=== PATIENT | female | born 1990 | race African-American/Black ===

== ENCOUNTER 2017-01-06 19:02 | Emergency (ER) | payer OTHER ==
[2017-01-06] MEDS ORDERED: Aspirin Low Dose CHEW TAB* 81 MG PO ONE (19:39)
[2017-01-06] MEDS ORDERED: Ondansetron ODT TAB* 4 MG PO ONE (20:00)
[2017-01-06] MEDS ORDERED: Ketorolac INJ* 60 MG/2 ML VIAL IM ONE (20:00)
--- NOTE | 2017-01-06 20:03 | RAD ---
INDICATION: Chest pain COMPARISON: Chest x-ray June 17, 2016 TECHNIQUE: PA and lateral dual-energy views were obtained. FINDINGS: Bones/Soft Tissues: There are no acute bony findings. Cardiomediastinal: The cardiomediastinal silhouette is normal. Lungs: There are no infiltrates. Pleura: There are no pleural effusions. Other: None IMPRESSION: NO ACTIVE DISEASE.
[2017-01-06 20:07] LABS: Hematocrit 36 % (35-47); Hemoglobin 11.5 g/dl (12.0-16.0); Mean Corpuscular HGB Conc 32 g/dl (31-36); Mean Corpuscular Hemoglobin 25 pg (27-31); Mean Corpuscular Volume 76 fL (80-97); Mean Platelet Volume 7 um3 (7.4-10.4); Red Blood Count 4.69 10^6/ul (4.0-5.4); Red Cell Distribution Width 15 % (10.5-15); White Blood Count 4.2 10^3/ul (3.5-10.8)
[2017-01-06 20:30] LABS: Albumin 3.5 g/dL (3.2-5.2); BUN/Creatinine Ratio 10.7 (8-20); Calcium 9.1 mg/dL (8.6-10.3); EGFR Non-African American 65.3 (>60); Globulin 3.7 g/dL (2-4); Magnesium 1.9 mg/dL (1.9-2.7); Potassium 3.7 mmol/L (3.5-5.0); Total Bilirubin 0.3 mg/dL (0.2-1.0); Total Protein 7.2 g/dL (6.4-8.9)
[2017-01-06] MEDS ORDERED: Iohexol 350* (CONTRAST) 500 ML MDV IV ONE (21:09)
--- NOTE | 2017-01-06 21:54 | RAD ---
INDICATION: Chest pain. Short of breath. Evaluate for pulmonary embolus. COMPARISON: CTA chest March 02, 2011 TECHNIQUE: Axial source images were obtained from the thoracic inlet to the hemidiaphragms following administration of [address] angiographic technique was utilized. Coronal and sagittal reconstructed images were acquired. CHEST FINDINGS: Neck/thyroid: The visualized neck to include the thyroid appear normal. Chest wall: There are no acute abnormalities of the bony thorax or chest wall. There is no supraclavicular, infraclavicular, or axillary lymphadenopathy. Lungs : There are no pulmonary parenchymal masses or infiltrates. The pulmonary interstitium appears normal. There are no endobronchial lesions. Cardiomediastinal structures: There is no CT evidence of acute pulmonary embolic disease. The heart is normal in size. There is no pericardial effusion. There is no evidence of aortic aneurysm or dissection. There is no mediastinal or hilar adenopathy. The esophagus appears normal. Pleura : There are no pleural-based masses or effusions. Other: None. IMPRESSION: NO CT EVIDENCE OF ACUTE PULMONARY EMBOLIC DISEASE.
[2017-01-06 22:20] VITALS: BP 133/78
--- NOTE | 2017-02-26 23:12 | ED ---
Evin Thompson Billy, scribed for Gato Jackson MD on 01/06/17 at 1936 . HPI Chest Pain - HPI Summary HPI Summary: Patient is a 26 year-old female coming to [facility] presenting with intermittent chest pain since last night. She describes sharp pain in the right anterior region of her chest. Severity 10/10. She also reports associated SOB. Patient took Tylenol for her symptoms without improvement. Pain is not worse with deep breaths. She denies any fever, but she has had a moderate productive cough for the last few days (yellow sputum). Patient denies any similar previous episodes or any cardiac history. - History of Current Complaint Chief Complaint: EDChestPainROMI Time Seen by Provider: 01/06/17 19:24 Hx Obtained From: Patient Onset/Duration: Started Hours Ago Timing: Intermittent Initial Severity: Moderate Current Severity: Moderate Pain Intensity: 10 Pain Scale Used: 0-10 Numeric Chest Pain Location: Right Anterior Chest Pain Radiates: No Character: Sharp/Stabbing Aggravating Factor(s): Nothing Alleviating Factor(s): Nothing Associated Signs and Symptoms: Positive: Chest Pain, Shortness of Breath, Productive Cough. Negative: Fever - Allergy/Home Medications Allergies/Adverse Reactions: Allergies Allergy/AdvReac Type Severity Reaction Status Date / Time Pyridoxine [From Beesix] Allergy Intermediate Hives Verified 10/09/16 10:05 Shrimp Flavor Allergy Intermediate swelling Verified 10/09/16 10:05 itching Salamidacetic Acid Allergy swelling,it Verified 10/09/16 10:05 valente Shellfish Allergy Allergy Swelling Verified 10/09/16 10:05 Of Face,Lips,& Throat blueberries Allergy Intermediate sweilling Uncoded 10/09/16 10:05 ,itching SALT WATER SEAFOOD Allergy Swelling Uncoded 10/09/16 10:05 Of Face,Lips,& Throat PMH/Surg Hx/FS Hx/Imm Hx Endocrine/Hematology History: Denies: Hx Diabetes Cardiovascular History: Denies: Hx Myocardial Infarction Respiratory History: Reports: Hx Asthma GI History: Comment Only: Other GI Disorders - pt obese, 5 4" and 250 lbs. Infectious Disease History: No Infectious Disease History: Denies: History Other Infectious Disease, Traveled Outside the [place] in Last 30 Days - Family History Known Family History: Positive: Diabetes - Mother Negative: Cardiac Disease, Hypertension - Social History Alcohol Use: None Substance Use Type: Reports: None Smoking Status (MU): Never Smoked Tobacco Review of Systems Negative: Fever Positive: Chest Pain Positive: Shortness Of Breath, Cough All Other Systems Reviewed And Are Negative: Yes Physical Exam Triage Information Reviewed: Yes Vital Signs On Initial Exam: Initial Vitals Temp Pulse Resp BP Pulse Ox 98.2 F 94 20 154/83 100 01/06/17 19:08 01/06/17 19:08 01/06/17 19:08 01/06/17 19:08 01/06/17 19:08 Vital Signs Reviewed: Yes Appearance: Positive: Well-Appearing, No Pain Distress Skin: Positive: Warm Head/Face: Positive: Normal Head/Face Inspection Eyes: Positive: MAEGAN ENT: Positive: Hearing grossly normal Neck: Positive: Supple Respiratory/Lung Sounds: Positive: Clear to Auscultation, Breath Sounds Present Cardiovascular: Positive: RRR Abdomen Description: Positive: Nontender, Soft Bowel Sounds: Positive: Present Musculoskeletal: Positive: Strength/ROM Intact Neurological: Positive: Alert, Oriented to Person Place, Time Diagnostics - Vital Signs Vital Signs Temp Pulse Resp BP Pulse Ox 01/06/17 19:08 98.2 F 94 20 154/83 100 - Laboratory Lab Results: Lab Results 01/06/17 01/06/17 01/06/17 Range/Units 19:50 19:50 19:50 WBC 4.2 (3.5-10.8) 10^3/ul RBC 4.69 (4.0-5.4) 10^6/ul Hgb 11.5 L (12.0-16.0) g/dl Hct 36 (35-47) % MCV 76 L (80-97) fL MCH 25 L (27-31) pg MCHC 32 (31-36) g/dl RDW 15 (10.5-15) % Plt Count 254 (150-450) 10^3/ul MPV 7 L (7.4-10.4) um3 Neut % (Auto) 54.4 (38-83) % Lymph % (Auto) 32.4 (25-47) % [place] % (Auto) 9.2 H (1-9) % Eos % (Auto) 3.4 (0-6) % Baso % (Auto) 0.6 (0-2) % Absolute Neuts (auto) 2.3 (1.5-7.7) 10^3/ul Absolute Lymphs (auto) 1.4 (1.0-4.8) 10^3/ul Absolute Monos (auto) 0.4 (0-0.8) 10^3/ul Absolute Eos (auto) 0.1 (0-0.6) 10^3/ul Absolute Basos (auto) 0 (0-0.2) 10^3/ul Absolute Nucleated RBC 0.01 10^3/ul Nucleated RBC % 0.1 D-Dimer, Quantitative 357 H (Less Than 230) ng/mL Sodium 135 (133-145) mmol/L Potassium 3.7 (3.5-5.0) mmol/L Chloride 105 (101-111) mmol/L Carbon Dioxide 26 (22-32) mmol/L Anion Gap 4 (2-11) mmol/L BUN 11 (6-24) mg/dL Creatinine 1.03 H (0.51-0.95) mg/dL Est GFR ( Amer) 84.0 (>60) Est GFR (Non-Af Amer) 65.3 (>60) BUN/Creatinine Ratio 10.7 (8-20) Glucose 90 (70-100) mg/dL Calcium 9.1 (8.6-10.3) mg/dL Magnesium 1.9 (1.9-2.7) mg/dL Total Bilirubin 0.30 (0.2-1.0) mg/dL AST 11 L (13-39) U/L ALT 9 (7-52) U/L Alkaline Phosphatase 72 (34-104) U/L Troponin I 0.00 (<0.04) ng/mL Total Protein 7.2 (6.4-8.9) g/dL Albumin 3.5 (3.2-5.2) g/dL Globulin 3.7 (2-4) g/dL Albumin/Globulin Ratio 0.9 L (1-3) Result Diagrams: 01/06/17 19:50 01/06/17 19:50 Lab Statement: Any lab studies that have been ordered have been reviewed, and results considered in the medical decision making process. - Radiology CXR Xray Interpretation: No Acute Changes Radiology Interpretation Completed By: Radiologist - CT CTA Chest CT Interpretation: No Acute Changes CT Interpretation Completed By: Radiologist - EKG 1914 EKG Interpretation: NSR 80 bpm, no ST elevation Chest Pain Course/Dx - Diagnoses Provider Diagnoses: Chest pain, Pleurisy Discharge - Discharge Plan Condition: Stable Disposition: HOME Prescriptions: Naproxen TAB* [Naprosyn TAB*] 500 mg PO BID #30 tab Patient Education Materials: Chest Pain (ED), Pleurisy (ED) Referrals: Yani Banks CLINICAL TRIALS MANAGER [Primary Care Provider] - The documentation as recorded by the Evin mccoy Billy accurately reflects the service I personally performed and the decisions made by me, Gato Jackson MD.
== END 2017-01-06 22:19 | disposition home or self-care (01) ==
LOC: ED 19:02
DX: R07.9 Chest pain, unspecified (principal); R09.1 Pleurisy; R06.02 Shortness of breath; R05 Cough
CPT/HCPCS: 36415; 71020; 71275; 80053; 83735; 84484; 85025; 85379; 93005; 99284; A9270-GY; J1885; Q9967

== ENCOUNTER 2017-01-31 23:09 | Emergency (ER) | payer OTHER ==
[2017-01-31] MEDS ORDERED: predniSONE TAB* 20 MG PO ONE (23:50)
[2017-02-01 00:20] VITALS: BP 134/57
--- NOTE | 2017-02-01 01:21 | ED ---
Mathieu Thompson Matthew, scribed for Zeke Lopez on 02/01/17 at 0000 . Allergic Reaction/Systemic - HPI Summary HPI Summary: A 26 y/o female presents to the ED with SOB since 22:00 today. The patient was cooking shrimp when she inhaled smoke and began to have difficulty breathing. She has a Hx of asthma. The patient received a treatment in the ambulance, which relieved her symptoms. She's cook shrimp in the past without problems. The mother also states that her humidifier may have had black mold in the filter. - History of Current Complaint Chief Complaint: EDShortnessOfBreath Time Seen by Provider: 01/31/17 23:43 Hx Obtained From: Patient Hx Last Menstrual Period: 06/08/15 Onset/Duration: Sudden Onset, Started hours ago, Still Present Severity Initially: Moderate Severity Currently: None Associated Signs And Symptoms: Positive: Difficulty Breathing - Allergies/Home Medications Allergies/Adverse Reactions: Allergies Allergy/AdvReac Type Severity Reaction Status Date / Time Pyridoxine [From Beesix] Allergy Intermediate Hives Verified 10/09/16 10:05 Shrimp Flavor Allergy Intermediate swelling Verified 10/09/16 10:05 itching Salamidacetic Acid Allergy swelling,it Verified 10/09/16 10:05 valente Shellfish Allergy Allergy Swelling Verified 10/09/16 10:05 Of Face,Lips,& Throat blueberries Allergy Intermediate sweilling Uncoded 10/09/16 10:05 ,itching SALT WATER SEAFOOD Allergy Swelling Uncoded 10/09/16 10:05 Of Face,Lips,& Throat PMH/Surg Hx/FS Hx/Imm Hx Endocrine/Hematology History: Denies: Hx Diabetes Respiratory History: Reports: Hx Asthma GI History: Comment Only: Other GI Disorders - pt obese, 5 4" and 250 lbs. History: Denies: Hx Renal Disease Infectious Disease History: No Infectious Disease History: Denies: History Other Infectious Disease, Traveled Outside the [place] in Last 30 Days - Family History Known Family History: Positive: Diabetes - Mother Negative: Cardiac Disease, Hypertension - Social History Alcohol Use: None Substance Use Type: Reports: None Smoking Status (MU): Never Smoked Tobacco Review of Systems Constitutional: Negative Eyes: Negative ENT: Negative Cardiovascular: Negative Positive: Shortness Of Breath Gastrointestinal: Negative Genitourinary: Negative Musculoskeletal: Negative Skin: Negative Neurological: Negative Psychological: Normal All Other Systems Reviewed And Are Negative: Yes Physical Exam Triage Information Reviewed: Yes Vital Signs On Initial Exam: Initial Vitals Temp Pulse Resp BP Pulse Ox 99.2 F 89 20 141/76 100 01/31/17 23:39 01/31/17 23:39 01/31/17 23:39 01/31/17 23:39 01/31/17 23:39 Vital Signs Reviewed: Yes Appearance: Positive: Well-Appearing, No Pain Distress Skin: Positive: Warm, Skin Color Reflects Adequate Perfusion, Dry Head/Face: Positive: Normal Head/Face Inspection Eyes: Positive: EOMI, MAEGAN ENT: Positive: Normal ENT inspection Neck: Positive: Supple, Nontender Respiratory/Lung Sounds: Positive: Clear to Auscultation, Breath Sounds Present Cardiovascular: Positive: RRR, Pulses are Symmetrical in both Upper and Lower Extremities Abdomen Description: Positive: Nontender, Soft Bowel Sounds: Positive: Present Musculoskeletal: Positive: Normal, Strength/ROM Intact Neurological: Positive: Normal, Sensory/Motor Intact, Alert, Oriented to Person Place, Time Psychiatric: Positive: Affect/Mood Appropriate Diagnostics - Vital Signs Vital Signs Temp Pulse Resp BP Pulse Ox 01/31/17 23:39 99.2 F 89 20 141/76 100 - Laboratory Lab Statement: Any lab studies that have been ordered have been reviewed, and results considered in the medical decision making process. Allergic Reaction Course/Dx - Course Assessment/Plan: The patient is doing well in the ED. Her symptoms were resolved upon arrival. She will be discharged home on Medrol and albuterol and follow-up with her PCP. - Diagnoses Provider Diagnoses: Asthma exacerbation, possible allergic reaction Discharge - Discharge Plan Condition: Stable Disposition: HOME Prescriptions: Albuterol HFA INHALER* [Ventolin HFA Inhaler*] 2 puff INH Q6H PRN #1 mdi MDD 3 PRN Reason: Sob/Wheezing Methylprednisolone [Medrol Dosepak 4 MG*] 0 mg PO .SEE AMANDA INSTRUCTION #1 tab Patient Education Materials: Methylprednisolone (By mouth), Bronchospasm (ED) Referrals: Yani Banks, WELDING MACHINE OPERATOR [facility] [Primary Care Provider] - 3 Days Additional Instructions: Please follow-up with your primary care physician in 3 days. The documentation as recorded by the Mathieu mccoy Matthew accurately reflects the service I personally performed and the decisions made by , Zeke Lopez.
== END 2017-02-01 00:20 | disposition home or self-care (01) ==
LOC: ED 23:09
DX: J45.901 Unspecified asthma with (acute) exacerbation (principal); R06.02 Shortness of breath
CPT/HCPCS: 99282; J7512

== ENCOUNTER 2017-04-17 18:52 | Emergency (ER) | payer MEDICAID ==
[2017-04-17 18:57] VITALS: BP 159/69
--- NOTE | 2017-04-17 20:09 | ED ---
Anne Marie Thompson SooYoung, scribed for Gato Jackson MD on 04/17/17 at 1946 . Lower Extremity - HPI Summary HPI Summary: A 27 y/o F presents to ED with c/o L ankle pain onset of injury a few days ago. Pt states she twisted her ankle a few days, and it was relatively OK at them time, but the pain has worsened today. Pt tried tylenol and IBP with no relief. - History of Current Complaint Chief Complaint: EDExtremityLower Stated Complaint: LEFT ANKLE INJURY Time Seen by Provider: 04/17/17 19:44 Hx Obtained From: Patient Hx Last Menstrual Period: 06/08/15 Mechanism Of Injury: Twisted Onset of Pain: Days, Prior to Arrival Onset/Duration: Still Present Severity Currently: Moderate Pain Intensity: 7 Pain Scale Used: 0-10 Numeric Timing: Constant Location: Is Discrete @ - L ankle Aggravating Factor(s): Ambulation, Weight Bearing - Allergies/Home Medications Allergies/Adverse Reactions: Allergies Allergy/AdvReac Type Severity Reaction Status Date / Time Pyridoxine [From Beesix] Allergy Intermediate Hives Verified 04/17/17 18:55 Shrimp Flavor Allergy Intermediate swelling Verified 04/17/17 18:55 itching Salamidacetic Acid Allergy swelling,it Verified 04/17/17 18:55 valente Shellfish Allergy Allergy Swelling Verified 04/17/17 18:55 Of Face,Lips,& Throat blueberries Allergy Intermediate sweilling Uncoded 04/17/17 18:55 ,itching SALT WATER SEAFOOD Allergy Swelling Uncoded 04/17/17 18:55 Of Face,Lips,& Throat PMH/Surg Hx/FS Hx/Imm Hx Previously Healthy: Yes Endocrine/Hematology History: Denies: Hx Diabetes Respiratory History: Reports: Hx Asthma GI History: Comment Only: Other GI Disorders - pt obese, 5 4" and 250 lbs. History: Denies: Hx Renal Disease Infectious Disease History: No Infectious Disease History: Denies: History Other Infectious Disease, Traveled Outside the [place] in Last 30 Days - Family History Known Family History: Positive: Diabetes - Mother Negative: Cardiac Disease, Hypertension - Social History Occupation: Employed Full-time Lives: With Family Alcohol Use: None Hx Substance Use: No Substance Use Type: Reports: None Hx Tobacco Use: No Smoking Status (MU): Never Smoked Tobacco Review of Systems Negative: Fever Positive: Arthralgia - ankle pain All Other Systems Reviewed And Are Negative: Yes Physical Exam Triage Information Reviewed: Yes Vital Signs On Initial Exam: Initial Vitals Temp Pulse Resp BP Pulse Ox 98.7 F 76 18 159/69 100 04/17/17 18:55 04/17/17 18:55 04/17/17 18:55 04/17/17 18:55 04/17/17 18:55 Vital Signs Reviewed: Yes Appearance: Positive: Well-Appearing, No Pain Distress, Obese Skin: Positive: Warm Head/Face: Positive: Normal Head/Face Inspection Eyes: Positive: MAEGAN ENT: Positive: Hearing grossly normal Neck: Positive: Supple Respiratory/Lung Sounds: Positive: Breath Sounds Present Musculoskeletal: Positive: Other - lt ankle mild diffuse sts, no deformity, from Neurological: Positive: Sensory/Motor Intact, Alert, Oriented to Person Place, Time Psychiatric: Positive: Affect/Mood Appropriate Diagnostics - Vital Signs Vital Signs Temp Pulse Resp BP Pulse Ox 04/17/17 18:55 98.7 F 76 18 159/69 100 - Laboratory Lab Statement: Any lab studies that have been ordered have been reviewed, and results considered in the medical decision making process. - Radiology L ANKLE XR Xray Interpretation: No Acute Changes Radiology Interpretation Completed By: ED Physician Lower Extremity Course/Dx - Course Course Of Treatment: Pt is a 27 y/o F presenting with L ankle pain onset of injury "a few days ago." The pain has worsened today. Pt tried tylenol and IBP with no relief. L ankle XR is nml. Will D/C home with gel splint and crutches. - Diagnoses Provider Diagnoses: Ankle sprain Discharge - Discharge Plan Condition: Stable Disposition: HOME Patient Education Materials: Ankle Sprain (ED), Crutch Instructions (ED), Ankle Stirrup Splint (ED) Referrals: Yani Banks NP [Primary Care Provider] - Additional Instructions: Please return to ED with any new or worsening symptoms. The documentation as recorded by the Anne Marie mccoy SooYoung accurately reflects the service I personally performed and the decisions made by me, Gato Jackson MD.
--- NOTE | 2017-04-17 20:17 | RAD ---
HISTORY: Left ankle pain, subacute trauma COMPARISONS: March 29, 2013 VIEWS: 3, Frontal, lateral, and oblique views of the left ankle FINDINGS: BONE DENSITY: Normal. BONES: There is no displaced fracture. JOINTS: There is no arthropathy. ALIGNMENT: There is no dislocation. SOFT TISSUES: Unremarkable. OTHER FINDINGS: None. IMPRESSION: NO ACUTE OSSEOUS INJURY. IF SYMPTOMS PERSIST, RECOMMEND REPEAT IMAGING.
== END 2017-04-17 20:36 | disposition home or self-care (01) ==
LOC: ED 18:52
DX: S93.402A Sprain of unspecified ligament of left ankle, initial encounter (principal); X58.XXXA Exposure to other specified factors, initial encounter; Y92.9 Unspecified place or not applicable; Z88.8 Allergy status to other drugs, medicaments and biological substances
CPT/HCPCS: 99281

== ENCOUNTER 2017-05-11 07:39 | Emergency (ER) | payer MEDICAID, OTHER ==
[2017-05-11] MEDS ORDERED: Ondansetron INJ* 2 MG/ML VIAL IV ONE (08:07)
[2017-05-11] MEDS ORDERED: NS 0.9% 1000 ML* 2,000 ML IV ONE (08:07)
[2017-05-11] MEDS ORDERED: Ketorolac INJ* 30 MG/ML 1 ML VIAL IM ONE (08:07)
[2017-05-11] MEDS ORDERED: Ketorolac INJ* 30 MG/ML 1 ML VIAL IV PUSH ONE (08:44)
[2017-05-11 09:03] LABS: Hematocrit 28 % (35-47); Hemoglobin 9.3 g/dl (12.0-16.0); Mean Corpuscular HGB Conc 33 g/dl (31-36); Mean Corpuscular Hemoglobin 25 pg (27-31); Mean Corpuscular Volume 75 fL (80-97); Mean Platelet Volume 8 um3 (7.4-10.4); Red Blood Count 3.79 10^6/ul (4.0-5.4); Red Cell Distribution Width 15 % (10.5-15); White Blood Count 12.7 10^3/ul (3.5-10.8)
[2017-05-11 09:23] LABS: ALT 7 U/L (7-52); Albumin 3.6 g/dL (3.2-5.2); Alkaline Phosphatase 69 U/L (34-104); BUN/Creatinine Ratio 10.1 (8-20); Blood Urea Nitrogen 10 mg/dL (6-24); C Reactive Protein 64.02 mg/L (< 5.00); CO2 Carbon Dioxide 23 mmol/L (22-32); Chloride 105 mmol/L (101-111); Creatine Kinase 74 U/L (10-223); EGFR African American 87.2 (>60); EGFR Non-African American 67.8 (>60); Globulin 3.9 g/dL (2-4); Glucose 98 mg/dL (70-100); Lipase 18 U/L (11.0-82.0); Sodium 136 mmol/L (133-145); Total Protein 7.5 g/dL (6.4-8.9)
--- NOTE | 2017-05-11 09:23 | RAD ---
Indication: Cough, sore throat, fever. Vomiting. Comparison: January 06, 2017 CT thorax. Technique: Sitting AP and lateral chest views. Report: Obese body habitus limits image quality. Clear lungs and pleural spaces. Negative for pneumothorax. The heart, pulmonary vasculature, and mediastinal contours are unremarkable. IMPRESSION: No evidence for pneumonia or other acute intrathoracic disease.
[2017-05-11 09:24] LABS: Anion Gap 8 mmol/L (2-11)
[2017-05-11 09:35] LABS: Mono Internal Control QC Line Present
[2017-05-11 09:36] LABS: Manual Entry Verification JEA0012
[2017-05-11] MEDS ORDERED: Albuterol 0.5% CONC NEB.SOL* 5 MG/ML 20 ml BOT INH ONE (09:45)
[2017-05-11] MEDS ORDERED: Albuterol 2.5 MG/3 ML NEB.SOL* (0.083%) INH ONE (09:58)
[2017-05-11] MEDS ORDERED: Albuterol 2.5 MG/3 ML NEB.SOL* (0.083%) ONE (10:01)
[2017-05-11 11:26] LABS: Urine Bilirubin Negative (Negative); Urine Glucose Negative (Negative); Urine Nitrite Negative (Negative)
[2017-05-11 13:01] VITALS: BP 133/70
--- NOTE | 2017-05-11 18:04 | ED ---
Jose M Thompson Claudia, scribed for Ancelmo Meyers MD on 05/11/17 at 0807 . Complex/Multi-Sys Presentation - HPI Summary HPI Summary: 27 year old female presents to the ED with mutli-Sx. Pt has chief complaints of NVD, sore throat, and PACHECO. Pt sates gradual onset over the past 2 days, worsening today. Pt states that she has had 3 bouts of emesis today and had some diarrhea yesterday and the day before. Pt has been unable to tolerate PO intake and has not produced urine since yesterday. She states that her PACHECO began last night and states it is localized in the frontal lobe with no radiating quality but does note it to be the worst PACHECO she has ever experienced. Pt admits to associated Sx of CP, SOB,fever(100.5F last night and 99.5F this am), chills, photophobia, lightheaded, back pain, and leg pain. She also has some frontal sinus pain. Pt denies any new swelling to her legs. She does admit to recently coming back from [place] where she denies eating any raw seafood or any bad food. She does deny any abdominal pain. She also denies being on any antibiotics recently. Pt states that she still has her tonsils and has had strep in the past but has never had mono. - History Of Current Complaint Chief Complaint: EDNauseaVomitDiarrh Time Seen by Provider: 05/11/17 07:57 Hx Obtained From: Patient Onset/Duration: Gradual Onset, Lasting Days, Still Present, Worse Since - today Timing: Constant Associated Signs And Symptoms: Positive: Headache - frontal, SOB, Chest Pain, Nausea, Vomiting, Diarrhea, Back Pain, Fever, Other - lightheadedness, leg pain , photophobia, fever, chills.. Negative: Abdominal Pain - Allergies/Home Medications Allergies/Adverse Reactions: Allergies Allergy/AdvReac Type Severity Reaction Status Date / Time Pyridoxine [From Beesix] Allergy Intermediate Hives Verified 04/17/17 18:55 Shrimp Flavor Allergy Intermediate swelling Verified 04/17/17 18:55 itching Salamidacetic Acid Allergy swelling,it Verified 04/17/17 18:55 valente Shellfish Allergy Allergy Swelling Verified 04/17/17 18:55 Of Face,Lips,& Throat blueberries Allergy Intermediate sweilling Uncoded 04/17/17 18:55 ,itching SALT WATER SEAFOOD Allergy Swelling Uncoded 04/17/17 18:55 Of Face,Lips,& Throat PMH/Surg Hx/FS Hx/Imm Hx Previously Healthy: Yes Endocrine/Hematology History: Denies: Hx Diabetes Cardiovascular History: Denies: Hx Hypertension Respiratory History: Reports: Hx Asthma GI History: Comment Only: Other GI Disorders - pt obese, 5 4" and 250 lbs. History: Denies: Hx Renal Disease Infectious Disease History: No Infectious Disease History: Denies: History Other Infectious Disease, Traveled Outside the [place] in Last 30 Days - Family History Known Family History: Positive: None, Diabetes - Mother Negative: Cardiac Disease, Hypertension - Social History Alcohol Use: None Hx Substance Use: No Substance Use Type: Reports: None Hx Tobacco Use: No Smoking Status (MU): Never Smoked Tobacco Review of Systems Positive: Fever Positive: Photophobia Positive: Sore Throat Positive: Chest Pain Positive: Shortness Of Breath Positive: Vomiting, Diarrhea, Nausea. Negative: Abdominal Pain Genitourinary: Negative Musculoskeletal: Negative Negative: Rash Neurological: Other - lightheaded Positive: Headache Psychological: Normal All Other Systems Reviewed And Are Negative: Yes Physical Exam - Summary Physical Exam Summary: The patient is well-nourished in no acute distress and in no acute pain. The skin is warm and dry and skin color reflects adequate perfusion. Skin turgor is decreased. HEENT: The head is normocephalic and atraumatic. The pupils are equal and reactive. The conjunctivae are clear and without drainage. Nares are patent and without drainage. Mouth reveals dry mucous membranes and the throat is without erythema and exudate to the tonsils. The external ears are intact. The ear canals are patent and without drainage. The tympanic membranes are intact.Tenderness over the frontal sinuses. Neck is supple with full range of motion and non-tender. There are no carotid bruits. There is no neck vein distension. Respiratory: Chest is non-tender. Lungs are clear to auscultation and breath sounds are symmetrical and equal. Cardiovascular: Hear is regular rate and rhythm. There is no murmur or rub auscultated. There is no peripheral edema and pulses are symmetrical and equal. Capillary refill 2 seconds. Abdomen: The abdomen is soft and non-tender, obese. There are normal bowel sounds heard in all four quadrants and there is no organomegaly palpated. Musculoskeletal: There is no back pain noted. Extremities are non-tender with full range of motion. There is good capillary refill. There is no peripheral edema or calf tenderness elicited. Neurological: Patient is alert and oriented to person, place and time. The patient has symmetrical motor strength in all four extremities. Cranial nerves are grossly intact. Deep tendon reflexes are symmetrical and equal in all four extremities. Psychiatric: The patient has an appropriate affect and does not exhibit any anxiety or depression. Triage Information Reviewed: Yes Vital Signs On Initial Exam: Initial Vitals Temp Pulse Resp BP Pulse Ox 99.3 F 95 18 186/87 100 05/11/17 07:40 05/11/17 07:40 05/11/17 07:40 05/11/17 07:40 05/11/17 07:40 Vital Signs Reviewed: Yes - [place] Coma Scale Coma Scale Total: 15 Diagnostics - Vital Signs Vital Signs Temp Pulse Resp BP Pulse Ox 05/11/17 07:44 99.3 F 97 18 186/87 99 05/11/17 07:40 99.3 F 95 18 186/87 100 - Laboratory Lab Results: Lab Results 05/11/17 05/11/17 05/11/17 Range/Units 08:20 08:52 08:52 WBC 12.7 H (3.5-10.8) 10^3/ul RBC 3.79 L (4.0-5.4) 10^6/ul Hgb 9.3 L (12.0-16.0) g/dl Hct 28 L (35-47) % MCV 75 L (80-97) fL MCH 25 L (27-31) pg MCHC 33 (31-36) g/dl RDW 15 (10.5-15) % Plt Count 324 (150-450) 10^3/ul MPV 8 (7.4-10.4) um3 Neut % (Auto) 83.8 H (38-83) % Lymph % (Auto) 9.4 L (25-47) % [place] % (Auto) 5.6 (1-9) % Eos % (Auto) 0.6 (0-6) % Baso % (Auto) 0.6 (0-2) % Absolute Neuts (auto) 10.6 H (1.5-7.7) 10^3/ul Absolute Lymphs (auto) 1.2 (1.0-4.8) 10^3/ul Absolute Monos (auto) 0.7 (0-0.8) 10^3/ul Absolute Eos (auto) 0.1 (0-0.6) 10^3/ul Absolute Basos (auto) 0.1 (0-0.2) 10^3/ul Absolute Nucleated RBC 0.01 10^3/ul Nucleated RBC % 0 Sodium 136 (133-145) mmol/L Potassium TNP Chloride 105 (101-111) mmol/L Carbon Dioxide 23 (22-32) mmol/L Anion Gap 8 (2-11) mmol/L BUN 10 (6-24) mg/dL Creatinine 0.99 H (0.51-0.95) mg/dL Est GFR ( Amer) 87.2 (>60) Est GFR (Non-Af Amer) 67.8 (>60) BUN/Creatinine Ratio 10.1 (8-20) Glucose 98 (70-100) mg/dL Lactic Acid (0.5-2.0) mmol/L Calcium 9.0 (8.6-10.3) mg/dL Total Bilirubin 0.40 (0.2-1.0) mg/dL AST TNP ALT 7 (7-52) U/L Alkaline Phosphatase 69 (34-104) U/L Total Creatine Kinase 74 (10-223) U/L Troponin I 0.00 (<0.04) ng/mL C-Reactive Protein 64.02 H (< 5.00) mg/L Total Protein 7.5 (6.4-8.9) g/dL Albumin 3.6 (3.2-5.2) g/dL Globulin 3.9 (2-4) g/dL Albumin/Globulin Ratio 0.9 L (1-3) Lipase 18 (11.0-82.0) U/L Beta HCG, Quant < 0.60 mIU/mL Urine Color Urine Appearance Urine pH (5-9) Ur Specific [place] (1.010-1.030) Urine Protein (Negative) Urine Ketones (Negative) Urine Blood (Negative) Urine Nitrate (Negative) Urine Bilirubin (Negative) Urine Urobilinogen (Negative) Ur Leukocyte Esterase (Negative) Urine Glucose (Negative) Monoscreen Negative (Negative) Group A Strep Rapid Negative (Negative) 05/11/17 05/11/17 Range/Units 08:52 11:10 WBC (3.5-10.8) 10^3/ul RBC (4.0-5.4) 10^6/ul Hgb (12.0-16.0) g/dl Hct (35-47) % MCV (80-97) fL MCH (27-31) pg MCHC (31-36) g/dl RDW (10.5-15) % Plt Count (150-450) 10^3/ul MPV (7.4-10.4) um3 Neut % (Auto) (38-83) % Lymph % (Auto) (25-47) % [place] % (Auto) (1-9) % Eos % (Auto) (0-6) % Baso % (Auto) (0-2) % Absolute Neuts (auto) (1.5-7.7) 10^3/ul Absolute Lymphs (auto) (1.0-4.8) 10^3/ul Absolute Monos (auto) (0-0.8) 10^3/ul Absolute Eos (auto) (0-0.6) 10^3/ul Absolute Basos (auto) (0-0.2) 10^3/ul Absolute Nucleated RBC 10^3/ul Nucleated RBC % Sodium (133-145) mmol/L Potassium Chloride (101-111) mmol/L Carbon Dioxide (22-32) mmol/L Anion Gap (2-11) mmol/L BUN (6-24) mg/dL Creatinine (0.51-0.95) mg/dL Est GFR ( Amer) (>60) Est GFR (Non-Af Amer) (>60) BUN/Creatinine Ratio (8-20) Glucose (70-100) mg/dL Lactic Acid 1.0 (0.5-2.0) mmol/L Calcium (8.6-10.3) mg/dL Total Bilirubin (0.2-1.0) mg/dL AST ALT (7-52) U/L Alkaline Phosphatase (34-104) U/L Total Creatine Kinase (10-223) U/L Troponin I (<0.04) ng/mL C-Reactive Protein (< 5.00) mg/L Total Protein (6.4-8.9) g/dL Albumin (3.2-5.2) g/dL Globulin (2-4) g/dL Albumin/Globulin Ratio (1-3) Lipase (11.0-82.0) U/L Beta HCG, Quant mIU/mL Urine Color Yellow Urine Appearance Clear Urine pH 5.0 (5-9) Ur Specific [place] 1.016 (1.010-1.030) Urine Protein Negative (Negative) Urine Ketones Negative (Negative) Urine Blood Negative (Negative) Urine Nitrate Negative (Negative) Urine Bilirubin Negative (Negative) Urine Urobilinogen Negative (Negative) Ur Leukocyte Esterase Negative (Negative) Urine Glucose Negative (Negative) Monoscreen (Negative) Group A Strep Rapid (Negative) Result Diagrams: 05/11/17 08:52 05/11/17 08:52 Lab Statement: Any lab studies that have been ordered have been reviewed, and results considered in the medical decision making process. - Radiology CXR Xray Interpretation: No Acute Changes - IMPRESSION: No evidence for pneumonia or other acute intrathoracic disease. Radiology Interpretation Completed By: Radiologist - EKG 810 Cardiac Rate: NL EKG Rhythm: Sinus Rhythm - 91 beats/min EKG Interpretation: non specific ST changes no change from 01/06/17. Re-Evaluation - Re-Evaluation 1 Re-Evaluation Time: 12:32 Change: Improved - Pt is improved and is agreebale with the plan to be d/c home with zofran and norco. Complex Multi-Symp Course/Dx Course Of Treatment: MDM: 27 year old female presents to the ED with NVD and PACHECO. After some time in the ED and zofran, toradol and IV fluids the pt has improved and is ready to be d/c home with Rx for zofran and norco. She will follow-up with PCP and return for any new or worsening Sx. - Diagnoses Differential Diagnoses/HQI/PQRI: Metabolic Abnormality, Urinary Tract Infection , Other - pneumonia, viral syndrome, mi, headache, dehydration, mono, strept pharyngitis Provider Diagnoses: Dehydration, Pharyngitis, Headache Discharge - Discharge Plan Condition: Stable Disposition: HOME Prescriptions: HYDROcodone/ACETAMIN 5-325 MG* [[place] 5-325 TAB*] 1 tab PO Q6H PRN #20 tab MDD 4 PRN Reason: headache Ondansetron ODT TAB* [Zofran 4 MG Odt TAB*] 4 mg PO Q8H PRN #20 tab.odt PRN Reason: nausea Patient Education Materials: Hydrocodone/Acetaminophen (By mouth), Ondansetron (By mouth), Dehydration (ED), Gastroenteritis (ED), Acute Nausea and Vomiting ( ED) Referrals: Yani Banks, [employer] [Primary Care Provider] - 2 Days The documentation as recorded by the Jose M mccoy Claudia accurately reflects the service I personally performed and the decisions made by , Ancelmo Meyers MD.
== END 2017-05-11 13:08 | disposition home or self-care (01) ==
LOC: ED 07:39
DX: E86.0 Dehydration (principal); R50.9 Fever, unspecified; H53.149 Visual discomfort, unspecified; J02.9 Acute pharyngitis, unspecified; R07.9 Chest pain, unspecified; R19.7 Diarrhea, unspecified; R11.2 Nausea with vomiting, unspecified; R51 Headache
CPT/HCPCS: 36415; 71020; 80053; 81003; 82550; 83605; 83690; 84484; 84702; 85025; 86140; 86308; 87040; 87651; 93005; 94640; 96372; 96374; 96375; 99282; J1885; J2405

== ENCOUNTER 2017-07-08 09:15 | Emergency (ER) | payer OTHER ==
[2017-07-08] MEDS ORDERED: Ketorolac INJ* 30 MG/ML 1 ML VIAL IV PUSH ONE (09:48)
--- NOTE | 2017-07-08 10:09 | RAD ---
HISTORY: Chest pain COMPARISONS: May 11, 2017 VIEWS:1: Single frontal portable view of the chest at 9:52 AM FINDINGS: LINES AND TUBES: None. CARDIOMEDIASTINAL SILHOUETTE: The cardiomediastinal silhouette is normal for portable technique. PLEURA: The costophrenic angles are sharp. No pleural abnormalities are noted. LUNG PARENCHYMA: The lungs are clear. ABDOMEN: The upper abdomen is clear. There is no subphrenic gas. BONES AND SOFT TISSUES: No bone or soft tissue abnormalities are noted. IMPRESSION: NO ACTIVE CARDIOPULMONARY DISEASE.
[2017-07-08 10:18] LABS: Hematocrit 35 % (35-47); Hemoglobin 11.1 g/dl (12.0-16.0); Mean Corpuscular HGB Conc 32 g/dl (31-36); Mean Corpuscular Hemoglobin 24 pg (27-31); Mean Corpuscular Volume 76 fL (80-97); Mean Platelet Volume 7 um3 (7.4-10.4); Red Blood Count 4.54 10^6/ul (4.0-5.4); Red Cell Distribution Width 15 % (10.5-15); White Blood Count 6.9 10^3/ul (3.5-10.8)
[2017-07-08 10:38] LABS: Albumin 3.7 g/dL (3.2-5.2); BUN/Creatinine Ratio 13.3 (8-20); Calcium 9.2 mg/dL (8.6-10.3); EGFR African American 88.2 (>60); EGFR Non-African American 68.6 (>60); Globulin 4.3 g/dL (2-4); Total Bilirubin 0.3 mg/dL (0.2-1.0)
[2017-07-08 10:54] LABS: TSH (Thyroid Stimulating Horm) 3.58 mcIU/mL (0.34-5.60)
[2017-07-08 11:31] LABS: Magnesium 1.9 mg/dL (1.9-2.7); Potassium 3.9 mmol/L (3.5-5.0)
[2017-07-08 11:41] VITALS: BP 131/73
--- NOTE | 2017-07-09 12:08 | ED ---
Enriqueta Thompson Rebecca, scribed for Joshua Ruiz MD on 07/08/17 at 0954 . HPI Chest Pain - HPI Summary HPI Summary: Pt is a 27 y/o F who presents to ED c/o right anterior CP. Pain began yesterday as upper back pain and this morning is became discrete to the right anterior chest without radiation. Pain is currently severe, ranked 8/10 and characterized as sharp and is reproducible to palpation. Sx aggravated and alleviated by nothing. Additionally c/o mild SOB. Denies fever, chills, cough, abd pain, N/V/D, constipation. - History of Current Complaint Chief Complaint: EDChestPainROMI Time Seen by Provider: 07/08/17 09:44 Hx Obtained From: Patient Hx Last Menstrual Period: 06/08/15 Onset/Duration: Started Days Ago - Yesterday, Still Present Current Severity: Severe Pain Intensity: 8 Pain Scale Used: 0-10 Numeric Chest Pain Location: Right Anterior Chest Pain Radiates: No Character: Sharp/Stabbing Aggravating Factor(s): Nothing Alleviating Factor(s): Nothing Associated Signs and Symptoms: Positive: Shortness of Breath - mild. Negative: Fever, Chills, Nausea, Cough, Abdominal Pain, Vomiting - Allergy/Home Medications Allergies/Adverse Reactions: Allergies Allergy/AdvReac Type Severity Reaction Status Date / Time Pyridoxine [From Beesix] Allergy Intermediate Hives Verified 07/08/17 09:18 Shrimp Flavor Allergy Intermediate swelling Verified 07/08/17 09:18 itching Salamidacetic Acid Allergy swelling,it Verified 07/08/17 09:18 valente Shellfish Allergy Allergy Swelling Verified 07/08/17 09:18 Of Face,Lips,& Throat blueberries Allergy Intermediate sweilling Uncoded 07/08/17 09:18 ,itching SALT WATER SEAFOOD Allergy Swelling Uncoded 07/08/17 09:18 Of Face,Lips,& Throat PMH/Surg Hx/FS Hx/Imm Hx Endocrine/Hematology History: Denies: Hx Diabetes Cardiovascular History: Denies: Hx Hypertension Respiratory History: Reports: Hx Asthma Denies: Hx Chronic Obstructive Pulmonary Disease (COPD) GI History: Comment Only: Other GI Disorders - pt obese, 5 4" and 250 lbs. History: Denies: Hx Renal Disease Infectious Disease History: Denies: History Other Infectious Disease, Traveled Outside the [place] in Last 30 Days - Family History Known Family History: Positive: Diabetes - Mother Negative: Cardiac Disease, Hypertension - Social History Alcohol Use: None Hx Substance Use: No Substance Use Type: Reports: None Hx Tobacco Use: No Smoking Status (MU): Never Smoked Tobacco Review of Systems Negative: Fever, Chills Positive: Chest Pain - right anterior Positive: Shortness Of Breath - mild. Negative: Cough Positive: Other - NEGATIVE: constipation. Negative: Abdominal Pain, Vomiting, Diarrhea, Nausea All Other Systems Reviewed And Are Negative: Yes Physical Exam - Summary Physical Exam Summary: VITAL SIGNS: Reviewed. GENERAL: ~Patient is a well-developed and nourished female who is lying comfortable in the stretcher. ~Patient is not in any acute respiratory distress. HEAD AND FACE: No signs of trauma. ~No ecchymosis, hematomas or skull depressions. No sinus tenderness. EYES: PERRLA, EOMI x 2, No injected conjunctiva, no nystagmus. EARS: Hearing grossly intact. Ear canals and tympanic membranes are within normal limits. MOUTH: Oropharynx within normal limits. NECK: Supple, trachea is midline, no adenopathy, no JVD, no carotid bruit, no c- spine tenderness, neck with full ROM. CHEST: Symmetric, reproducible CP on the right side of the chest. LUNGS: Clear to auscultation bilaterally. No wheezing or crackles. CVS: Regular rate and rhythm, S1 and S2 present, no murmurs or gallops appreciated. ABDOMEN: Soft, non-tender. No signs of distention. No rebound no guarding, and no masses palpated. Bowel sounds are normal. EXTREMITIES: FROM in all major joints, no edema, no cyanosis or clubbing. NEURO: Alert and oriented x 3. No acute neurological deficits. Speech is normal and follows commands. Triage Information Reviewed: Yes Vital Signs On Initial Exam: Initial Vitals Temp Pulse Resp BP Pulse Ox 98.1 F 78 20 130/81 99 07/08/17 09:18 07/08/17 09:18 07/08/17 09:18 07/08/17 09:18 07/08/17 09:18 Vital Signs Reviewed: Yes Diagnostics - Vital Signs Vital Signs Temp Pulse Resp BP Pulse Ox 07/08/17 09:18 98.1 F 78 20 130/81 99 - Laboratory Lab Results: Lab Results 07/08/17 07/08/17 07/08/17 Range/Units 10:05 10:05 10:05 WBC 6.9 (3.5-10.8) 10^3/ul RBC 4.54 (4.0-5.4) 10^6/ul Hgb 11.1 L (12.0-16.0) g/dl Hct 35 (35-47) % MCV 76 L (80-97) fL MCH 24 L (27-31) pg MCHC 32 (31-36) g/dl RDW 15 (10.5-15) % Plt Count 307 (150-450) 10^3/ul MPV 7 L (7.4-10.4) um3 Neut % (Auto) 58.4 (38-83) % Lymph % (Auto) 33.0 (25-47) % [place] % (Auto) 5.9 (1-9) % Eos % (Auto) 1.5 (0-6) % Baso % (Auto) 1.2 (0-2) % Absolute Neuts (auto) 4.0 (1.5-7.7) 10^3/ul Absolute Lymphs (auto) 2.3 (1.0-4.8) 10^3/ul Absolute Monos (auto) 0.4 (0-0.8) 10^3/ul Absolute Eos (auto) 0.1 (0-0.6) 10^3/ul Absolute Basos (auto) 0.1 (0-0.2) 10^3/ul Absolute Nucleated RBC 0.01 10^3/ul Nucleated RBC % 0.1 Sodium 138 (133-145) mmol/L Potassium 3.9 (3.5-5.0) mmol/L Chloride 108 (101-111) mmol/L Carbon Dioxide 25 (22-32) mmol/L Anion Gap 5 (2-11) mmol/L BUN 13 (6-24) mg/dL Creatinine 0.98 H (0.51-0.95) mg/dL Est GFR ( Amer) 88.2 (>60) Est GFR (Non-Af Amer) 68.6 (>60) BUN/Creatinine Ratio 13.3 (8-20) Glucose 93 (70-100) mg/dL Lactic Acid 0.7 (0.5-2.0) mmol/L Calcium 9.2 (8.6-10.3) mg/dL Magnesium 1.9 (1.9-2.7) mg/dL Total Bilirubin 0.30 (0.2-1.0) mg/dL AST 13 (13-39) U/L ALT 12 (7-52) U/L Alkaline Phosphatase 73 (34-104) U/L Total Creatine Kinase 69 (10-223) U/L CK-MB (CK-2) 0.8 (0.6-6.3) ng/mL Troponin I 0.00 (<0.04) ng/mL B-Natriuretic Peptide ( - 100) pg/mL Total Protein 8.0 (6.4-8.9) g/dL Albumin 3.7 (3.2-5.2) g/dL Globulin 4.3 H (2-4) g/dL Albumin/Globulin Ratio 0.9 L (1-3) TSH 3.58 (0.34-5.60) mcIU/mL 07/08/17 Range/Units 10:05 WBC (3.5-10.8) 10^3/ul RBC (4.0-5.4) 10^6/ul Hgb (12.0-16.0) g/dl Hct (35-47) % MCV (80-97) fL MCH (27-31) pg MCHC (31-36) g/dl RDW (10.5-15) % Plt Count (150-450) 10^3/ul MPV (7.4-10.4) um3 Neut % (Auto) (38-83) % Lymph % (Auto) (25-47) % [place] % (Auto) (1-9) % Eos % (Auto) (0-6) % Baso % (Auto) (0-2) % Absolute Neuts (auto) (1.5-7.7) 10^3/ul Absolute Lymphs (auto) (1.0-4.8) 10^3/ul Absolute Monos (auto) (0-0.8) 10^3/ul Absolute Eos (auto) (0-0.6) 10^3/ul Absolute Basos (auto) (0-0.2) 10^3/ul Absolute Nucleated RBC 10^3/ul Nucleated RBC % Sodium (133-145) mmol/L Potassium (3.5-5.0) mmol/L Chloride (101-111) mmol/L Carbon Dioxide (22-32) mmol/L Anion Gap (2-11) mmol/L BUN (6-24) mg/dL Creatinine (0.51-0.95) mg/dL Est GFR ( Amer) (>60) Est GFR (Non-Af Amer) (>60) BUN/Creatinine Ratio (8-20) Glucose (70-100) mg/dL Lactic Acid (0.5-2.0) mmol/L Calcium (8.6-10.3) mg/dL Magnesium (1.9-2.7) mg/dL Total Bilirubin (0.2-1.0) mg/dL AST (13-39) U/L ALT (7-52) U/L Alkaline Phosphatase (34-104) U/L Total Creatine Kinase (10-223) U/L CK-MB (CK-2) (0.6-6.3) ng/mL Troponin I (<0.04) ng/mL B-Natriuretic Peptide 29 ( - 100) pg/mL Total Protein (6.4-8.9) g/dL Albumin (3.2-5.2) g/dL Globulin (2-4) g/dL Albumin/Globulin Ratio (1-3) TSH (0.34-5.60) mcIU/mL Result Diagrams: 07/08/17 10:05 07/08/17 10:05 Lab Statement: Any lab studies that have been ordered have been reviewed, and results considered in the medical decision making process. - Radiology CXR Xray Interpretation: No Acute Changes - NO ACTIVE CARDIOPULMONARY DISEASE. Radiology Interpretation Completed By: Radiologist - EKG 0929 Cardiac Rate: NL - 68 bpm EKG Rhythm: Sinus Rhythm EKG Interpretation: T wave inversion at 3 Chest Pain Course/Dx - Course Assessment/Plan: Pt is a 27 y/o F who presents to ED c/o right anterior CP. Pain began yesterday as upper back pain and this morning is became discrete to the right anterior chest without radiation. Pain is currently severe, ranked 8/ 10 and characterized as sharp and is reproducible to palpation. Sx aggravated and alleviated by nothing. Additionally c/o mild SOB. Denies fever, chills, cough, abd pain, N/V/D, constipation. Test results w/o any significant abnormality except Hgb of 11.1. CXR shows no active cardiopulmonary disease. EKG reveals sinus rhythm and R wave inversion at lead 2. The pts pain is reproducible to palpation and with deep inspiration. Therefore, pt was given Toradol for the pain. After Toradol, the pts sx have subsided, the pt is feeling better therefore she will be D/C to home to f/u with PCP. She is hemodynamically stable and A&Ox3. I discussed all the findings and test results with the patient. Patient was instructed to return to the emergency room immediately if any of the symptoms return or worsens. Plan of care was discussed with the patient and understands and agrees. All questions were answered at patient satisfaction. There were no further complaints or concerns. Lung exam before discharge: CTA B/L. Good air exchange. No wheezing or crackles heard. CVS: S1 and S2 present. No murmurs appreciated. Patient is alert and oriented x 3. Patient is hemodynamically stable. Patient will be discharged home with follow up PCP in the next 2-3 days - Chest Pain Differential Diagnosis/HQI/PQRI: Acute IA, ACS, Angina, CHF, Chest Wall, GI Disease, Lower Respiratory Infection, Pulmonary Embolism - Diagnoses Provider Diagnoses: Atypical chest pain Discharge - Discharge Plan Condition: Stable Disposition: HOME Patient Education Materials: Chest Pain (ED) Referrals: Yani Banks NP [Primary Care Provider] - 3 Days The documentation as recorded by the Enriqueta mccoy Rebecca accurately reflects the service I personally performed and the decisions made by , Joshua Ruiz MD.
== END 2017-07-08 11:48 | disposition home or self-care (01) ==
LOC: ED 09:15
DX: R07.89 Other chest pain (principal); R06.02 Shortness of breath
CPT/HCPCS: 36415; 71010; 80053; 82550; 82553; 83605; 83735; 83880; 84443; 84484; 85025; 93005; 96374; 99282; J1885

== ENCOUNTER 2017-07-10 19:01 | Emergency (ER) | payer OTHER ==
[2017-07-10] MEDS ORDERED: Al Hydrox/Mg Hydrox/Simet LIQ* 30 ML UDC PO ONE (22:43)
[2017-07-10] MEDS ORDERED: Ketorolac INJ* 60 MG/2 ML VIAL IM ONE (22:43)
[2017-07-10] MEDS ORDERED: Lidocaine 2% VISCOUS* 15 ML UDC PO ONE (22:43)
[2017-07-10] MEDS ORDERED: Ketorolac INJ* 30 MG/ML 1 ML VIAL IV PUSH ONE (22:58)
[2017-07-10 23:12] LABS: Hematocrit 34 % (35-47); Hemoglobin 11.1 g/dl (12.0-16.0); Mean Corpuscular HGB Conc 33 g/dl (31-36); Mean Corpuscular Hemoglobin 25 pg (27-31); Mean Corpuscular Volume 77 fL (80-97); Mean Platelet Volume 7 um3 (7.4-10.4); Red Blood Count 4.38 10^6/ul (4.0-5.4); Red Cell Distribution Width 15 % (10.5-15); White Blood Count 9.8 10^3/ul (3.5-10.8)
[2017-07-10 23:28] LABS: Albumin 3.7 g/dL (3.2-5.2); BUN/Creatinine Ratio 11.9 (8-20); EGFR African American 85.2 (>60); EGFR Non-African American 66.3 (>60); Globulin 4.2 g/dL (2-4); Potassium 3.4 mmol/L (3.5-5.0); Total Bilirubin 0.3 mg/dL (0.2-1.0); Total Protein 7.9 g/dL (6.4-8.9)
[2017-07-10] MEDS ORDERED: Iohexol 350* (CONTRAST) 500 ML MDV IV ONE (23:50)
--- NOTE | 2017-07-11 02:46 | ED ---
HPI Chest Pain - HPI Summary HPI Summary: 27F presents for right anterior CP for three days. She was evaluated here two days ago and had negative work up. She states she has not taken anything for her pain but it is not getting any better. She has not followed up with her PCP. She states the pain does not radiate anywhere. pain is 8/10 and characterized as sharp and is reproducible to palpation. no SOB. Denies fever, chills, cough, abd pain, N/V/D. She states food does make it worst. She has never had this pain before. She denies any recent illness. - History of Current Complaint Chief Complaint: EDChestPainROMI Time Seen by Provider: 07/10/17 22:32 Hx Last Menstrual Period: 06/08/15 Pain Intensity: 8 - Allergy/Home Medications Allergies/Adverse Reactions: Allergies Allergy/AdvReac Type Severity Reaction Status Date / Time Pyridoxine [From Beesix] Allergy Intermediate Hives Verified 07/10/17 23:06 Shrimp Flavor Allergy Intermediate swelling Verified 07/10/17 23:06 itching Salamidacetic Acid Allergy swelling,it Verified 07/10/17 23:06 valente Shellfish Allergy Allergy Swelling Verified 07/10/17 23:06 Of Face,Lips,& Throat blueberries Allergy Intermediate sweilling Uncoded 07/10/17 23:06 ,itching SALT WATER SEAFOOD Allergy Swelling Uncoded 07/10/17 23:06 Of Face,Lips,& Throat PMH/Surg Hx/FS Hx/Imm Hx Endocrine/Hematology History: Denies: Hx Diabetes Cardiovascular History: Denies: Hx Hypertension Respiratory History: Reports: Hx Asthma Denies: Hx Chronic Obstructive Pulmonary Disease (COPD) GI History: Comment Only: Other GI Disorders - pt obese, 5 4" and 250 lbs. History: Denies: Hx Renal Disease - Immunization History Date of Tetanus Vaccine: unk Date of Influenza Vaccine: utd Infectious Disease History: No Infectious Disease History: Denies: History Other Infectious Disease, Traveled Outside the [place] in Last 30 Days - Family History Known Family History: Positive: None, Diabetes - Mother Negative: Cardiac Disease, Hypertension - Social History Alcohol Use: None Hx Substance Use: No Substance Use Type: Reports: None Hx Tobacco Use: No Smoking Status (MU): Never Smoked Tobacco Review of Systems Negative: Fever Positive: Chest Pain Negative: Shortness Of Breath Negative: Abdominal Pain All Other Systems Reviewed And Are Negative: Yes Physical Exam Triage Information Reviewed: Yes Vital Signs On Initial Exam: Initial Vitals Temp Pulse Resp BP Pulse Ox 97.4 F 71 17 147/65 98 07/10/17 19:03 07/10/17 19:03 07/10/17 19:03 07/10/17 19:03 07/10/17 19:03 Vital Signs Reviewed: Yes Appearance: Positive: Well-Appearing Skin: Positive: Warm, Dry Head/Face: Positive: Normal Head/Face Inspection Eyes: Positive: Normal, EOMI, MAEGAN, Conjunctiva Clear ENT: Positive: Normal ENT inspection, Pharynx normal, TMs normal Respiratory/Lung Sounds: Positive: Clear to Auscultation, Breath Sounds Present , Other - reproducible chest pain on right side of chest Cardiovascular: Positive: Normal, RRR - Burchard Coma Scale Coma Scale Total: 15 Diagnostics - Vital Signs Vital Signs Temp Pulse Resp BP Pulse Ox 07/11/17 00:02 65 12 125/67 98 07/11/17 00:00 62 14 98 07/10/17 23:30 62 13 129/66 98 07/10/17 23:03 97.8 F 62 15 126/65 100 07/10/17 23:00 65 13 126/65 98 07/10/17 22:57 98 07/10/17 22:30 69 16 138/66 97 07/10/17 22:00 69 19 132/82 97 07/10/17 21:55 14 07/10/17 21:54 122/95 07/10/17 19:03 97.4 F 71 17 147/65 98 - Laboratory Lab Results: Lab Results 07/10/17 07/10/17 07/10/17 Range/Units 22:50 22:50 22:50 WBC 9.8 (3.5-10.8) 10^3/ul RBC 4.38 (4.0-5.4) 10^6/ul Hgb 11.1 L (12.0-16.0) g/dl Hct 34 L (35-47) % MCV 77 L (80-97) fL MCH 25 L (27-31) pg MCHC 33 (31-36) g/dl RDW 15 (10.5-15) % Plt Count 296 (150-450) 10^3/ul MPV 7 L (7.4-10.4) um3 Neut % (Auto) 54.7 (38-83) % Lymph % (Auto) 37.4 (25-47) % [place] % (Auto) 5.4 (1-9) % Eos % (Auto) 2.0 (0-6) % Baso % (Auto) 0.5 (0-2) % Absolute Neuts (auto) 5.4 (1.5-7.7) 10^3/ul Absolute Lymphs (auto) 3.7 (1.0-4.8) 10^3/ul Absolute Monos (auto) 0.5 (0-0.8) 10^3/ul Absolute Eos (auto) 0.2 (0-0.6) 10^3/ul Absolute Basos (auto) 0.1 (0-0.2) 10^3/ul Absolute Nucleated RBC 0 10^3/ul Nucleated RBC % 0 D-Dimer, Quantitative 351 H (Less Than 230) ng/mL Sodium 136 (133-145) mmol/L Potassium 3.4 L (3.5-5.0) mmol/L Chloride 104 (101-111) mmol/L Carbon Dioxide 27 (22-32) mmol/L Anion Gap 5 (2-11) mmol/L BUN 12 (6-24) mg/dL Creatinine 1.01 H (0.51-0.95) mg/dL Est GFR ( Amer) 85.2 (>60) Est GFR (Non-Af Amer) 66.3 (>60) BUN/Creatinine Ratio 11.9 (8-20) Glucose 97 (70-100) mg/dL Calcium 9.0 (8.6-10.3) mg/dL Total Bilirubin 0.30 (0.2-1.0) mg/dL AST 11 L (13-39) U/L ALT 10 (7-52) U/L Alkaline Phosphatase 72 (34-104) U/L Troponin I 0.00 (<0.04) ng/mL Total Protein 7.9 (6.4-8.9) g/dL Albumin 3.7 (3.2-5.2) g/dL Globulin 4.2 H (2-4) g/dL Albumin/Globulin Ratio 0.9 L (1-3) Result Diagrams: 07/10/17 22:50 07/10/17 22:50 Lab Statement: Any lab studies that have been ordered have been reviewed, and results considered in the medical decision making process. - CT CTA CT Interpretation: No Acute Changes CT Interpretation Completed By: Radiologist - EKG No standard instances Cardiac Rate: NL EKG Rhythm: Sinus Rhythm ST Segment: Normal Chest Pain Course/Dx - Course Course Of Treatment: 27F presents for right anterior CP for three days. She was evaluated here two days ago and had negative work up. She states she has not taken anything for her pain but it is not getting any better. She has not followed up with her PCP. She states the pain does not radiate anywhere. pain is 8/10 and characterized as sharp and is reproducible to palpation. no SOB. Denies fever, chills, cough, abd pain, N/V/D. She states food does make it worst. She has never had this pain before. on exam reproducible chest pain. EKG normal. labs elevated D-dimer which was elevated in past but got CTA which was normal. denies any calf pain or swelling. explained likely costrochonriditis but could also be GERD. He should try ibuprofen. patient understands and agrees with plan. - Chest Pain Differential Diagnosis/HQI/PQRI: Chest Wall, GI Disease, Lower Respiratory Infection - Diagnoses Provider Diagnoses: Chest pain Discharge - Discharge Plan Condition: Good Disposition: HOME Patient Education Materials: Noncardiac Chest Pain (ED) Referrals: Yani Banks NP [Primary Care Provider] - Additional Instructions: Your chest pain is likely musculoskeletal Take ibuprofen every 6 hours Follow up with primary Return to ED if develop any new or worsening symptoms
[2017-07-11 02:56] VITALS: BP 127/60
--- NOTE | 2017-07-11 07:46 | RAD ---
INDICATION: Chest pain. Short of breath. Evaluate for pulmonary embolus. COMPARISON: Chest x-ray July 08, 2017; CTA chest January 06, 2017 TECHNIQUE: Axial source images were obtained from the thoracic inlet to the hemidiaphragms following administration of [address] angiographic technique was utilized. Coronal and sagittal reconstructed images were acquired. CHEST FINDINGS: Neck/thyroid: The visualized neck to include the thyroid appear normal. Chest wall: There are no acute abnormalities of the bony thorax or chest wall. There is no supraclavicular, infraclavicular, or axillary lymphadenopathy. Lungs : There are no pulmonary parenchymal masses or infiltrates. The pulmonary interstitium appears normal. There are no endobronchial lesions. Cardiomediastinal structures: There is no CT evidence of acute pulmonary embolic disease. The heart is normal in size. There is no pericardial effusion. There is no evidence of aortic aneurysm or dissection. There is no mediastinal or hilar adenopathy. The esophagus appears normal. Pleura : There are no pleural-based masses or effusions. Other: None. IMPRESSION: NO CT OF HIS OF ACUTE PULMONARY EMBOLIC DISEASE. LUNGS CLEAR.
== END 2017-07-11 02:56 | disposition home or self-care (01) ==
LOC: ED 19:01
DX: R07.9 Chest pain, unspecified (principal)
CPT/HCPCS: 36415; 71275; 80053; 84484; 85025; 85379; 93005; 96372; 96374; 99283; A9270-GY; J1885; Q9967

== ENCOUNTER 2017-08-21 11:22 | Emergency (ER) | payer OTHER ==
--- NOTE | 2017-08-21 13:00 | ED ---
Throat Pain/Nasal Congestion - HPI Summary HPI Summary: 27F presents with sore throat since last night. She states she has a productive cough. She denies any fatigue, abdominal pain, chest pain, SOB, n/v. She admits to fever, sinus congestion and ear pain. She denies any post nasal drip. Has history of asthma but has not had to increase inhaler usage. She denies any one else being sick. She has been taking Tylenol for her fever. She has had strept before but not mono. - History of Current Complaint Chief Complaint: EDThroatPain Time Seen by Provider: 08/21/17 11:49 - Allergies/Home Medications Allergies/Adverse Reactions: Allergies Allergy/AdvReac Type Severity Reaction Status Date / Time Pyridoxine [From Beesix] Allergy Intermediate Hives Verified 08/21/17 11:41 Shrimp Flavor Allergy Intermediate swelling Verified 08/21/17 11:41 itching Salamidacetic Acid Allergy swelling,it Verified 08/21/17 11:41 valente Shellfish Allergy Allergy Swelling Verified 08/21/17 11:41 Of Face,Lips,& Throat blueberries Allergy Intermediate sweilling Uncoded 08/21/17 11:41 ,itching SALT WATER SEAFOOD Allergy Swelling Uncoded 08/21/17 11:41 Of Face,Lips,& Throat PMH/Surg Hx/FS Hx/Imm Hx Endocrine/Hematology History: Denies: Hx Diabetes Cardiovascular History: Denies: Hx Hypertension Respiratory History: Reports: Hx Asthma Denies: Hx Chronic Obstructive Pulmonary Disease (COPD) GI History: Comment Only: Other GI Disorders - pt obese, 5 4" and 250 lbs. History: Denies: Hx Renal Disease - Immunization History Date of Tetanus Vaccine: unk Date of Influenza Vaccine: utd Infectious Disease History: No Infectious Disease History: Denies: History Other Infectious Disease, Traveled Outside the [place] in Last 30 Days - Family History Known Family History: Positive: None, Diabetes - Mother Negative: Cardiac Disease, Hypertension - Social History Alcohol Use: None Hx Substance Use: No Substance Use Type: Reports: None Hx Tobacco Use: No Smoking Status (MU): Never Smoked Tobacco Review of Systems Positive: Fever Positive: Sore Throat, Ear Ache, Nasal Discharge Negative: Chest Pain Positive: Cough. Negative: Shortness Of Breath Negative: Abdominal Pain All Other Systems Reviewed And Are Negative: Yes Physical Exam Triage Information Reviewed: Yes Vital Signs On Initial Exam: Initial Vitals Temp Pulse Resp BP Pulse Ox 98.5 F 90 16 143/78 98 08/21/17 11:30 08/21/17 11:30 08/21/17 11:30 08/21/17 11:30 08/21/17 11:30 Vital Signs Reviewed: Yes Appearance: Positive: Well-Appearing Skin: Positive: Warm, Dry Head/Face: Positive: Normal Head/Face Inspection Eyes: Positive: Normal, EOMI, MAEGAN, Conjunctiva Clear ENT: Positive: Pharyngeal erythema, TMs normal, Other - uvula midline, soft palate symmetric. Negative: Tonsillar swelling, Tonsillar exudate, Trismus, Muffled/hoarse voice Neck: Positive: Supple, Nontender, No Lymphadenopathy Respiratory/Lung Sounds: Positive: Clear to Auscultation, Breath Sounds Present Cardiovascular: Positive: Normal, RRR Abdomen Description: Positive: Nontender, Soft Bowel Sounds: Positive: Present - April Coma Scale Coma Scale Total: 15 Diagnostics - Vital Signs Vital Signs Temp Pulse Resp BP Pulse Ox 08/21/17 11:30 98.5 F 90 16 143/78 98 - Laboratory Lab Results: Lab Results 08/21/17 Range/Units 12:03 Group A Strep Rapid Negative (Negative) Lab Statement: Any lab studies that have been ordered have been reviewed, and results considered in the medical decision making process. EENT Course/Dx - Course Course Of Treatment: 27F presents with sore throat since last night. She states she has a productive cough. She denies any fatigue, abdominal pain, chest pain, SOB, n/v. She admits to fever, sinus congestion and ear pain. She denies any post nasal drip. Has history of asthma but has not had to increase inhaler usage. She denies any one else being sick. She has been taking Tylenol for her fever. She has had strept before but not mono. on exam has throat erythema, tonsils not swollen, uvula midline, soft palate symmetric. strept neg. will be placed on magic mouth wash. patient understands and agrees with plan. - Differential Diagnoses Differential Diagnoses: Pharyngitis, Tonsilitis, URI/Bronchitis - Diagnoses Provider Diagnoses: Pharyngitis Discharge - Discharge Plan Condition: Good Disposition: HOME Prescriptions: Magic Mouth Was-CASS/MAAL/LIDO* 5 ml SWISH SPIT QID #100 ml Patient Education Materials: Pharyngitis (ED) Forms: *Work Release Referrals: Yani Banks NP [Primary Care Provider] - Additional Instructions: Magic mouthwash 5ml swish and spit can use 4x a day Take Tylenol or ibuprofen for pain every 6 hours Use saline spray in nose as much as needed Use humidifier in room or can use warm water in bowls Can gargle salt water Can use cough drops or products such as cloraseptic spray follow up with primary care within 7 days Return to ED if develop fever does not respond to Tylenol or ibuprofen, inability to swallow, or any new or worsening symptoms
[2017-08-21 13:21] VITALS: BP 138/74
== END 2017-08-21 13:20 | disposition home or self-care (01) ==
LOC: ED 11:22
DX: J02.9 Acute pharyngitis, unspecified (principal); J45.909 Unspecified asthma, uncomplicated
CPT/HCPCS: 87651; 99282

== ENCOUNTER 2017-09-11 11:43 | Emergency (ER) | payer OTHER ==
[2017-09-11] MEDS ORDERED: Naproxen TAB* 250 MG PO ONE (13:19)
--- NOTE | 2017-09-11 14:13 | RAD ---
Indication: Left lower leg pain Comparison: None. Technique: AP and lateral views left lower leg. Report: The visualized bones are adequately corticated and well aligned. There is no acute fracture, dislocation or other focal abnormality. The soft tissues appear grossly normal. IMPRESSION: Normal left lower leg radiograph. If the patient's symptoms persist, follow-up imaging is recommended.
--- NOTE | 2017-09-11 14:16 | RAD ---
INDICATION: Trauma. COMPARISON: Similar examination April 17, 2017 TECHNIQUE: 3 views of the left ankle were obtained. FINDINGS: The well corticated bones exhibit normal alignment. Joint spaces appear maintained. No fracture is seen. IMPRESSION: Normal ankle radiograph. If the patient's symptoms persist, follow-up imaging is recommended.
--- NOTE | 2017-09-11 14:32 | ED ---
Enriqueta Thompson Rebecca, scribed for Barbara Mensah MD on 09/11/17 at 1306 . Lower Extremity - HPI Summary HPI Summary: Pt is a 27 y/o F who presents to ED c/o LLE pain. 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 She was seen a few weeks ago by her PCP and has scheduled an appointment with Dr. Guerrero on the . Pain became worse today after twisting the L ankle. Pain is currently moderate, ranked 6/10 and focused primarily on the L ankle with some lower leg involvement. 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 Sx aggravated by movement, alleviated by nothing. - History of Current Complaint Chief Complaint: EDExtremityLower Stated Complaint: LT LEG PAIN Time Seen by Provider: 09/11/17 12:29 Hx Obtained From: Patient Hx Last Menstrual Period: 06/08/15 Mechanism Of Injury: Twisted Onset/Duration: Still Present Severity Currently: Moderate Pain Intensity: 6 Pain Scale Used: 0-10 Numeric Location: Is Discrete @ - L ankle and lower leg Associated Signs And Symptoms: Positive: Negative Aggravating Factor(s): Movement Alleviating Factor(s): Nothing Able to Bear Weight: Yes - Allergies/Home Medications Allergies/Adverse Reactions: Allergies Allergy/AdvReac Type Severity Reaction Status Date / Time Pyridoxine [From Beesix] Allergy Intermediate Hives Verified 08/21/17 11:41 Shrimp Flavor Allergy Intermediate swelling Verified 08/21/17 11:41 itching Salamidacetic Acid Allergy swelling,it Verified 08/21/17 11:41 valente Shellfish Allergy Allergy Swelling Verified 08/21/17 11:41 Of Face,Lips,& Throat blueberries Allergy Intermediate sweilling Uncoded 08/21/17 11:41 ,itching SALT WATER SEAFOOD Allergy Swelling Uncoded 08/21/17 11:41 Of Face,Lips,& Throat PMH/Surg Hx/FS Hx/Imm Hx Endocrine/Hematology History: Denies: Hx Diabetes Cardiovascular History: Denies: Hx Hypertension Respiratory History: Reports: Hx Asthma Denies: Hx Chronic Obstructive Pulmonary Disease (COPD) GI History: Comment Only: Other GI Disorders - pt obese, 5 4" and 250 lbs. History: Denies: Hx Renal Disease - Immunization History Date of Tetanus Vaccine: unk Date of Influenza Vaccine: utd Infectious Disease History: No Infectious Disease History: Denies: History Other Infectious Disease, Traveled Outside the [place] in Last 30 Days - Family History Known Family History: Positive: Diabetes - Mother, Respiratory Disease - Asthma (mother) Negative: Cardiac Disease, Hypertension - Social History Alcohol Use: None Hx Substance Use: No Substance Use Type: Reports: None Hx Tobacco Use: No Smoking Status (MU): Never Smoked Tobacco Review of Systems Negative: Fever Positive: Arthralgia - L ankle and lower leg pain All Other Systems Reviewed And Are Negative: Yes Physical Exam - Summary Physical Exam Summary: General: Well appearing, no pain distress Skin: Warm, Skin Color Reflects Adequate Perfusion, Dry Eyes: EOMI, MAEGAN ENT: Pharynx normal, TMs normal Neck: Supple, nontender Respiratory: CTA, breath sounds present, no rhonchi, no wheezes, no rales Cardiovascular: RRR, no murmur, no rub, no gallop Abdomen: Soft, nontender, Non-distended, no guarding, no rebound Bowel: Present Musculoskeletal: MELA, No edema, Tenderness over her mid-tibia without any deformity and tenderness over her lateral malleolus on the L side Neuro: Sensory/motor intact, A&Ox3, CN intact 2-12 Psych: Affect/mood appropriate Triage Information Reviewed: Yes Vital Signs On Initial Exam: Initial Vitals Temp Pulse Resp BP Pulse Ox 97.2 F 72 16 141/72 97 09/11/17 11:45 09/11/17 11:45 09/11/17 11:45 09/11/17 11:45 09/11/17 11:45 Vital Signs Reviewed: Yes - [place] Coma Scale Coma Scale Total: 15 Diagnostics - Vital Signs Vital Signs Temp Pulse Resp BP Pulse Ox 09/11/17 11:45 97.2 F 72 16 141/72 97 - Laboratory Lab Statement: Any lab studies that have been ordered have been reviewed, and results considered in the medical decision making process. - Radiology Ankle XR Xray Interpretation: No Acute Changes - Normal ankle radiograph. If the patient 's symptoms persist, follow-up imaging is recommended. ED physician reviewed radiology report and agrees. Radiology Interpretation Completed By: Radiologist Lower Leg XR Xray Interpretation: No Acute Changes - Normal left lower leg radiograph. If the patient's symptoms persist, follow-up imaging is recommended. ED physician reviewed radiology report and agrees. Radiology Interpretation Completed By: Radiologist Lower Extremity Course/Dx - Course Course Of Treatment: 27 yo female with leg and ankle pain that has been there for a long time worse over the last few days after twisting the ankle. xrays neg pt says motrin not working, will change to naprosyn, pt denies any issues with opioid dependence will give low dose and short course of norco with air splint . leg is nvi - Diagnoses Provider Diagnoses: Ankle sprain Discharge - Discharge Plan Condition: Stable Disposition: HOME Prescriptions: HYDROcodone/ACETAMIN 5-325 MG* [Lithia 5-325 TAB*] 1 tab PO Q6H PRN #9 tab MDD 3 PRN Reason: Pain Naproxen [Naprosyn 500 mg] 500 mg PO BID PRN #14 tab PRN Reason: Pain Patient Education Materials: Ankle Sprain (ED) Referrals: Yani Banks RETORT PRESS OPERATOR [Primary Care Provider] - 3 Days The documentation as recorded by the Enriqueta mccoy Rebecca accurately reflects the service I personally performed and the decisions made by , Barbara Mensah MD.
[2017-09-11 15:15] VITALS: BP 135/72
== END 2017-09-11 15:14 | disposition home or self-care (01) ==
LOC: ED 11:43
DX: S93.402A Sprain of unspecified ligament of left ankle, initial encounter (principal); X50.9XXA Other and unspecified overexertion or strenuous movements or postures, initial encounter; Y93.9 Activity, unspecified; Y92.89 Other specified places as the place of occurrence of the external cause
CPT/HCPCS: 99282; A9270-GY

== ENCOUNTER 2017-09-15 09:49 | Emergency (ER) | payer SELFPAY ==
[2017-09-15 10:51] VITALS: BP 127/63
[2017-09-15] MEDS ORDERED: Tetan/Diph/Pertus SYR(Tdap)* 0.5 ML SYR(BOOSTRIX) use SYR IM ONE ×2 (11:39→11:41)
--- NOTE | 2017-09-15 11:51 | UC ---
Laceration HPI - HPI Summary HPI Summary: This is a 27 yo female who presents with c/o thumb laceration sustained last night while washing dishes. She had some trouble controlling the bleeding. Unsure of last tetanus. - History Of Current Complaint Chief Complaint: UCLaceration Stated Complaint: FINGER LAC Hx Last Menstrual Period: 06/08/15 - Allergies/Home Medications Allergies/Adverse Reactions: Allergies Allergy/AdvReac Type Severity Reaction Status Date / Time Pyridoxine [From Beesix] Allergy Intermediate Hives Verified 08/21/17 11:41 Shrimp Flavor Allergy Intermediate swelling Verified 08/21/17 11:41 itching Salamidacetic Acid Allergy swelling,it Verified 08/21/17 11:41 valente Shellfish Allergy Allergy Swelling Verified 08/21/17 11:41 Of Face,Lips,& Throat blueberries Allergy Intermediate sweilling Uncoded 08/21/17 11:41 ,itching SALT WATER SEAFOOD Allergy Swelling Uncoded 08/21/17 11:41 Of Face,Lips,& Throat PMH/Surg Hx/FS Hx/Imm Hx Respiratory History: Asthma - Surgical History Surgical History: None - Family History Known Family History: Positive: Diabetes - Mother, Respiratory Disease - Asthma (mother) Negative: Cardiac Disease, Hypertension - Social History Alcohol Use: None Substance Use Type: None Smoking Status (MU): Never Smoked Tobacco Review of Systems Constitutional: Negative Skin: Other - laceration Eyes: Negative ENT: Negative Respiratory: Negative Cardiovascular: Negative Gastrointestinal: Negative Genitourinary: Negative Motor: Negative Neurovascular: Negative Musculoskeletal: Negative Neurological: Negative Psychological: Negative Is Patient Immunocompromised?: No All Other Systems Reviewed And Are Negative: Yes Physical Exam Triage Information Reviewed: Yes Appearance: Well-Appearing Vital Signs: Initial Vital Signs Temp 97.1 F 09/15/17 10:48 Pulse 80 09/15/17 10:48 Resp 16 09/15/17 10:48 BP 127/63 09/15/17 10:48 Pulse Ox 98 09/15/17 10:48 Vital Signs Reviewed: Yes ENT Exam: Normal Dental Exam: Normal Respiratory Exam: Normal Respiratory: Positive: Lungs clear. Negative: Crackles, Rhonchi, Wheezing Cardiovascular: Positive: RRR, No Murmur Abdominal Exam: Normal Abdomen Description: Positive: Nontender Musculoskeletal Exam: Normal Musculoskeletal: Positive: Strength Intact Neurological Exam: Normal Neurological: Positive: Alert Psychological Exam: Normal Skin: Positive: Other - superficial laceration to the L thumb ~1.5 cm in length on the palmar surface. No bleeding or other drainage. Laceration Repair - Laceration Repair 1 Description: Linear : No Repair Necessary Laceration Size After Repair: Length (cm) - 1.5 Closure Material: SteriStrips Laceration Course/Dx - Course/Dx Course Of Treatment: This is a 27 yo female who sustained a superficial lacertion to the L thumb at work last night. Wound irrigated. Closed with steri strips. Tdap given. - Differential Dx - Laceration/Wound Differental Diagnoses: Cellulitis, Foreign Body, Laceration Provider Diagnoses: 1. Laceration - L thumb Discharge - Discharge Plan Condition: Stable Disposition: HOME Patient Education Materials: Laceration (ED) Referrals: Yani Banks NP [Primary Care Provider] - If Needed Additional Instructions: Instructions: 1. Monitor for signs of infection 2. Keep steristrips in place until they fall off (no need to replace) 3. Keep covered with a Bandaid (change daily) until wound healed
== END 2017-09-15 11:49 | disposition home or self-care (01) ==
LOC: UCEAST 09:49
DX: S61.012A Laceration without foreign body of left thumb without damage to nail, initial encounter (principal); W45.8XXA Other foreign body or object entering through skin, initial encounter; Y93.G1 Activity, food preparation and clean up; Y92.9 Unspecified place or not applicable
CPT/HCPCS: 90715; 99212; G0463

== ENCOUNTER 2017-10-04 16:59 | Emergency (ER) | payer SELFPAY ==
[2017-10-04 17:14] VITALS: BP 151/87
--- NOTE | 2017-10-04 17:19 | UC ---
Dental HPI - HPI Summary HPI Summary: Pt presents with dental pain for 2 days. Has had many dental infections in the past and this feels the same. Pain on the back bottom right and left around teeth #18, 30, and 31. Denies fever, chills, SOB, cough, or ST. - History of Current Complaint Chief Complaint: UCDentalProblem Stated Complaint: TOOTH PAIN Time Seen by Provider: 10/04/17 17:17 Hx Obtained From: Patient Hx Last Menstrual Period: now ?: No Onset/Duration: Gradual Onset Severity: Severe Pain Intensity: 9 Pain Scale Used: 0-10 Numeric Aggravating Factor(s): Nothing Alleviating Factor(s): Nothing - Allergies/Home Medications Allergies/Adverse Reactions: Allergies Allergy/AdvReac Type Severity Reaction Status Date / Time Pyridoxine [From Beesix] Allergy Intermediate Hives Verified 10/04/17 17:15 Shrimp Flavor Allergy Intermediate swelling Verified 10/04/17 17:15 itching Salamidacetic Acid Allergy swelling,it Verified 10/04/17 17:15 valente Shellfish Allergy Allergy Swelling Verified 10/04/17 17:15 Of Face,Lips,& Throat blueberries Allergy Intermediate sweilling Uncoded 10/04/17 17:15 ,itching SALT WATER SEAFOOD Allergy Swelling Uncoded 10/04/17 17:15 Of Face,Lips,& Throat Home Medications: Home Medications Ibuprofen TAB* [Advil TAB*] 400 mg PO Q6HR PRN 10/04/17 [History Confirmed 10/04] PMH/Surg Hx/FS Hx/Imm Hx Previously Healthy: Yes - Surgical History Surgical History: None - Family History Known Family History: Positive: Diabetes - Mother, Respiratory Disease - Asthma (mother) Negative: Cardiac Disease, Hypertension - Social History Occupation: Student Alcohol Use: None Substance Use Type: None Smoking Status (MU): Never Smoked Tobacco Review of Systems Constitutional: Negative Skin: Negative Eyes: Negative ENT: Dental Pain Respiratory: Negative Cardiovascular: Negative All Other Systems Reviewed And Are Negative: Yes Physical Exam Triage Information Reviewed: Yes Appearance: Well-Appearing, Well-Nourished Vital Signs: Initial Vital Signs Temp 97.5 F 10/04/17 17:09 Pulse 66 10/04/17 17:09 Resp 18 10/04/17 17:09 BP 151/87 10/04/17 17:09 Pulse Ox 100 10/04/17 17:09 Vital Signs Reviewed: Yes ENT: Positive: Hearing grossly normal, Pharynx normal, TMs normal, Dental tenderness. Negative: Pharyngeal erythema, Nasal congestion, Nasal drainage, TM bulging, TM dull, TM red, Tonsillar swelling, Tonsillar exudate Dental: Positive: Percussion Tenderness @ - #18, 30, 31., Gross Decay/Caries @ - Most notable at teeth #18, 30, 31., Cellulitis @ - Gum surrounding teeth #31 and 18. Negative: Dental Fracture @, Cervical Lymphadenopathy, Bleeding Neck: Positive: Supple, Nontender, No Lymphadenopathy Respiratory: Positive: Chest non-tender, Lungs clear, Normal breath sounds, No respiratory distress, No accessory muscle use Cardiovascular: Positive: RRR, No Murmur, Pulses Normal Psychological: Positive: Age Appropriate Behavior Skin: Negative: rashes Dental Complaint Course/Dx - Course Course Of Treatment: Dental pain with significant dental caries and cellulitis with ?abscess around teeth 18 and 31. Pen VK and lidocaine rinse. Advised follow up with dentist LIANNE - Differential Dx/Diagnosis Differential Diagnosis/Dx: Dental Abscess, Dental Caries Provider Diagnoses: Dental caries. Dental cellulitis Discharge - Discharge Plan Condition: Stable Disposition: HOME Prescriptions: Lidocaine 2% VISCOUS* [Xylocaine 2% Viscous*] 15 ml SWISH SPIT Q6H PRN #1 btl PRN Reason: Pain Penicillin VK 500 MG TAB(NF) [Penicillin VK 500 mg Tab] 500 mg PO QID #20 tab Patient Education Materials: Dental Abscess (ED) Referrals: Yani Banks NP [Primary Care Provider] - Additional Instructions: 1) Penicillin 500mg four times a day for 5 days 2) Follow up with your dentist as soon as possible for tooth cavities and general follow up. If you develop fever, SOB, chest pain, new or worsening symptoms - please call our office or go to ED. Your blood pressure was high at today's visit - please see your PCP within 4 weeks for recheck and re-evaluation.
== END 2017-10-04 17:35 | disposition home or self-care (01) ==
LOC: UCEAST 16:59
DX: K12.2 Cellulitis and abscess of mouth (principal); K02.9 Dental caries, unspecified; Z88.8 Allergy status to other drugs, medicaments and biological substances
CPT/HCPCS: 99212; G0463

== ENCOUNTER → 2018-08-01 19:29 | Emergency (ER) | payer OTHER ==
[~2018-08-01 19:29] MED LIST: Albuterol 2.5 MG/3 ML NEB.SOL* (0.083%) INH ONE; predniSONE TAB* 10 MG PO ONE
--- OUTSIDE RECORDS SUMMARY | 2018-08-01 20:01 | XMS REPORT ---
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 Cone 34 g/dL 32-36 Redcell Distribution WDTH 13 % 10.5-15 Platelet Count 234 CUMM 150-450 Mean Platelet Volume 7.9 um3 7.4-10.4 45 Thyroid Panel 10/05/2011 Free Thyroxine 0.85 ng/dL 0.61-1.24 Thyroxine 7.2 g/dL 5-12 TSH 3.87 MIU/ML 0.34-5.60 Comp Metabolic Panel 10/05/2011 Sodium 137 mmol/L 135-145 Potassium 3.5 mmol/L 3.5-5.0 Chloride 105 mmol/L 101-111 Co2 (Carbon Dioxide) 27.0 mmol/L 22-32 Anion Gap 5.0 mmol/L 2-11 46 Glucose 75 mg/dL 70-100 BUN 13 mg/dL 6-24 Creatinine 1.0 mg/dL 0.50-1.40 One Over Creatinine 1.00 BUN/Creatinine Ratio 13.0 8-20 Calcium 8.8 mg/dL 8.1-9.9 Total Protein 6.4 GM/DL 6.2-8.1 Albumin 3.5 GM/DL Low 3.6-5.4 Globulin 2.9 GM/DL 2-4 Albumin/Globulin Ratio 1.2 1-3 Bilirubin Total 0.8 mg/dL 0.4-1.5 47 Alkaline Phosphatase 72 U/L 40-122 Alt (SGPT) 12 U/L Low 14-54 Ast (Sgot) 14 U/L 12-42 eGFR Non- 70.7 > 60 eGFR 90.9 > 60 48 Lipid Profile (Trig/Chol/HDL) 10/05/2011 Triglyceride 41 mg/dL 40-200 Cholesterol 166 mg/dL Less Than 200 49 High Density Lipoprotein 69 mg/dL High 40-60 50 Cholesterol/HDL Ratio 2.41 AVERAGE 1-4.44 Low Density Lipoprotein 89 mg/dL Less Than 100 51 1 Because ethnic data is not always readily available, this report includes an eGFR for both -Americans and non- Americans. The National Kidney Disease Education Program (NKDEP) does not endorse the use of the MDRD equation for patients that are not between the ages of 18 and 70, are , have extremes of body size, muscle mass, or nutritional status, or are non- or non-. According to the National Kidney Foundation, irrespective of diagnosis, the stage of the disease is based on the level of kidney function: Stage Description GFR(mL/min/1.73 m(2)) 1 Kidney damage with normal or decreased GFR 90 2 Kidney damage with mild decrease in GFR 60-89 3 Moderate decrease in GFR 30-59 4 Severe decrease in GFR 15-29 5 Kidney failure <15 (or dialysis) 2 [id number] 3 REFERENCE VALUE <4.0 (Negative) Test Performed by: [place] [address] 4 Negative serology. Celiac disease unlikely. However, approximately 10% of patients with celiac disease are seronegative. Also, patients who are already adhering to a gluten-free diet may be seronegative. If celiac disease is highly clinically suspected, consider HLA-DQ typing. Test Performed by: [place] [address] 5 Normal Range 180 to 914 Indeterminate Range 145 to 180 Deficient Range <145 6 [id number] 7 Test Performed by: [place] [address] 8 Because ethnic data is not always readily available, this report includes an eGFR for both -Americans and non- Americans. The National Kidney Disease Education Program (NKDEP) does not endorse the use of the MDRD equation for patients that are not between the ages of 18 and 70, are , have extremes of body size, muscle mass, or nutritional status, or are non- or non-. According to the National Kidney Foundation, irrespective of diagnosis, the stage of the disease is based on the level of kidney function: Stage Description GFR(mL/min/1.73 m(2)) 1 Kidney damage with normal or decreased GFR 90 2 Kidney damage with mild decrease in GFR 60-89 3 Moderate decrease in GFR 30-59 4 Severe decrease in GFR 15-29 5 Kidney failure <15 (or dialysis) 9 [id number] 10 Because ethnic data is not always readily available, this report includes an eGFR for both -Americans and non- Americans. The National Kidney Disease Education Program (NKDEP) does not endorse the use of the MDRD equation for patients that are not between the ages of 18 and 70, are , have extremes of body size, muscle mass, or nutritional status, or are non- or non-. According to the National Kidney Foundation, irrespective of diagnosis, the stage of the disease is based on the level of kidney function: Stage Description GFR(mL/min/1.73 m(2)) 1 Kidney damage with normal or decreased GFR 90 2 Kidney damage with mild decrease in GFR 60-89 3 Moderate decrease in GFR 30-59 4 Severe decrease in GFR 15-29 5 Kidney failure <15 (or dialysis) 11 Desirable: <150 Borderline High: 150-199 High: 200-499 Very High: >500 12 Desirable: <200 Borderline High: 200-239 High: >239 13 Low: <40 Desirable: 40-60 High: >60 14 Desirable: <100 Near Optimal: 100-129 Borderline High: 130-159 High: 160-189 Very High: >189 15 Therapeutic target for the treatment of diabetes mellitus patients is <7% HBA1C, and in selective patients <6.0%. Please refer to [place] [employer] diabetic care guidelines for further information. 16 [id number] 17 [id number] 18 [id number] 19 RESULT: Results suggest past infection. ADDITIONAL INFORMATION In most populations, at least 90% of the adult population will have been infected with EBV sometime in the past and therefore, will be positive for anti-VCA/IgG and anti- EBNA. Antibodies to EBNA develop 6-8 weeks after primary infection and remain present for life. Presence of VCA/ IgM antibodies indicates recent primary infection with EBV. Test Performed by: [facility] [address] [place] [id number] 20 Heel Coverer: [id number] 21 SEE RESULT BELOW Name: TRICIA LANIER : [address]: Joshua Ruiz MD Acct: [id number] Unit: [id number] AGE: 27 Location: ED Re08/21/17 SEX: F Status: REG ER SPEC: [id number] MICHAEL: 08/21/17-11[address] [facility] DR: Caroline LING REQ: [id number] RECD: 08/21/17 STATUS: MARTELL LEIVA DR: [facility] Yani Urban DIRECTOR ADVANCED _ SOURCE: THROAT SPDESC: ORDERED: Strep A Request Procedure Result Reported Site Rapid Strep A Request Final 08/21/17- 1209 ML Specimen received for Rapid Strep A Molecular testing * ML - MAIN LAB ([facility]1) . END OF REPORT * ML=Testing performed at Main Lab DEPARTMENT OF PATHOLOGY, [address] [place] [address] Michael Mariano M.D. Director [facility] # [id number] 22 [facility] Severe Sepsis and Septic Shock Management Bundle Measure requires all lactic acids initially measuring >2.0 mmol/L be repeated. 23 >100 to <200 pg/mL: likely compensated congestive heart failure (CHF) 200 to 400 pg/mL: likely moderate CHF >400 pg/mL: likely moderate to severe CHF 24 Because ethnic data is not always readily available, this report includes an eGFR for both -Americans and non- Americans. The National Kidney Disease Education Program (NKDEP) does not endorse the use of the MDRD equation for patients that are not between the ages of 18 and 70, are , have extremes of body size, muscle mass, or nutritional status, or are non- or non-. According to the National Kidney Foundation, irrespective of diagnosis, the stage of the disease is based on the level of kidney function: Stage Description GFR(mL/min/1.73 m(2)) 1 Kidney damage with normal or decreased GFR 90 2 Kidney damage with mild decrease in GFR 60-89 3 Moderate decrease in GFR 30-59 4 Severe decrease in GFR 15-29 5 Kidney failure <15 (or dialysis) 25 SEE RESULT BELOW Name: TRICIA LANIER : [address]: Ancelmo Meyers DO Acct: [id number] Unit: [id number] AGE: 27 Location: ED Re05/11/17 SEX: F Status: REG ER SPEC: [id number] MICHAEL: 05/11/[address]: Ancelmo Meyers DO REQ: [id number] RECD: 05/11/17 STATUS: MARTELL LEIVA DR: Yani Urban DIRECTOR ADVANCED _ SOURCE: THROAT SPDESC: ORDERED: Strep A Request Procedure Result Reported Site Rapid Strep A Request Final 05/11/17927 ML Specimen received for Rapid Strep A Molecular testing * ML - MAIN LAB ([facility]) . END OF REPORT * ML=Testing performed at Main Lab DEPARTMENT OF PATHOLOGY, [address] [place] [address] Michael Mariano M.D. Director [facility] # [id number] 26 Heel Coverer: [id number] 27 SEE RESULT BELOW Name: TRICIA LANIER : [address]: Ancelmo Meyers DO Acct: [id number] Unit: [id number] AGE: 27 Location: ED Re05/11/17 SEX: F Status: DEP ER SPEC: [id number] MICHAEL: 05/11/[address] [facility] [address]: Ancelmo Meyers DO REQ: [id number] RECD: 05/11/17 STATUS: MARTELL LEIVA DR: Yani Urban DIRECTOR ADVANCED _ SOURCE: BLOOD,VENO SPDESC: ORDERED: Blood Cult Procedure Result Reported Site Aerobic Culture Bottle Final 05/16/17- 0857 ML No Growth Day 5 Anaerobic Culture Bottle Final 05/16/17- 0857 ML No Growth Day 5 * ML - MAIN LAB ([facility]1) . END OF REPORT * ML=Testing performed at Main Lab DEPARTMENT OF PATHOLOGY, [address] [place] [address] Michael Mariano M.D. Director [facility] # [id number] 28 Acute inflammation: >10.00 29 <5.0 Negative 5.0 - 25.0 Indeterminate (Repeat testing recommended after 72 hours) >25.0 Positive Perimenopausal women can display HCG levels of up to 20 mIU/mL 30 Because ethnic data is not always readily available, this report includes an eGFR for both -Americans and non- Americans. The National Kidney Disease Education Program (NKDEP) does not endorse the use of the MDRD equation for patients that are not between the ages of 18 and 70, are , have extremes of body size, muscle mass, or nutritional status, or are non- or non-. According to the National Kidney Foundation, irrespective of diagnosis, the stage of the disease is based on the level of kidney function: Stage Description GFR(mL/min/1.73 m(2)) 1 Kidney damage with normal or decreased GFR 90 2 Kidney damage with mild decrease in GFR 60-89 3 Moderate decrease in GFR 30-59 4 Severe decrease in GFR 15-29 5 Kidney failure <15 (or dialysis) 31 Unable to report test result due to hemolysis. 32 Unable to report test result due to hemolysis. 33 [facility] Severe Sepsis and Septic Shock Management Bundle Measure requires all lactic acids initially measuring >2.0 mmol/L be repeated. 34 Because ethnic data is not always readily available, this report includes an eGFR for both -Americans and non- Americans. The National Kidney Disease Education Program (NKDEP) does not endorse the use of the MDRD equation for patients that are not between the ages of 18 and 70, are , have extremes of body size, muscle mass, or nutritional status, or are non- or non-. According to the National Kidney Foundation, irrespective of diagnosis, the stage of the disease is based on the level of kidney function: Stage Description GFR(mL/min/1.73 m(2)) 1 Kidney damage with normal or decreased GFR 90 2 Kidney damage with mild decrease in GFR 60-89 3 Moderate decrease in GFR 30-59 4 Severe decrease in GFR 15-29 5 Kidney failure <15 (or dialysis) 35 99th percentile=0.04 ng/mL Troponin results at [facility] and [facility] are not interchangeable. 36 Please note: The following may produce a false positive D Dimer test: - Rheumatoid factor greater than 60 IU/ml - Plasma hemoglobin greater than 0.05 gm/dl - Bilirubin greater than 50 mg/dl - Lipids greater than 1000 mg/dl - FDP greater than 20 ug/ml 37 Reference Range and Interpretation: TnI (ng/mL) Interpretation Less Than 0.03 ng/mL Not supportive of diagnosis of DC 0.03 - 0.50 ng/mL Indeterminate: suggest serial studies if clinically indicated. Greater than 0.5 ng/mL Consistent with diagnosis of DC 38 Because ethnic data is not always readily available, this report includes an eGFR for both -Americans and non- Americans. The National Kidney Disease Education Program (NKDEP) does not endorse the use of the MDRD equation for patients that are not between the ages of 18 and 70, are , have extremes of body size, muscle mass, or nutritional status, or are non- or non-. According to the National Kidney Foundation, irrespective of diagnosis, the stage of the disease is based on the level of kidney function: Stage Description GFR(mL/min/1.73 m(2)) 1 Kidney damage with normal or decreased GFR 90 2 Kidney damage with mild decrease in GFR 60-89 3 Moderate decrease in GFR 30-59 4 Severe decrease in GFR 15-29 5 Kidney failure <15 (or dialysis) 39 Because ethnic data is not always readily available, this report includes an eGFR for both -Americans and non- Americans. The National Kidney Disease Education Program (NKDEP) does not endorse the use of the MDRD equation for patients that are not between the ages of 18 and 70, are , have extremes of body size, muscle mass, or nutritional status, or are non- or non-. According to the National Kidney Foundation, irrespective of diagnosis, the stage of the disease is based on the level of kidney function: Stage Description GFR(mL/min/1.73 m(2)) 1 Kidney damage with normal or decreased GFR 90 2 Kidney damage with mild decrease in GFR 60-89 3 Moderate decrease in GFR 30-59 4 Severe decrease in GFR 15-29 5 Kidney failure <15 (or dialysis) 40 Acute inflammation: >10.00 41 <5.0 Negative 5.0 - 25.0 Indeterminate (Repeat testing recommended after 72 hours) >25.0 Positive Perimenopausal women can display HCG levels of up to 20 mIU/mL 42 Normal Range 180 to 914 Indeterminate Range 145 to 180 Deficient Range <145 43 RUN DATE: 04/09/14 [facility] LAB LIVE PAGE 1 RUN TIME: [address] [place] [address] Specimen Inquiry Name: TRICIA LANIER : [address]: Morteza Gamboa MD Acct: [id number] Unit: [id number] AGE: 23 Location: ED Re04/09/14 SEX: F Status: REG ER SPEC: [id number] MICHAEL: 04/09/[address]: Del LING REQ: [id number] RECD: 04/09/14 STATUS: MARTELL LEIVA DR: Morteza Urban DIRECTOR ADVANCED _ SOURCE: THROAT [facility]: ORDERED: Rapid Strep A Procedure Result Verified Site Rapid Strep A Final 04/09/142020 ML Organism 1 Negative Strep Group A Antigen testing by enzyme immunoassay. The animal trainer supervisor and regulatory agencies both recommend that a throat culture for beta strep be performed if a Rapid Group A Strep assay yields a negative result. Therefore a culture will be automatically performed on all negative samples. END OF REPORT * ML=Testing performed at Main Lab DEPARTMENT OF PATHOLOGY, [facility] [employer] [place], [place] [address] Michael Mariano M.D. Director [facility] # [id number] 44 RUN DATE: 04/11/14 [facility] LAB LIVE PAGE 1 RUN TIME: 833 [facility] [employer] [place], [place] [address] Specimen Inquiry Name: TRICIA LANIER : [address]: Morteza Gamboa MD Acct: [id number] Unit: [id number] AGE: 23 Location: ED Re04/09/14 SEX: F Status: DEP ER SPEC: [id number] MICHAEL: 04/09/14-[address]: Del LING REQ: [id number] RECD: 04/09/14 STATUS: MARTELL LEIVA DR: Morteza Urban DIRECTOR ADVANCED _ SOURCE: THROAT SPDESC: ORDERED: Rapid Strep A, Throat Beta Str Procedure Result Verified Site Rapid Strep A Final 04/09/14- 2020 ML Organism 1 Negative Strep Group A Antigen testing by enzyme immunoassay. The animal trainer supervisor and regulatory agencies both recommend that a throat culture for beta strep be performed if a Rapid Group A Strep assay yields a negative result. Therefore a culture will be automatically performed on all negative samples. Throat Beta Strep Culture Final 04/11/14- 833 ML Organism 1 Negative Group A Strep END OF REPORT * ML=Testing performed at Main Lab DEPARTMENT OF PATHOLOGY, [address] [place] [address] Michael Mariano M.D. Director [facility] # [id number] 45 [address] 1 46 Anion gap measurement may be of limited value in the presence of any alkalosis, especially in a combined acid base disorder. . 47 A metabolite of Naproxen, O-desmethylnaproxen, has been shown to interfere with the Jendrassik-Lenny method for measuring total bilirubin. Samples from patients who have taken Naproxen have shown spurious elevation in total bilirubin levels. 48 Because ethnic data is not always readily available, this report includes an eGFR for both -Americans and non- Americans. The National Kidney Disease Education Program (NKDEP) does not endorse the use of the MDRD equation for patients that are not between the ages of 18 and 70, are , have extremes of body size, muscle mass, or nutritional status, or are non- or non-. According to the National Kidney Foundation, irrespective of diagnosis, the stage of the disease is based on the level of kidney function: Stage Description GFR(mL/min/1.73 m(2)) 1 Kidney damage with normal or decreased GFR 90 2 Kidney damage with mild decrease in GFR 60-89 3 Moderate decrease in GFR 30-59 4 Severe decrease in GFR 15-29 5 Kidney failure <15 (or dialysis) 49 CHOLESTEROL INTERPRETATION: Desirable: Less than 200 MG/DL Borderline-High Risk: 200-239 MG/DL High-Risk: 240 MG/DL and over 50 HDL INTERPRETATION: Undesirable: High Risk: Less than 40 MG/DL Desirable: Low Risk: Greater than 60 MG/DL 51 LDL INTERPRETATION: Low Risk Optimal Level: LDL Less than 100 MG/DL Near or Above Optimal: LDL 100-129 MG/DL Borderline High Risk: LDL 130-159 MG/DL High Risk: LDL 160-189 MG/DL Very High Risk: LDL Greater than 189 MG/DL Procedures Date CPT Code Description Status 03/31/2016 84905 Therapeutic,Prophylactic,Or Diagnostic Inj,SC/Im Completed Specify Drug Encounters Type Date Location Provider CPT E/M Dx Office Visit 06/30/2018 9:00a [place] [address] Z12.4 N92.6 Office Visit 06/07/2018 2:30p [place] [address] D64.9 Z30.8 Office Visit 04/07/2018 2:30p [place] [address] D64.9 Office Visit 12/13/2017 8:00a [place] [address] Z00.00 K30 Z23 Office Visit 09/07/2017 1:30p [place] [address] M25.572 Z23 Office Visit 05/13/2017 11:30a [place] [address] J02.9 Office Visit 04/09/2016 10:45a Main Office MARGOTH Robles-C 58288 A09 Office Visit 03/31/2016 3:00p Main Office Yani Barbosadavonte [facility] [address] R53.83 R51 Office Visit 01/24/2016 2:15p Main Office [facility] [address] H66.92 Office Visit 12/31/2014 11:00a Main Office Yanicuco Urban [facility]C [address] 704.01 Office Visit 08/07/2013 11:15a Main Office Yani Urban [facility] [address] 848.9 848.9 V04.81 Office Visit 12/08/2011 10:00a Main Office Yani Darren [facility] 39008 278.00 Office Visit 10/05/2011 8:00a Main Office Yani Darren [facility] [address]894 V70.0 278.01 995.3 V04.81 Office Visit 09/28/2011 2:15p Main Office Yani Urban [facility] [address]808 691.8 Plan of Care Future Appointment(s):07/28/2018 11:00 am - Julieta Morris NP at Main Office
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
--- NOTE | 2018-08-01 23:01 | ED ---
Respiratory - HPI Summary HPI Summary: 28 y/o female presents to the ED c/o difficulty breathing starting 2 days ago. Sx c/o SOB tonight while sitting down in her room; dyspnea at rest. Associated sx: wheezing (resolved spontaneously), cough, chest tightness currently. PMHx asthma. 2x inhaler treatment today. Sx not alleviated by anything. - History of Current Complaint Chief Complaint: EDUpperRespComplaint Stated Complaint: DIFFICULTY BREATHING Time Seen by Provider: 08/01/18 22:55 Hx Obtained From: Patient Onset/Duration: Lasting Hours, Still Present Pain Intensity: 2 Character: Wheezing, Cough (Productive), Dyspnea at Rest Alleviating Factor(s): Nothing Associated Signs and Symptoms: SOB, Chest Pain - tightness - Allergy/Home Medications Allergies/Adverse Reactions: Allergies Allergy/AdvReac Type Severity Reaction Status Date / Time MS Pyridoxine [From Beesix] Allergy Intermediate Hives Verified 08/01/18 19:38 MS Salamidacetic Acid Allergy swelling,it Verified 08/01/18 19:38 [Salamidacetic Acid] valente pantoprazole [From Protonix] Allergy Anaphylatic Verified 08/01/18 19:38 Shock shellfish derived Allergy Swelling Verified 08/01/18 19:38 Of Face,Lips,& Throat shrimp AdvReac Intermediate Itching Verified 08/01/18 19:38 blueberries Allergy Intermediate sweilling Uncoded 08/01/18 19:38 ,itching SALT WATER SEAFOOD Allergy Swelling Uncoded 08/01/18 19:38 Of Face,Lips,& Throat PMH/Surg Hx/FS Hx/Imm Hx Previously Healthy: No Endocrine/Hematology History: Denies: Hx Diabetes, Hx Thyroid Disease Cardiovascular History: Denies: Hx Hypertension, Hx Pacemaker/ICD Respiratory History: Reports: Hx Asthma Denies: Hx Chronic Obstructive Pulmonary Disease (COPD) GI History: Denies: Hx Ulcer Comment Only: Other GI Disorders - pt obese, 5 4" and 250 lbs. History: Denies: Hx Renal Disease Sensory History: Denies: Hx Hearing Aid Psychiatric History: Denies: Hx Panic Disorder - Immunization History Date of Tetanus Vaccine: unk Date of Influenza Vaccine: utd Infectious Disease History: No Infectious Disease History: Denies: Hx Clostridium Difficile, Hx Hepatitis, Hx Human Immunodeficiency Virus (HIV), Hx of Known/Suspected MRSA, Hx Shingles, Hx Tuberculosis, Hx Known/ Suspected VRE, Hx Known/Suspected VRSA, History Other Infectious Disease, Traveled Outside the [place] in Last 30 Days - Family History Known Family History: Positive: Diabetes - Mother, Respiratory Disease - Asthma (mother) Negative: Cardiac Disease, Hypertension - Social History Alcohol Use: None Hx Substance Use: No Substance Use Type: Reports: None Hx Tobacco Use: No Smoking Status (MU): Never Smoked Tobacco Review of Systems Negative: Fever, Chills Negative: Erythema Negative: Sore Throat Negative: Chest Pain Positive: Shortness Of Breath, Cough, Other - wheezing Negative: Abdominal Pain, Vomiting, Nausea Negative: dysuria, hematuria Negative: Myalgia, Edema Negative: Rash Neurological: Other - no dizziness All Other Systems Reviewed And Are Negative: Yes Physical Exam - Summary Physical Exam Summary: Constitutional: Well-developed, Well-nourished, Alert. (-) Distressed Skin: Warm, Dry HENT: Normocephalic; Atraumatic Eyes: Conjunctiva normal Neck: Musculoskeletal ROM normal neck. (-) JVD, (-) Stridor, (-) Tracheal deviation Cardio: Rhythm regular, rate normal, Heart sounds normal; Intact distal pulses; The pedal pulses are 2+ and symmetric. Radial pulses are 2+ and symmetric. (-) Murmur Pulmonary/Chest wall: Effort normal. (-) Respiratory distress, (+) Wheezes, (-) Rales Abd: Soft, (-) epigastric tenderness, (-) Distension, (-) Guarding, (-) Rebound Musculoskeletal: (-) Edema Lymph: (-) Cervical adenopathy Neuro: Alert, Oriented x3 Psych: Mood and affect Normal Triage Information Reviewed: Yes Vital Signs On Initial Exam: Initial Vitals Temp Pulse Resp BP Pulse Ox 97.7 F 80 20 175/87 98 08/01/18 19:31 08/01/18 19:31 08/01/18 19:31 08/01/18 19:31 08/01/18 19:31 Vital Signs Reviewed: Yes Diagnostics - Vital Signs Vital Signs Temp Pulse Resp BP Pulse Ox 08/01/18 21:20 98.0 F 74 20 162/86 100 08/01/18 19:31 97.7 F 80 20 175/87 98 - Laboratory Lab Statement: Any lab studies that have been ordered have been reviewed, and results considered in the medical decision making process. - Radiology CXR Xray Interpretation: No Acute Changes Radiology Interpretation Completed By: ED Physician Re-Evaluation - Re-Evaluation 1 Re-Evaluation Time: 00:05 Change: Improved Comment: Improved, wheezes resolved Disposition - Course Assessment/Plan: XR Negative. Breathing treatment given in ED course. Pt will be d/c home f/u PCP. - Diagnoses Provider Diagnoses: Bronchitis Discharge - Sign-Out/Discharge Documenting (check all that apply): Patient Departure - Discharge Plan Condition: Stable Disposition: HOME Prescriptions: Albuterol 2.5MG/3ML (0.083%)* [Ventolin 2.5 MG/3 ML NEB.TELLY*] 2.5 mg INH Q4H # 60 neb.telly predniSONE TAB* [Deltasone 20 MG TAB*] 20 mg PO DAILY #5 tab Patient Education Materials: Acute Bronchitis (ED) Referrals: Yani Banks, PRINCIPAL ACCOUNT CLERK [Primary Care Provider] - 3 Days (PLEASE F/U IN 2-3 DAYS) Additional Instructions: RETURN TO THE ED FOR WORSENING SYMPTOMS - Attestation Statements Document Initiated by Scribe: Yes Documenting Scribe: José Miguel Stanton Provider For Whom Scribe is Documenting (Include Credential): Juaquin Hughes MD Scribe Attestation: José Miguel Thompson, scribed for Juaquin Hughes MD on 08/02/18 at 0001.
[2018-08-02 00:12] VITALS: BP 160/95
--- NOTE | 2018-08-02 07:56 | RAD ---
HISTORY: cough, SOB COMPARISONS: July 08, 2017 VIEWS: 4: Frontal dual-energy and lateral views of the chest. FINDINGS: CARDIOMEDIASTINAL SILHOUETTE: The cardiomediastinal silhouette is normal. CLARIBEL: The claribel are normal. PLEURA: The costophrenic angles are sharp. No pleural abnormalities are noted. LUNG PARENCHYMA: The lungs are clear. ABDOMEN: The upper abdomen is clear. There is no subphrenic gas. BONES AND SOFT TISSUES: No bone or soft tissue abnormalities are noted. OTHER: None. IMPRESSION: NO ACTIVE CARDIOPULMONARY DISEASE. R0
== END | disposition home or self-care (01) ==
LOC: ED 19:29
DX: J40 Bronchitis, not specified as acute or chronic (principal); Z88.8 Allergy status to other drugs, medicaments and biological substances
CPT/HCPCS: 71046; 99282; J7512

== ENCOUNTER 2018-08-28 08:45 | Emergency (ER) | payer OTHER ==
--- OUTSIDE RECORDS SUMMARY | 2018-08-28 08:58 | XMS REPORT | Continuity of Care Document ---
:1990 External Reference #:[id number] Author Name Melanie Nayak M.D. Address [address] [place] [address] Care Team Providers Name Role Phone Julieta Morris NP Care Team Information Medical Service Technician Unavailable Payers Type Date Identification Numbers Payment Provider Subscriber Effective: Policy Number: [id number] [facility] Tricia Hrarison Italo 2011 Med PayID: [id number] [place] [address] Onset: 2013 Policy Number: [id number] [facility] Insurance [facility] Tricia Lanier PayID: [id number] [place] [address] Advance Directives Description No Information Available Problems Description No Information Family History Description No Information Available Social History Type Date Description Comments Sex Unknown Lives With sister, niece, brother Lives With Mother And Father Smoke-Free Home is smoke-free Occupation Unemployed ETOH Use Never used alcohol Tobacco Use Start: Unknown Patient has never smoked Recreational Drug Use Never Used Drugs Smoking Status Reviewed: 12/13/17 Patient has never smoked Seat Belt/Car Seat always uses seat belt Currently Active Patient is currently not sexually active Allergies, Adverse Reactions, Alerts Description No Known Drug Allergies Medications Medication Date Status Form Strength Qnty SIG Indications Ordering Provider Acetaminophen- 08/27/ Active Tablets 300-30mg 10tabs 1-2 PO QHS K12.2 Melanie Codeine #3 2018 prn Dental P. Pain Blegen, MTaylorDTaylor Ranitidine HCL 08/27/ Active Tablets 150mg 60tabs take 1 R12 Melanie Jenkins tablet by P. mouth twice Blegen, a day for M.D. 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 and diarrhea Ventolin HFA 05/08/ Active Aerosol 108(90Base 18unit inhale two [facility] 2011 ) mcg/Act s puffs by Shortle, mouth every INSPECTOR TUBES 4 to 6 hours as needed for wheezing/ti ghtness Singulair 10/05/ Active Tablets 10mg 30tabs take one Julieta 2010 tablet by Arturo, mouth at INSPECTOR TUBES bedtime daily Zyrtec Allergy 09/28/ Active Tablets 10mg 30tabs Take 1 691.8 Yani 2010 tablet po Darren, daily OIL FIELD TESTER-C Ketorolac 03/31/ Hx Tablets 10mg 15tabs 1 tablet R51 Yani Tromethamine 2015 - every 4-6 Darren, 06/07/ hours no OIL FIELD TESTER-C 2018 more than 4 tabs/day Amoxicillin/Cl 01/23/ Hx Tablets 875-125mg 20tabs 1 tablet H66.92 Yani avulanate 2015 - twice a day Darren Potassium 03/31/ x 10 days OIL FIELD TESTER-C 2015 Antipyrine-Kevin 01/23/ Hx Solution 5.4-1.4% 10ml 2-4 gtts in H66.92 Yani zocaine 2015 - the left Darren, 03/31/ ear then OIL FIELD TESTER-C [address] a cotton ball. May repeat every 4 hours Benzonatate 01/23/ Hx Capsules 200mg 30caps take 1 H66.92 Yani 2015 - capsule by Darren, 03/31/ mouth 3 OIL FIELD TESTER-C 2016 times a day as needed for cough Ondansetron 01/23/ Hx Tablets 4mg 10tabs dissolve 1 Shawnti 2015 - Dispers tab by Mel Summers, 06/07/ mouth three OIL FIELD TESTER-C 2018 times a day as needed nausea Norgestim-Eth 12/31/ Hx Tablets 0.18/0.215 28tabs 1 tab by Yani Ashton 2014 - /0.25 mouth every Darren, Triphasic 06/07/ mg-35 mcg day at the [facility] 2017 same time Norgestimate/E 08/07/ Hx Tablets 0.18/0.215 30tabs 1 tab po qd Yani thinyl 2012 - /0.25 at the same [facility], Estradiol 12/31/ mg-35 mcg time [facility] 2014 Trinessa 06/07/ Hx Tablets 0.18/0.215 28tabs Take 1 691.8 Yani 2012 - /0.25 Tablet By Darren, 08/07/ mg-35 mcg Mouth AT [facility] 2012 The Same Time Every Day Trinessa 09/28/ Hx Tablets 0.18/0.215 1pack take 1 691.8 Yani 2010 - /0.25 mg-3 tablet at [facility], 06/07/ the same [facility] 2012 time every day Albuterol HFA 00// Hx 90mcg/Inh 1Inhal 2 puffs Yani 0000 - er q4-6 hours [facility], 05/08/ prn [facility] 2011 wheezing Medications Administered in Office Medication Date Status Form Strength Qnty SIG Indications Ordering Provider Injection Administered Injection Yani Ketorolac 016 [facility] Tromethamine [facility] Per 15 MG (Toradol) Immunizations CPT Code Status Date Vaccine Lot # [id number] Given 08/27/2018 Influenza Virus Vaccine, Quadrivalent, 3 Yr > [id number] Quad, Preserv Free 55501 Given 12/13/2017 Tdap (Adacel) [id number] 61042 Given 12/03/2017 Influenza Virus Vaccine, Quadrivalent, 3 Yr > [id number] Quad, Preserv Free 84377 Given 09/07/2017 Influenza Virus Vaccine, Quadrivalent, 3 Yr > [id number] Quad, Preserv Free 08211 Given 08/07/2013 Influenza Vaccine-Preservative Free 3 Yrs And Above 66930 Given 08/07/2013 Influenza Vaccine-Preservative Free 3 Yrs And [id number] Above 37381 Given 09/23/2012 Influenza Vaccine-Preservative Free 3 Yrs And [id number] Above 06644 Given 10/05/2011 Influenza Vaccine-Preservative Free 3 Yrs And [id number] Above Vital Signs Date Vital Result Comment 08/27/2018 9:55am Weight 299.00 lb Weight 135.626 kg BP Systolic 159 mmHg BP Diastolic 90 mmHg Heart Rate 92 /min Body Temperature 97.6 F 07/28/2018 10:54am Weight 293.00 lb Weight 132.905 kg BP Systolic 138 mmHg BP Diastolic 80 mmHg Heart Rate 78 /min Body Temperature 98.0 F Respiratory Rate 16 /min Height 65 inches 5'5" BMI (Body Mass Index) 48.8 kg/m2 O2 % BldC Oximetry 96 % 06/30/2018 8:50am Weight 293.00 lb Weight 132.905 kg BP Systolic 128 mmHg BP Diastolic 74 mmHg Heart Rate 78 /min Body Temperature 98.2 F Respiratory Rate 16 /min O2 % BldC Oximetry 97 % 06/07/2018 1:58pm Weight 296.00 lb Weight 134.266 kg BP Systolic 130 mmHg BP Diastolic 90 mmHg Heart Rate 76 /min Body Temperature 98.2 F Respiratory Rate 16 /min O2 % BldC Oximetry 98 % 04/07/2018 2:41pm Weight 303.00 lb Weight 137.441 kg BP Systolic 128 mmHg BP Diastolic 86 mmHg Heart Rate 79 /min Body Temperature 98.1 F Respiratory Rate 17 /min O2 % BldC Oximetry 97 % 12/13/2017 8:02am Weight 286.00 lb Weight 129.730 kg BP Systolic 120 mmHg BP Diastolic 78 mmHg Heart Rate 78 /min Body Temperature 97.5 F Respiratory Rate 16 /min Height 65 inches 5'5" BMI (Body Mass Index) 47.6 kg/m2 O2 % BldC Oximetry 98 % 09/07/2017 1:41pm Weight 288.00 lb Weight 130.637 kg BP Systolic 120 mmHg BP Diastolic 82 mmHg Heart Rate 76 /min Body Temperature 97.1 F 05/13/2017 11:43am Weight 292.00 lb Weight 132.451 kg BP Systolic 122 mmHg BP Diastolic 80 mmHg Heart Rate 84 /min Body Temperature 98.1 F Respiratory Rate 16 /min Height 65 inches 5'5" BMI (Body Mass Index) 48.6 kg/m2 O2 % BldC Oximetry 96 % 04/09/2016 10:50am Weight 286.00 lb Weight 129.730 kg BP Systolic 116 mmHg BP Diastolic 60 mmHg Heart Rate 64 /min Body Temperature 97.8 F 03/31/2016 2:44pm Weight 288.00 lb Weight 130.637 kg BP Systolic 150 mmHg BP Diastolic 90 mmHg Heart Rate 110 /min Body Temperature 98.8 F O2 % BldC Oximetry 96 % 01/24/2016 1:58pm Weight 292.00 lb Weight 132.451 kg BP Systolic 138 mmHg BP Diastolic 90 mmHg Heart Rate 86 /min Body Temperature 98.7 F Height 65.5 inches 5'5.50" BMI (Body Mass Index) 47.8 kg/m2 O2 % BldC Oximetry 96 % 12/31/2014 11:03am Weight 281.00 lb Weight 127.462 kg BP Systolic 130 mmHg BP Diastolic 84 mmHg Heart Rate 72 /min 08/07/2013 11:28am Weight 268.00 lb Weight 121.565 kg BP Systolic 152 mmHg BP Diastolic 92 mmHg Heart Rate 80 /min Body Temperature 98.3 F Height 65.5 inches 5'5.50" BMI (Body Mass Index) 43.9 kg/m2 12/08/2011 10:01am Weight 241.00 lb Weight 109.318 kg BP Systolic 128 mmHg BP Diastolic 80 mmHg Heart Rate 86 /min 10/05/2011 8:04am Weight 246.00 lb Weight 111.586 kg BP Systolic 130 mmHg BP Diastolic 80 mmHg Heart Rate 76 /min Height 65.75 inches 5'5.75" BMI (Body Mass Index) 40.0 kg/m2 Last Menstrual Period [id number] 09/28/2011 2:17pm Weight 244.00 lb Weight 110.678 kg BP Systolic 142 mmHg BP Diastolic 80 mmHg Heart Rate 80 /min Body Temperature 98.1 F Height 64.5 inches 5'4.50" BMI (Body Mass Index) 41.2 kg/m2 Results Test Date Facility Test Result H/L Range Note Laboratory test 07/28/2018 [facility] Cytology SEE RESULT 1 finding [phone] BELOW CBC Auto Diff 06/07/2018 [facility] White Blood 7.6 10^3/uL 3.5-10.8 [phone] Count Red Blood Count 4.46 10^6/uL 4.00-5.40 Hemoglobin [...] Cells % 0 Comp Metabolic Panel 06/07/2018 [facility] Sodium 142 mmol/L 135-145 [phone] Potassium 4.1 mmol/L 3.5-5.0 Chloride 105 mmol/L [...] Egfr Non- 65.0 >60 Egfr 78.7 >60 2 Iron & Iron 06/07/2018 [facility] Unsaturated Iron 322 g/dL Binding Capacity [phone] Binding Total Iron Binding Capacity 350 g/dL 250-450 Transferrin 250 mg/dL 203-362 % Iron Saturation 8 % Low 15-55 Laboratory test 06/07/2018 [facility] Iron 28 g/dL Low 50-212 finding [phone] Ferritin 29.0 ng/mL 11-307 3 Celiac Panel 04/07/2018 [facility] Tissue Transglutaminase <1.2 U/mL 4 [phone] IgA Ab Immunoglobulin A 164 mg/dL 61 - 356 Celiac Interpretation See Comment 5 Laboratory test 04/07/2018 [facility] Vitamin B12 286 pg/mL [phone] 6 finding [phone] Folic Acid (Folate) > 20.00 ng/mL >3.99 7 Haptoglobin 187 mg/dL 30 - 200 8 Retic Count 04/07/2018 [facility] Retic Count 2.0 % High 0.5-1.5 [phone] Corrected Retic Count 1.5 % 0.5-1.5 Maturation Factor Retic 1.5 Retic Index 1.00 Mean Retic Volume 95.9 Immature Retic Fraction 0.34 RBC Retic Count 4.40 10^6/uL Low 4.6-6.2 Hematocrit for Retic CNT 34 % Low 35-47 CBC Auto Diff 03/24/2018 [facility] White Blood 6.4 10^3/uL 3.5-10.8 [phone] Count Red Blood Count 4.35 10^6/uL 4.0-5.4 Hemoglobin [...] Cells % 0.1 Comp Metabolic Panel 03/24/2018 [facility] Sodium 140 mmol/L 139-145 [phone] Potassium 3.9 mmol/L 3.5-5.0 Chloride 106 mmol/L [...] Egfr Non- 64.1 >60 Egfr 82.4 >60 9 Iron & Iron 03/24/2018 [facility] Unsaturated Iron 338 g/dL Binding Capacity [phone] Binding Total Iron Binding Capacity 367 g/dL 250-450 Transferrin 262 mg/dL 203-362 % Iron Saturation 8 % Low 15-55 Laboratory test 03/24/2018 [facility] Iron 29 g/dL Low 50-212 finding [phone] Ferritin 21.6 ng/mL 11-307 10 CBC Auto Diff 12/13/2017 [facility] White Blood 6.2 10^3/uL 3.5-10.8 [phone] Count Red Blood Count 4.45 10^6/uL 4.0-5.4 Hemoglobin [...] Cells % 0.1 Comp Metabolic Panel 12/13/2017 [facility] Sodium 139 mmol/L 133-145 [phone] Potassium 3.5 mmol/L 3.5-5.0 Chloride 105 mmol/L [...] Egfr Non- 67.0 >60 Egfr 86.2 >60 11 Lipid Profile 12/13/2017 [facility] Triglycerides 77 mg/dL 12 (Trig/Chol/HDL) [phone] Cholesterol 163 mg/dL 13 HDL Cholesterol 50.6 mg/dL 14 LDL Cholesterol 97 mg/dL 15 Laboratory test 12/13/2017 [facility] Hemoglobin A1c 5.3 % 4.0-5.6 16 finding [phone] (Glyco HGB) TSH (Thyroid Stim Horm) 2.18 mcIU/mL 0.34-5.60 17 Iron & Iron Binding 12/13/2017 [facility] Iron 43 g /dL Low 50-212 Capacity [phone] Unsaturated Iron Binding 313 g/dL Total Iron Binding Capacity 356 g/dL 250-450 % Iron Saturation 12 % Low 15-55 Laboratory test 12/13/2017 [facility] Ferritin 23.4 ng/mL 11-307 18 finding [phone] Laboratory test 08/26/2017 [facility] Monospot Negative Negative 19 finding [phone] Osiel Cordero 08/26/2017 [facility] Ebv Capsid Positive Negative Comprehensive [phone] Ag IgG Ab Ebv Capsid Ag IgM Ab Negative Negative Osiel-Cordero Nuclear Antigen Positive Negative Osiel-Cordero Virus Interp See Comment 20 Laboratory test 08/21/2017 [facility] Rapid Strep Negative Negative 21 finding [phone] Molecular Laboratory test 08/21/2017 [facility] Rapid Strep A SEE RESULT 22 finding [phone] BELOW Laboratory test 07/08/2017 [facility] Lactic Acid 0.7 mmol/L 0.5-2.0 23 finding [phone] CBC Auto Diff 07/08/2017 [facility] White Blood 6.9 10^3/uL 3.5-10.8 [phone] Count Red Blood Count 4.54 10^6/uL 4.0-5.4 Hemoglobin [...] Red Blood Cells % 0.1 Laboratory test 07/08/2017 [facility] B-Type 29 pg/ mL 24 finding [phone] Natriuretic Peptide BNP Comp Metabolic 07/08/2017 [facility] Sodium 138 mmol/ L 133-1 Panel [phone] 45 Chloride 108 mmol/L 101-111 Co2 Carbon Dioxide [...] Egfr Non- 68.6 >60 Egfr 88.2 >60 25 Potassium 3.9 mmol/L 3.5-5.0 Anion Gap 5 mmol/L 2-11 Ast 13 U/L 13-39 Laboratory test 07/08/2017 [facility] Creatine Kinase 69 U/L 10-223 finding [phone] Troponin-I (TnI) 0.00 ng/mL <0.04 CKMB 07/08/2017 [facility] CKMB ng/mL 0.8 ng/mL 0.6-6.3 [phone] Laboratory test 07/08/2017 [facility] TSH (Thyroid 3.58 0.34-5.60 finding [phone] Stimulating mcIU/mL Horm) Magnesium 1.9 mg/dL 1.9-2.7 Laboratory test 05/11/2017 [facility] Rapid Strep A SEE RESULT 26 finding [phone] BELOW Laboratory test 05/11/2017 [facility] Rapid Strep Negative Negative 27 finding [phone] Molecular Laboratory test 05/11/2017 [facility] Blood Culture SEE RESULT 28 finding [phone] BELOW Urinalysis 05/11/2017 [facility] Urine Color Yellow Profile [phone] Urine Appearance Clear Urine Specific [place] 1.016 1.010-1.030 Urine pH 5.0 5-9 Urine Urobilinogen Negative Negative Urine Ketones Negative Negative Urine Protein Negative Negative Urine Leukocytes Negative Negative Urine Blood Negative Negative Urine Nitrite Negative Negative Urine Bilirubin Negative Negative Urine Glucose Negative Negative Laboratory test 05/11/2017 [facility] Lipase 18 U/L 11.0-82.0 finding [phone] Creatine Kinase 74 U/L 10-223 C Reactive Protein 64.02 mg/L High < 5.00 29 HCG < 0.60 mIU/mL 30 Comp Metabolic Panel 05/11/2017 [facility] Sodium 136 mmol/L 133-145 [phone] Chloride 105 mmol/L 101-111 Co2 Carbon Dioxide [...] Egfr Non- 67.8 >60 Egfr 87.2 >60 31 Potassium TNP mmol/L 3.5-5.0 32 Anion Gap 8 mmol/L 2-11 Ast TNP U/L 13-39 33 Laboratory test 05/11/2017 [facility] Monospot Negative Negative finding [phone] Troponin-I (TnI) 0.00 ng/mL <0.04 CBC Auto 05/11/2017 [facility] White Blood 12.7 10^3/ uL High 3.5-10.8 Diff [phone] Count Red Blood Count 3.79 10^6/uL Low 4.0-5.4 [...] Red Blood Cells % 0 Laboratory test 05/11/2017 [facility] Lactic Acid 1.0 mmol/L 0.5-2.0 34 finding [phone] CBC Auto Diff 01/06/2017 [facility] White Blood 4.2 10^3/uL 3.5-10.8 [phone] Count Red Blood Count 4.69 10^6/uL 4.0-5.4 Hemoglobin [...] Cells % 0.1 Comp Metabolic Panel 01/06/2017 [facility] Sodium 135 mmol/L 133-145 [phone] Potassium 3.7 mmol/L 3.5-5.0 Chloride 105 mmol/L [...] Egfr Non- 65.3 >60 Egfr 84.0 >60 35 Laboratory test 01/06/2017 [facility] Magnesium 1.9 mg/dL 1.9-2.7 finding [phone] Troponin-I (TnI) 0.00 ng/mL <0.04 36 D Dimer Quantitative 357 ng/mL High Less Than 230 37 Urinalysis Profile 06/17/2016 [facility] Urine Color Straw [phone] Urine Appearance Clear Urine Specific [place] 1.011 1.010-1.030 Urine pH 7.0 5-9 Urine Urobilinogen Negative Negative Urine Ketones Negative Negative Urine Protein Negative Negative Urine Leukocytes Negative Negative Urine Blood Negative Negative Urine Nitrite Negative Negative Urine Bilirubin Negative Negative Urine Glucose Negative Negative Laboratory test 06/17/2016 [facility] Troponin I 0.00 ng/mL <0.03 38 finding [phone] Comp Metabolic 06/17/2016 [facility] Sodium 136 mmol/ L 133-145 Panel [phone] Potassium 3.7 mmol/L 3.5-5.0 Chloride 102 mmol/L [...] Egfr Non- 59.9 >60 Egfr 77.0 >60 39 CBC Auto Diff 06/17/2016 [facility] White Blood 7.9 10^3/uL 3.5-10.8 [phone] Count Red Blood Count 4.54 10^6/uL 4.0-5.4 Hemoglobin [...] Cells % 0.6 CBC Auto Diff 03/31/2016 [facility] White Blood 7.7 10^3/uL 3.5-10.8 [phone] Count Red Blood Count 4.79 10^6/uL 4.0-5.4 Hemoglobin [...] Cells % 0 Comp Metabolic Panel 03/31/2016 [facility] Sodium 135 mmol/L 133-145 [phone] Potassium 3.5 mmol/L 3.5-5.0 Chloride 102 mmol/L [...] Egfr Non- 71.4 >60 Egfr 91.8 >60 40 Urinalysis Profile 03/31/2016 [facility] Urine Color Yellow [phone] Urine Appearance Clear Urine Specific [place] 1.012 1.010-1.030 Urine pH 6.0 5-9 Urine Urobilinogen Negative Negative Urine Ketones Negative Negative Urine Protein Negative Negative Urine Leukocytes Negative Negative Urine Blood Negative Negative Urine Nitrite Negative Negative Urine Bilirubin Negative Negative Urine Glucose Negative Negative Laboratory test 03/31/2016 [facility] C Reactive 46.93 mg/L High < 5.00 41 finding [phone] Protein HCG < 0.60 mIU/mL 42 Laboratory test 12/31/2014 [facility] TSH (Thyroid 2.67 IU/mL 0.34-5.60 finding [phone] Stimulating Horm) Vitamin B12 344 pg/mL [phone] 43 CBC Auto Diff 12/31/2014 [facility] White Blood 6.2 10^3/uL 4.8-10.8 [phone] Count Red Blood Count 4.42 10^6/uL 4.0-5.4 Hemoglobin [...] Cells % 0.1 Rapid Strep A 04/09/2014 [facility] Rapid Strep A ( SEE NOTE) 44 [phone] Laboratory test 04/09/2014 [facility] Throat Beta ( SEE NOTE) 45 finding [phone] Strep Culture Urinalysis 06/17/2013 [facility] Urine Color Suzie [phone] Urine Appearance Clear Urine Specific [place] 1.029 1.010-1.030 Urine Esterase Negative Negative Urine Nitrate Negative Negative Urine Urobilinogen Negative E.U./dL Negative Urine Protein 1+ mg/dL Negative Urine pH 5.5 5-9 Urine Blood 3+ Negative Urine Ketones Trace mg/dL Negative Urine Bilirubin 1+ Negative Urine Glucose Negative mg/dL Negative Urine Microscopic 06/17/2013 [facility] Urine RBC 3+ (>10 None Seen [phone] /hpf) Urine Mucus Present /lpf Absent Urine Epithelial Cells 1+ Squamous /hpf None Seen Manual Differential 10/05/2011 [facility] Polysegmented 45 % 38-83 [phone] Neutrophil Band Neutrophil 1 % 0-8 Lymphocyte 43 % 25-47 Monocyte 7 % 0-13 Eosinophil 4 % 0-6 Absolute Neutrophil Count 2.8 RBC Morphology NORMAL CBC Auto Diff 10/05/2011 [facility] White Blood 6.2 CUMM 4.8-10.8 [phone] Count Red Cell Count 4.42 CUMM 4.2-5.4 Hemoglobin 12.1 g/dL 12.0-16.0 Hematocrit 36 % 35-47 Mean Corpuscular Volume 81 um3 79-97 Mean Corpuscular Hemoglob 27 pg 27-31 Mean Corpuscular HGB Cone 34 g/dL 32-36 Redcell Distribution WDTH 13 % 10.5-15 Platelet Count 234 CUMM 150-450 Mean Platelet Volume 7.9 um3 7.4-10.4 46 Thyroid Panel 10/05/2011 [facility] Free Thyroxine 0.85 ng/dL 0.61-1.24 [phone] Thyroxine 7.2 g/dL 5-12 TSH 3.87 MIU/ML 0.34-5.60 Comp Metabolic Panel 10/05/2011 [facility] Sodium 137 mmol/L 135-145 [phone] Potassium 3.5 mmol/L 3.5-5.0 Chloride 105 mmol/L 101-111 Co2 (Carbon Dioxide) 27.0 mmol/L 22-32 Anion Gap 5.0 mmol/L 2-11 47 Glucose 75 mg/dL 70-100 BUN 13 mg/dL 6-24 Creatinine 1.0 mg/dL 0.50-1.40 One Over Creatinine 1.00 BUN/Creatinine Ratio 13.0 8-20 Calcium 8.8 mg/dL 8.1-9.9 Total Protein 6.4 GM/DL 6.2-8.1 Albumin 3.5 GM/DL Low 3.6-5.4 Globulin 2.9 GM/DL 2-4 Albumin/Globulin Ratio 1.2 1-3 Bilirubin Total 0.8 mg/dL 0.4-1.5 48 Alkaline Phosphatase 72 U/L 40-122 Alt (SGPT) 12 U/L Low 14-54 Ast (Sgot) 14 U/L 12-42 eGFR Non- 70.7 > 60 eGFR 90.9 > 60 49 Lipid Profile 10/05/2011 [facility] Triglyceride 41 mg/dL 40-200 (Trig/Chol/HDL) [phone] Cholesterol 166 mg/dL Less Than 200 50 High Density Lipoprotein 69 mg/dL High 40-60 51 Cholesterol/HDL Ratio 2.41 AVERAGE 1-4.44 Low Density Lipoprotein 89 mg/dL Less Than 100 52 1 SEE RESULT BELOW Name: TRICIA LANIER : [address]: Julieta Morris NP Acct: [id number] Unit: [id number] AGE: 28 Location: [facility] Re07/28/18 SEX: F Status: REG REF SPEC: [id number] MICHAEL: 07/28/18-[address]: Julieta Morris NP REQ: [id number] RECD: 07/28/18 STATUS: SOUT _ ORDERED: TP IMAGE ANALYS, HPV/Thin Prep, HPV 16/18 GENE COMMENTS: [id number] Negative for Intraepithelial lesion or Malignancy Date Time Test Result Flag (u) Normal Range 07/28/18 1140 @ HPV RNA RFLX GE Negative Negative @ @ The high-risk HPV types detected by the assay include: 16, @ 18, 31, 33, 35, 39, 45, 51, 52, 56, 58, 59, 66, and 68. A. Ectocervical/Endocervical Specimen Adequacy: Satisfactory of evaluation Transformation zone component identified Patient Information: HPV: High risk HPV RNA testing regardless of pap results. HPV 16/18 Genotype Reflex Actual Specimen Date: 07/28/18 LMP If Unknown: unknown Spec Date if unknown: none Signed by and Reported on: ALEXUS Tarango (ASCP) [id number] This Pap test was evaluated with the assistance of the CodelearnPrep Test Imaging System. Due to cytologic findings at the outpatient physical therapist assistant microscope, comprehensive manual rescreening by a Molding Manager may be required. The Pap Smear is a screening test designed to aid in the detection of premalignant and malignant conditions of the uterine cervix. It is not a diagnostic procedure and should not be used as the sole means of detecting cervical cancer. Both false- positive and false- negative reports do occur. Depending on your risk status, a Pap smear should be obtained and evaluated every 1-3 years. END OF REPORT DEPARTMENT OF PATHOLOGY, [address] [place] [address] Michael Mariano M.D. Director [facility] # [id number] 2 Because ethnic data is not always readily [...] 15-29 5 Kidney failure <15 (or dialysis) 3 [id number] 4 REFERENCE VALUE <4.0 (Negative) Test Performed by: [place] [address] 5 Negative serology. Celiac disease unlikely. However, approximately 10% of patients with celiac disease are seronegative. Also, patients who are already adhering to a gluten-free diet may be seronegative. If celiac disease is highly clinically suspected, consider HLA-DQ typing. Test Performed by: [place] [address] 6 Normal Range 180 to 914 Indeterminate Range 145 to 180 Deficient Range <145 7 [id number] Test Performed by: [place] [address] 9 Because ethnic data is not always readily [...] 15-29 5 Kidney failure <15 (or dialysis) 10 [id number] 11 Because ethnic data is not always readily [...] 15-29 5 Kidney failure <15 (or dialysis) 12 Desirable: <150 Borderline High: 150-199 High: 200-499 Very High: >500 13 Desirable: <200 Borderline High: 200-239 High: >239 14 Low: <40 Desirable: 40-60 High: >60 15 Desirable: <100 Near Optimal: 100-129 Borderline High: 130-159 High: 160-189 Very High: >189 16 Therapeutic target for the treatment of diabetes mellitus patients is <7% HBA1C, and in selective patients <6.0%. Please refer to [place] [employer] diabetic care guidelines for further information. 17 [id number] 18 [id number] 19 [id number] 20 RESULT: Results suggest past infection. ADDITIONAL INFORMATION [...] primary infection with EBV. Test Performed by: [facility] [address] [place] [address] 21 Non Destructive Testing Supervisor: [id number] 22 SEE RESULT BELOW Name: TRICIA LANIER : [address]: Joshua Ruiz MD Acct: [id number] Unit: [id number] AGE: 27 Location: ED Re08/21/17 SEX: F Status: REG ER SPEC: [id number] MICHAEL: 08/21/17-1153 [facility] DR: Caroline LING REQ: [id number] RECD: 08/21/17 STATUS: MARTELL LEIVA DR: [facility] Yani Urban INSPECTOR TUBES _ SOURCE: THROAT SPDESC: ORDERED: Strep A Request Procedure Result Reported Site Rapid Strep A Request Final 08/21/17- 1209 ML Specimen received for Rapid Strep A Molecular testing * ML - MAIN LAB ([facility]) . END OF REPORT * ML=Testing performed at Main Lab DEPARTMENT OF PATHOLOGY, [address] [place] [address] Michael Mariano M.D. Director [facility] # [id number] 23 [facility] Severe Sepsis and Septic Shock Management Bundle Measure requires all lactic acids initially measuring >2.0 mmol/L be repeated. 24 >100 to <200 pg/mL: likely compensated congestive heart failure (CHF) 200 to 400 pg/mL: likely moderate CHF >400 pg/mL: likely moderate to severe CHF 25 Because ethnic data is not always readily [...] 15-29 5 Kidney failure <15 (or dialysis) 26 SEE RESULT BELOW Name: TRICIA LANIER : [address]: Ancelmo Meyers DO Acct: [id number] Unit: [id number] AGE: 27 Location: ED Re05/11/17 SEX: F Status: REG ER SPEC: [id number] MICHAEL: 05/11/[address]: Ancelmo Meyers DO REQ: [id number] RECD: 05/11/17 STATUS: MARTELL LEIVA DR: Yani Urban INSPECTOR TUBES _ SOURCE: THROAT SPDESC: ORDERED: Strep A Request Procedure Result Reported Site Rapid Strep A Request Final 05/11/17927 ML Specimen received for Rapid Strep A Molecular testing * ML - MAIN LAB ([facility]) . END OF REPORT * ML=Testing performed at Main Lab DEPARTMENT OF PATHOLOGY, [address] [place] [address] Michael Mariano M.D. Director [facility] # [id number] 27 Non Destructive Testing Supervisor: [id number] SEE RESULT BELOW Name: TRICIA LANIER :

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
[2018-08-28] MEDS ORDERED: Ketorolac INJ* 60 MG/2 ML VIAL IM ONE (09:08)
--- NOTE | 2018-08-28 09:20 | ED ---
Allergic Reaction/Systemic - HPI Summary HPI Summary: Patient is an otherwise healthy 28-year-old female presenting to the ED with left upper lip swelling 2 days. She states she had a tooth extracted on the ipsilateral side just behind the lip 2 days ago and shortly after taking Tylenol with Codeine. She denies any difficulty with breathing. Denies any dysphagia or odynophagia. She is endorsing pain to the left upper tooth as she no longer is taking the Tylenol with Codeine for fear this is an allergy. She states she is otherwise stable. Denies any fevers, sweats, chills. She states she has had Tylenol with Codeine in the past without a reaction. No drainage from the recently extracted tooth. - History of Current Complaint Chief Complaint: EDAllergicReaction Time Seen by Provider: 08/28/18 08:53 Hx Obtained From: Patient Hx Last Menstrual Period: now Onset/Duration: Sudden Onset Timing: Constant Severity Initially: Mild Severity Currently: Mild Pain Intensity: 4 Pain Scale Used: 0-10 Numeric Character: Swelling Alleviating Factor(s): Cold, Antihistamines Associated Signs And Symptoms: Positive: Negative - Related Hx Possible Reaction To: Medications - Allergies/Home Medications Allergies/Adverse Reactions: Allergies Allergy/AdvReac Type Severity Reaction Status Date / Time MS Salamidacetic Acid Allergy Severe swelling,it Verified 08/28/18 09:23 [Salamidacetic Acid] valente pantoprazole [From Protonix] Allergy Severe Anaphylatic Verified 08/28/18 09:23 Shock pyridoxine Allergy Severe Hives Verified 08/28/18 09:23 shellfish derived Allergy Severe Swelling Verified 08/28/18 09:23 Of Face,Lips,& Throat shrimp AdvReac Intermediate Itching Verified 08/28/18 08:48 SALT WATER SEAFOOD Allergy Severe Swelling Uncoded 08/28/18 09:23 Of Face,Lips,& Throat blueberries Allergy Intermediate sweilling Uncoded 08/28/18 08:48 ,itching PMH/Surg Hx/FS Hx/Imm Hx Previously Healthy: Yes Endocrine/Hematology History: Denies: Hx Diabetes, Hx Thyroid Disease Cardiovascular History: Denies: Hx Hypertension, Hx Pacemaker/ICD Respiratory History: Reports: Hx Asthma Denies: Hx Chronic Obstructive Pulmonary Disease (COPD) GI History: Denies: Hx Ulcer Comment Only: Other GI Disorders - pt obese, 5 4" and 250 lbs. History: Denies: Hx Renal Disease Sensory History: Denies: Hx Hearing Aid Psychiatric History: Denies: Hx Panic Disorder - Immunization History Date of Tetanus Vaccine: unk Date of Influenza Vaccine: utd Infectious Disease History: No Infectious Disease History: Denies: Hx Clostridium Difficile, Hx Hepatitis, Hx Human Immunodeficiency Virus (HIV), Hx of Known/Suspected MRSA, Hx Shingles, Hx Tuberculosis, Hx Known/ Suspected VRE, Hx Known/Suspected VRSA, History Other Infectious Disease, Traveled Outside the [place] in Last 30 Days - Family History Known Family History: Positive: Diabetes - Mother, Respiratory Disease - Asthma (mother) Negative: Cardiac Disease, Hypertension - Social History Occupation: Unemployed Lives: With Family Alcohol Use: None Hx Substance Use: No Substance Use Type: Reports: None Hx Tobacco Use: No Smoking Status (MU): Never Smoked Tobacco Review of Systems Constitutional: Negative Negative: Fever, Chills, Fatigue, Skin Diaphoresis Negative: Sore Throat, Ear Ache, Nasal Discharge Negative: Palpitations, Chest Pain Negative: Shortness Of Breath, Cough Negative: Arthralgia, Myalgia Positive: Other - swelling of L upper lip Neurological: Negative All Other Systems Reviewed And Are Negative: Yes Physical Exam Triage Information Reviewed: Yes Vital Signs On Initial Exam: Initial Vitals Temp Pulse Resp BP Pulse Ox 97.7 F 87 14 153/94 96 08/28/18 08:49 08/28/18 08:49 08/28/18 08:49 08/28/18 08:49 08/28/18 08:49 Vital Signs Reviewed: Yes Appearance: Positive: Well-Appearing, Well-Nourished Skin: Positive: Warm, Skin Color Reflects Adequate Perfusion Head/Face: Positive: Normal Head/Face Inspection Eyes: Positive: EOMI, MAEGAN, Conjunctiva Clear Neck: Positive: Supple, No Lymphadenopathy Respiratory/Lung Sounds: Positive: Clear to Auscultation, Breath Sounds Present Cardiovascular: Positive: RRR, Pulses are Symmetrical in both Upper and Lower Extremities Musculoskeletal: Positive: Strength/ROM Intact, Pain @ - left upper tooth # 11 from recent extraction Neurological: Positive: Speech Normal Psychiatric: Positive: Normal, Affect/Mood Appropriate AVPU Assessment: Alert Diagnostics - Vital Signs Vital Signs Temp Pulse Resp BP Pulse Ox 08/28/18 08:49 97.7 F 87 14 153/94 96 - Laboratory Lab Statement: Any lab studies that have been ordered have been reviewed, and results considered in the medical decision making process. Allergic Reaction Course/Dx - Course Course Of Treatment: Lamination, there is evidence of a recently extracted tooth over #11. There is no signs of drainage or infection. No swelling around the gumline. There is a slight amount of swelling to the upper left lip. Airway is patent. Patient will be given Toradol for pain control and is encouraged to discontinue tylenol with codeine. Also given steroids x 3 days. No evidence of anaphylaxis. - Diagnoses Differential Diagnosis/HQI/PQRI: Positive: Local Allergic Reaction Provider Diagnoses: Allergic reaction caused by a drug Discharge - Sign-Out/Discharge Documenting (check all that apply): Patient Departure - Discharge Plan Condition: Stable Disposition: HOME Prescriptions: Ketorolac TAB * [Toradol TAB *] 10 mg PO Q6H #16 tab predniSONE TAB* [Deltasone TAB*] 50 mg PO DAILY #3 tab MDD 1 Referrals: Yani Banks NP [Primary Care Provider] - Additional Instructions: Ice to the area Benadryl 25mg three times daily Prednisone once daily in the morning (starting today) Toradol up to four times daily for pain (do not take ibpurofen while taking this medication) - Billing Disposition and Condition Condition: STABLE Disposition: Home
[2018-08-28 09:23] VITALS: BP 0/0
== END 2018-08-28 09:21 | disposition home or self-care (01) ==
LOC: ED 08:45
DX: T40.2X5A Adverse effect of other opioids, initial encounter (principal); X58.XXXA Exposure to other specified factors, initial encounter; Z88.8 Allergy status to other drugs, medicaments and biological substances
CPT/HCPCS: 96372; 99282; J1885

== ENCOUNTER 2019-05-24 17:13 | Emergency (ER) | payer OTHER ==
[2019-05-24 17:58] LABS: Rapid Strep Molecular Negative (Negative)
[2019-05-24 18:09] LABS: Urine Appearance Cloudy; Urine Bacteria Absent (Absent); Urine Bilirubin Negative (Negative); Urine Blood 3+ (Negative); Urine Color Amber; Urine Glucose Negative (Negative); Urine Ketones Negative (Negative); Urine Nitrite Negative (Negative); Urine Protein 1+(30 mg/dL) (Negative); Urine Red Blood Cell 3+(>10/hpf) (Absent); Urine Squamous Epithelial Cell Present (Absent); Urine Urobilinogen Negative (Negative); Urine White Blood Cell 3+(>20/hpf) (Absent)
[2019-05-24 18:10] LABS: ABS Eosinophils 0.2 10^3/ul (0-0.6); ABS Lymphocytes 1.4 10^3/ul (1.0-4.8); ABS Monocytes 0.7 10^3/ul (0-0.8); Eosinophil % 2.1 %; Hematocrit 33 % (35-47); Hemoglobin 10.6 g/dL (12.0-16.0); Lymphocyte % 14.7 %; Mean Corpuscular HGB Conc 32 g/dL (31-36); Mean Corpuscular Hemoglobin 25 pg (27-31); Mean Corpuscular Volume 79 fL (80-97); Platelet Count 239 10^3/uL (150-450); Red Blood Count 4.21 10^6 /uL (3.70-4.87); Red Cell Distribution Width 15 % (10-15); White Blood Count 9.3 10^3/uL (3.5-10.8)
[2019-05-24 18:28] LABS: Albumin 3.6 g/dL (3.2-5.2); Albumin/Globulin Ratio 1.1 (1-3); BUN/Creatinine Ratio 8.7 (8-20); C Reactive Protein 115.91 mg/L (<8.01); Calcium 8.8 mg/dL (8.6-10.3); EGFR African American 76.3 (>60); EGFR Non-African American 63.1 (>60); Globulin 3.4 g/dL (2-4); Potassium 3.7 mmol/L (3.5-5.0); Total Bilirubin 0.4 mg/dL (0.2-1.0)
--- NOTE | 2019-05-24 18:45 | ED ---
GI/ HPI - HPI Summary HPI Summary: 29-year-old female presents with dysuria or hematuria. She admits to sore throat. She denies any fevers. Denies any flank. She admits to suprapubic pain. No vaginal discharge. No vaginal lesions. She never had this before. No history of kidney stones. Denies any cough. no chest pain or SOB. Has no medical conditions. - History of Current Complaint Chief Complaint: EDUrogenitalProblems Time Seen by Provider: 05/24/19 17:30 Stated Complaint: BLOOD IN URINE/SORE THROAT PER PT Hx Last Menstrual Period: 12/11/18 Pain Intensity: 3 - Allergy/Home Medications Allergies/Adverse Reactions: Allergies Allergy/AdvReac Type Severity Reaction Status Date / Time MS Salamidacetic Acid Allergy Severe swelling,it Verified 12/19/18 17:27 [Salamidacetic Acid] valente pantoprazole [From Protonix] Allergy Severe Anaphylatic Verified 12/19/18 17:27 Shock pyridoxine Allergy Severe Hives Verified 12/19/18 17:27 shellfish derived Allergy Severe Swelling Verified 12/19/18 17:27 Of Face,Lips,& Throat shrimp AdvReac Intermediate Itching Verified 12/19/18 17:27 SALT WATER SEAFOOD Allergy Severe Swelling Uncoded 12/19/18 17:27 Of Face,Lips,& Throat blueberries Allergy Intermediate sweilling Uncoded 12/19/18 17:27 ,itching PMH/Surg Hx/FS Hx/Imm Hx Endocrine/Hematology History: Denies: Hx Diabetes, Hx Thyroid Disease Cardiovascular History: Denies: Hx Hypertension, Hx Pacemaker/ICD Respiratory History: Reports: Hx Asthma Denies: Hx Chronic Obstructive Pulmonary Disease (COPD) GI History: Denies: Hx Ulcer Comment Only: Other GI Disorders - pt obese, 5 4" and 250 lbs. History: Denies: Hx Renal Disease Sensory History: Denies: Hx Hearing Aid Psychiatric History: Denies: Hx Panic Disorder - Immunization History Date of Tetanus Vaccine: unk Date of Influenza Vaccine: utd Infectious Disease History: No Infectious Disease History: Denies: Hx Clostridium Difficile, Hx Hepatitis, Hx Human Immunodeficiency Virus (HIV), Hx of Known/Suspected MRSA, Hx Shingles, Hx Tuberculosis, Hx Known/ Suspected VRE, Hx Known/Suspected VRSA, History Other Infectious Disease, Traveled Outside the [place] in Last 30 Days - Family History Known Family History: Positive: Diabetes - Mother, Respiratory Disease - Asthma (mother) Negative: Cardiac Disease, Hypertension - Social History Alcohol Use: None Hx Substance Use: No Substance Use Type: Reports: None Hx Tobacco Use: No Smoking Status (MU): Never Smoked Tobacco Review of Systems Negative: Fever Positive: Sore Throat Negative: Chest Pain Negative: Shortness Of Breath Positive: dysuria All Other Systems Reviewed And Are Negative: Yes Physical Exam Triage Information Reviewed: Yes Vital Signs On Initial Exam: Initial Vitals Temp Pulse Resp BP Pulse Ox 97.9 F 91 18 107/76 96 05/24/19 17:16 05/24/19 17:16 05/24/19 17:16 05/24/19 17:16 05/24/19 17:16 Vital Signs Reviewed: Yes Appearance: Positive: Well-Appearing Skin: Positive: Warm, Dry Head/Face: Positive: Normal Head/Face Inspection Eyes: Positive: Normal, EOMI, MAEGAN, Conjunctiva Clear ENT: Positive: Pharyngeal erythema, TMs normal, Tonsillar swelling, Tonsillar exudate, Uvula midline, Other - soft palate symmetric. Negative: Trismus, Muffled voice Respiratory/Lung Sounds: Positive: Clear to Auscultation, Breath Sounds Present Cardiovascular: Positive: Normal, RRR Abdomen Description: Positive: Nontender, Soft Bowel Sounds: Positive: Present Musculoskeletal: Positive: Normal Neurological: Positive: Normal Psychiatric: Positive: Normal Diagnostics - Vital Signs Vital Signs Temp Pulse Resp BP Pulse Ox 05/24/19 17:16 97.9 F 91 18 107/76 96 - Laboratory Lab Results: Lab Results 05/24/19 05/24/19 05/24/19 Range/Units 17:35 17:35 18:05 WBC 9.3 (3.5-10.8) 10^3/uL RBC 4.21 (3.70-4.87) 10^6 /uL Hgb 10.6 L (12.0-16.0) g/dL Hct 33 L (35-47) % MCV 79 L (80-97) fL MCH 25 L (27-31) pg MCHC 32 (31-36) g/dL RDW 15 (10-15) % Plt Count 239 (150-450) 10^3/uL MPV 7.0 L (7.4-10.4) fL Neut % (Auto) 75.6 % Lymph % (Auto) 14.7 % [place] % (Auto) 7.2 % Eos % (Auto) 2.1 % Baso % (Auto) 0.4 % Absolute Neuts (auto) 7.0 (1.5-7.7) 10^3/ul Absolute Lymphs (auto) 1.4 (1.0-4.8) 10^3/ul Absolute Monos (auto) 0.7 (0-0.8) 10^3/ul Absolute Eos (auto) 0.2 (0-0.6) 10^3/ul Absolute Basos (auto) 0.0 (0-0.2) 10^3/ul Absolute Nucleated RBC 0.0 10^3/ul Nucleated RBC % 0.0 Sodium (135-145) mmol/L Potassium (3.5-5.0) mmol/L Chloride (101-111) mmol/L Carbon Dioxide (22-32) mmol/L Anion Gap (2-11) mmol/L BUN (6-24) mg/dL Creatinine (0.51-0.95) mg/dL Est GFR ( Amer) (>60) Est GFR (Non-Af Amer) (>60) BUN/Creatinine Ratio (8-20) Glucose (70-100) mg/dL Calcium (8.6-10.3) mg/dL Total Bilirubin (0.2-1.0) mg/dL AST (13-39) U/L ALT (7-52) U/L Alkaline Phosphatase (34-104) U/L C-Reactive Protein (<8.01) mg/L Total Protein (6.4-8.9) g/dL Albumin (3.2-5.2) g/dL Globulin (2-4) g/dL Albumin/Globulin Ratio (1-3) Urine Color Suzie Urine Appearance Cloudy Urine pH 5.0 (5-9) Ur Specific [place] 1.020 (1.010-1.030) Urine Protein 1+(30 mg/dl) A (Negative) Urine Ketones Negative (Negative) Urine Blood 3+ A (Negative) Urine Nitrate Negative (Negative) Urine Bilirubin Negative (Negative) Urine Urobilinogen Negative (Negative) Ur Leukocyte Esterase 1+ A (Negative) Urine WBC (Auto) 3+(>20/hpf) A (Absent) Urine RBC (Auto) 3+(>10/hpf) A (Absent) Ur Squamous Epith Cells Present A (Absent) Urine Bacteria Absent (Absent) Hyaline Casts Present A (Absent) Urine Glucose Negative (Negative) Monoscreen Pending Group A Strep Rapid Negative (Negative) 05/24/19 Range/Units 18:05 WBC (3.5-10.8) 10^3/uL RBC (3.70-4.87) 10^6 /uL Hgb (12.0-16.0) g/dL Hct (35-47) % MCV (80-97) fL MCH (27-31) pg MCHC (31-36) g/dL RDW (10-15) % Plt Count (150-450) 10^3/uL MPV (7.4-10.4) fL Neut % (Auto) % Lymph % (Auto) % [place] % (Auto) % Eos % (Auto) % Baso % (Auto) % Absolute Neuts (auto) (1.5-7.7) 10^3/ul Absolute Lymphs (auto) (1.0-4.8) 10^3/ul Absolute Monos (auto) (0-0.8) 10^3/ul Absolute Eos (auto) (0-0.6) 10^3/ul Absolute Basos (auto) (0-0.2) 10^3/ul Absolute Nucleated RBC 10^3/ul Nucleated RBC % Sodium 137 (135-145) mmol/L Potassium 3.7 (3.5-5.0) mmol/L Chloride 104 (101-111) mmol/L Carbon Dioxide 27 (22-32) mmol/L Anion Gap 6 (2-11) mmol/L BUN 9 (6-24) mg/dL Creatinine 1.04 H (0.51-0.95) mg/dL Est GFR ( Amer) 76.3 (>60) Est GFR (Non-Af Amer) 63.1 (>60) BUN/Creatinine Ratio 8.7 (8-20) Glucose 111 H (70-100) mg/dL Calcium 8.8 (8.6-10.3) mg/dL Total Bilirubin 0.40 (0.2-1.0) mg/dL AST 9 L (13-39) U/L ALT 8 (7-52) U/L Alkaline Phosphatase 70 (34-104) U/L C-Reactive Protein 115.91 H (<8.01) mg/L Total Protein 7.0 (6.4-8.9) g/dL Albumin 3.6 (3.2-5.2) g/dL Globulin 3.4 (2-4) g/dL Albumin/Globulin Ratio 1.1 (1-3) Urine Color Urine Appearance Urine pH (5-9) Ur Specific [place] (1.010-1.030) Urine Protein (Negative) Urine Ketones (Negative) Urine Blood (Negative) Urine Nitrate (Negative) Urine Bilirubin (Negative) Urine Urobilinogen (Negative) Ur Leukocyte Esterase (Negative) Urine WBC (Auto) (Absent) Urine RBC (Auto) (Absent) Ur Squamous Epith Cells (Absent) Urine Bacteria (Absent) Hyaline Casts (Absent) Urine Glucose (Negative) Monoscreen Group A Strep Rapid (Negative) Result Diagrams: 05/24/19 18:05 05/24/19 18:05 Lab Statement: Any lab studies that have been ordered have been reviewed, and results considered in the medical decision making process. Re-Evaluation - Re-Evaluation First Eval Re-Evaluation Time: 19:26 Comment: discussed results. got ASO just bc of symptoms although bp is normal and renal function is same so low suspicion of poststrept glomernephritis GIGU Course/Dx - Course Course Of Treatment: 29-year-old female presents with dysuria or hematuria. She admits to sore throat. She denies any fevers. Denies any flank. She admits to suprapubic pain. No vaginal discharge. No vaginal lesions. She never had this before. No history of kidney stones. Denies any cough. Has no medical conditions. On exam has pharynx erythematous. Uvula midline. Soft palate symmetric. Has tenderness suprapubically. Strep negative. Urine shows a UTI. White blood count normal. Creatinine is similar to previous. mono neg. will place on augmentin for uti. patient understand and agrees with plan. - Diagnoses Differential Diagnoses - Female: Urinary Tract Infection, Ureteral Calculi, Other - strept, post strept glomernephritis Provider Diagnoses: Pharyngitis, UTI (urinary tract infection) Discharge - Sign-Out/Discharge Documenting (check all that apply): Patient Departure Patient Received Moderate/Deep Sedation with Procedure: No - Discharge Plan Condition: Good Disposition: HOME Prescriptions: Amoxicillin/Clavulanate TAB* [Augmentin TAB 875*] 875 mg PO BID #9 tab Magic Mouth Was-CASS/MAAL/LIDO* 5 ml SWISH SPIT QID #100 ml Patient Education Materials: Urinary Tract Infection in Women (ED) Referrals: [facility] [Outside] Additional Instructions: Take augmentin twice a day for 5 days, first dose given in ED swish and spit magic mouth wash 5ml four times a day take tyenlol or ibuprofen every 6 hours for pain establish care with primary Return to ED if develop any new or worsening symptoms - Billing Disposition and Condition Condition: GOOD Disposition: Home
[2019-05-24] MEDS ORDERED: Amoxicillin/Clavulanate TAB* 875 MG PO ONE (19:14)
[2019-05-24 19:43] VITALS: BP 110/69
[2019-05-26 12:26] LABS: Neisseria gonorrhoeae (GC) RNA Negative (Negative)
== END 2019-05-24 19:42 | disposition home or self-care (01) ==
LOC: ED 17:13
DX: J02.9 Acute pharyngitis, unspecified (principal); N39.0 Urinary tract infection, site not specified; R30.0 Dysuria
CPT/HCPCS: 36415; 80053; 81003; 81015; 85025; 86060; 86140; 86308; 87086; 87491; 87591; 87651; 99282; A9270-GY

== ENCOUNTER 2019-09-02 12:58 | Emergency (ER) | payer MEDICAID ==
[2019-09-02] MEDS ORDERED: Albuterol/Ipratropium NEB.SOL* Albuterol 2.5 MG/Ipratropium 0.5 MG 3 ML INH ONE (14:09)
[2019-09-02] MEDS ORDERED: Benzonatate CAP* 100 MG PO ONE (14:35)
[2019-09-02 15:20] VITALS: BP 109/76
[2019-09-03] MEDS ORDERED: predniSONE TAB* 50 MG PO ONE (14:09)
--- NOTE | 2019-09-06 08:04 | ED ---
Shortness of Breath - HPI Summary HPI Summary: This patient is a 29-year-old female with a history of asthma presenting to the ED with worsening shortness of breath over the past 2 days. Patient states despite using her albuterol inhaler, her shortness of breath continues to worsen. She endorses tightness in the chest as well as a mild cough. Denies any fevers, sweats, chills. Denies any abdominal pain or chest pain. Denies any headaches. She does have a inhalation/nebulizer treatment at home, but has no medication for this. She states every once in a while she needs to use her nebulizer. - History of Current Complaint Chief Complaint: EDAsthma Time Seen by Provider: 09/02/19 13:53 Hx Obtained From: Patient Onset/Duration: Sudden Onset Timing: Constant Current Severity: Mild Associated Signs & Symptoms: Cough (Nonproductive), Wheezing - Risk Factors Pulmonary Embolism: Negative Cardiac: Negative Pseudomonas: Negative Tuberculosis: Negative - Allergy/Home Medications Allergies/Adverse Reactions: Allergies Allergy/AdvReac Type Severity Reaction Status Date / Time pantoprazole [From Protonix] Allergy Severe Anaphylatic Verified 09/04/19 17:32 Shock pyridoxine Allergy Severe Hives Verified 09/04/19 17:32 shellfish derived Allergy Severe Swelling Verified 09/04/19 17:32 Of Face,Lips,& Throat shrimp AdvReac Intermediate Itching Verified 09/04/19 17:32 SALT WATER SEAFOOD Allergy Severe Swelling Uncoded 09/04/19 17:32 Of Face,Lips,& Throat blueberries Allergy Intermediate sweilling Uncoded 09/04/19 17:32 ,itching salamidacetic acid Allergy Swelling Uncoded 09/04/19 17:32 PMH/Surg Hx/FS Hx/Imm Hx Previously Healthy: Yes Endocrine/Hematology History: Denies: Hx Diabetes, Hx Thyroid Disease Cardiovascular History: Denies: Hx Hypertension, Hx Pacemaker/ICD Respiratory History: Reports: Hx Asthma Denies: Hx Chronic Obstructive Pulmonary Disease (COPD) GI History: Denies: Hx Ulcer Comment Only: Other GI Disorders - pt obese, 5 4" and 250 lbs. History: Denies: Hx Renal Disease Sensory History: Denies: Hx Hearing Aid Psychiatric History: Denies: Hx Panic Disorder - Immunization History Date of Tetanus Vaccine: unk Date of Influenza Vaccine: utd Hx Pertussis Vaccination: No Immunizations Up to Date: Yes Infectious Disease History: No Infectious Disease History: Denies: Hx Clostridium Difficile, Hx Hepatitis, Hx Human Immunodeficiency Virus (HIV), Hx of Known/Suspected MRSA, Hx Shingles, Hx Tuberculosis, Hx Known/ Suspected VRE, Hx Known/Suspected VRSA, History Other Infectious Disease, Traveled Outside the [place] in Last 30 Days - Family History Known Family History: Positive: Diabetes - Mother, Respiratory Disease - Asthma (mother) Negative: Cardiac Disease, Hypertension - Social History Occupation: Unemployed Lives: With Family Alcohol Use: None Hx Substance Use: No Substance Use Type: Reports: None Hx Tobacco Use: No Smoking Status (MU): Never Smoked Tobacco Review of Systems Negative: Fever, Chills, Fatigue, Skin Diaphoresis Negative: Palpitations, Chest Pain Positive: Shortness Of Breath, Cough Negative: Abdominal Pain, Vomiting, Diarrhea Genitourinary: Negative Positive: no symptoms reported, see HPI Negative: Rash, Bruising Negative: Weakness Psychological: Normal All Other Systems Reviewed And Are Negative: Yes Physical Exam Triage Information Reviewed: Yes Vital Signs On Initial Exam: Initial Vitals Temp Pulse Resp BP Pulse Ox 98.0 F 88 18 159/94 99 09/02/19 13:04 09/02/19 13:04 09/02/19 13:04 09/02/19 13:04 09/02/19 13:04 Vital Signs Reviewed: Yes Appearance: Positive: Well-Appearing, Well-Nourished Skin: Positive: Warm, Skin Color Reflects Adequate Perfusion Head/Face: Positive: Normal Head/Face Inspection Eyes: Positive: EOMI, MAEGAN, Conjunctiva Clear Neck: Positive: Supple Respiratory/Lung Sounds: Positive: Wheezes. Negative: Unable to speak in full sentences, Fatigue Cardiovascular: Positive: RRR, Pulses are Symmetrical in both Upper and Lower Extremities Musculoskeletal: Positive: Normal, Strength/ROM Intact Neurological: Positive: Speech Normal Psychiatric: Positive: Affect/Mood Appropriate AVPU Assessment: Alert Procedures - Sedation Patient Received Moderate/Deep Sedation with Procedure: No Diagnostics - Vital Signs Vital Signs Temp Pulse Resp BP Pulse Ox 09/02/19 15:20 97.6 F 78 20 109/76 99 09/02/19 14:17 88 20 100 09/02/19 13:04 98.0 F 88 18 159/94 99 - Laboratory Lab Statement: Any lab studies that have been ordered have been reviewed, and results considered in the medical decision making process. Course/Dx - Course Course Of Treatment: During the course of treatment, the patient is evaluated for an asthma exacerbation. Patient denies any fevers, sweats, chills, cough with production. She does endorse a mild cough, however this is without production and associated with worsening shortness of breath. She endorses wheezing and tightness in the chest. Denies history of cardiac issues. She was giving a DuoNeb on arrival which improved her symptoms. She was also given a Tessalon which improved her cough. She was prescribed Tessalon and duo nebs for at home. She will continue her treatments as needed. She will return for any fevers or worsening sxs. Tightness and wheezing greatly improved s/p duo neb treatment. - Diagnoses Provider Diagnoses: Cough, Asthma exacerbation Discharge ED - Sign-Out/Discharge Documenting (check all that apply): Patient Departure - Discharge Plan Condition: Stable Disposition: HOME Prescriptions: Albuterol/Ipratropium NEB.TELLY* [Duoneb (Albuterol 2.5 MG/Ipratropium 0.5 MG)] 1 neb INH Q4H #30 neb.soln Benzonatate CAP* [Tessalon CAP*] 100 mg PO TID #21 cap Patient Education Materials: Bronchospasm (ED) Referrals: [facility] [Outside] No Primary Care Phys,NOPCP [Primary Care Provider] - Additional Instructions: Please follow-up with the [facility] I have given your referral DuoNeb up to 6 times daily as needed for shortness of breath Continue to use your albuterol inhaler Prednisone once daily 4 days, start this medication tomorrow Tessalon up to 3 times daily for cough - Billing Disposition and Condition Condition: STABLE Disposition: Home
== END 2019-09-02 15:20 | disposition home or self-care (01) ==
LOC: ED 12:58
DX: J45.909 Unspecified asthma, uncomplicated (principal); E66.9 Obesity, unspecified
CPT/HCPCS: 99282; A9270-GY; J7512

== ENCOUNTER 2019-09-04 17:20 | Emergency (ER) | payer MEDICAID ==
[2019-09-04 17:31] VITALS: BP 135/61
--- NOTE | 2019-09-04 18:22 | UC ---
Nausea/Vomiting/Diarrhea HPI - HPI Summary HPI Summary: 29-year-old female who had a positive test at home and she came here for a repeat test and for nausea. She denies any other symptoms of illness. The beginning of her last menses was the end of June. She has been sexually active without use of control. - History of Current Complaint Chief Complaint: UCGI Stated Complaint: PERSONAL AND VOMITING... Time Seen by Provider: 09/04/19 17:55 Hx Obtained From: Patient Hx Last Menstrual Period: 2 months ago ?: Yes - patient had a positive test at home Onset/Duration: Gradual Onset Timing: Constant Severity Initially: Mild Severity Currently: Mild Pain Intensity: 0 Location: Other - No pain Aggravating Factor(s): Food Alleviating Factor(s): Nothing Nausea/Vomiting Presence: Nauseated Diarrhea Presence: No - Allergies/Home Medications Allergies/Adverse Reactions: Allergies Allergy/AdvReac Type Severity Reaction Status Date / Time pantoprazole [From Protonix] Allergy Severe Anaphylatic Verified 09/04/19 17:32 Shock pyridoxine Allergy Severe Hives Verified 09/04/19 17:32 shellfish derived Allergy Severe Swelling Verified 09/04/19 17:32 Of Face,Lips,& Throat shrimp AdvReac Intermediate Itching Verified 09/04/19 17:32 SALT WATER SEAFOOD Allergy Severe Swelling Uncoded 09/04/19 17:32 Of Face,Lips,& Throat blueberries Allergy Intermediate sweilling Uncoded 09/04/19 17:32 ,itching salamidacetic acid Allergy Swelling Uncoded 09/04/19 17:32 PMH/Surg Hx/FS Hx/Imm Hx Previously Healthy: Yes Respiratory History: Asthma - Surgical History Surgical History: None - Family History Known Family History: Positive: Diabetes - Mother, Respiratory Disease - Asthma (mother) Negative: Cardiac Disease, Hypertension - Social History Alcohol Use: None Substance Use Type: None Smoking Status (MU): Never Smoked Tobacco Review of Systems All Other Systems Reviewed And Are Negative: Yes Gastrointestinal: Positive: Vomiting - Patient only vomits 2 or 3 times a day. She had a positive procedure test at home., Nausea Genitourinary: Positive: Other - Patient states her urine has a strong smell to it but she denies any symptoms of urinary tract infection. Is Patient Immunocompromised?: No Physical Exam Triage Information Reviewed: Yes Appearance: Well-Appearing, No Pain Distress, Obese Vital Signs: Initial Vital Signs Temp 97.3 F 09/04/19 17:28 Pulse 77 09/04/19 17:28 Resp 12 09/04/19 17:28 BP 135/61 09/04/19 17:28 Pulse Ox 100 09/04/19 17:28 Vital Signs Reviewed: Yes Eyes: Positive: Conjunctiva Clear ENT: Positive: Hearing grossly normal, Pharynx normal, TMs normal, Uvula midline Neck: Positive: Supple, Nontender, No Lymphadenopathy Respiratory: Positive: Lungs clear, Normal breath sounds, No respiratory distress, No accessory muscle use Cardiovascular: Positive: RRR, No Murmur, Pulses Normal, Brisk Capillary Refill Abdomen Description: Positive: Nontender, No Organomegaly, Soft. Negative: CVA Tenderness (R), CVA Tenderness (L), Hepatomegaly, Splenomegaly Bowel Sounds: Positive: Present Musculoskeletal Exam: Normal Neurological Exam: Normal Psychological Exam: Normal Skin Exam: Normal Naus/Vom/Diarrhea Course/Dx - Course Course Of Treatment: Urinalysis was positive for nitrites therefore it will be sent for culture. Urine test was positive. The patient was given a prescription for Zofran 4 mg every 8 hours as needed for nausea. She has recently moved from [place] but her mother, with whom she lives, has an [facility] [employer] physician in [place] where she can go for her OB appointments. She was encouraged to call tomorrow and make an appointment. - Differential Dx/Diagnosis Provider Diagnosis: Nausea & vomiting, Positive test Is Visit Related: Yes Condition At Discharge: Good Discharge ED - Sign-Out/Discharge Documenting (check all that apply): Patient Departure All imaging exams completed and their final reports reviewed: No Studies - Discharge Plan Condition: Good Disposition: HOME Prescriptions: Ondansetron ODT TAB* [Zofran 4 MG Odt TAB*] 4 mg PO Q8H PRN #20 tab.odt PRN Reason: Nausea Patient Education Materials: Nausea and Vomiting in (ED) Referrals: No Primary Care Phys,NOPCP [Primary Care Provider] - Additional Instructions: Your urine test was positive. Follow-up with your [facility] physician for further care. - Billing Disposition and Condition Condition: GOOD Disposition: Home
--- NOTE | 2019-09-06 16:25 | UC ---
- Progress Note Progress Note: Urine culture from September 04, 2019 comes back as Escherichia coli greater than 100,000. Patient is not on an antibiotic at this time and she is . Nursing to call patient inform the patient of the results and that I have called in a prescription for Macrobid 100 mg by mouth twice a day for 7 days. Course/Dx - Diagnoses Provider Diagnoses: Nausea & vomiting, Positive test Is Visit Related: Yes Discharge ED - Sign-Out/Discharge Documenting (check all that apply): Patient Departure All imaging exams completed and their final reports reviewed: No Studies - Discharge Plan Condition: Good Disposition: HOME Prescriptions: Nitrofurantoin Monohyd/M-Cryst [Macrobid 100 mg Capsule] 100 mg PO BID #14 cap Patient Education Materials: Nausea and Vomiting in (ED) Referrals: No Primary Care Phys,NOPCP [Primary Care Provider] - Additional Instructions: Your urine test was positive. Follow-up with your [facility] physician for further care. - Billing Disposition and Condition Condition: GOOD Disposition: Home
--- NOTE | 2019-09-07 17:46 | UC ---
- Progress Note Progress Note: Progress note by Dr. Magdalena Coto indicate he sent RX for Macrobid on 09/06/19. Pt was also seen in [place] ER and given RX for Cephalexin at D/c form Dr. Chaney. Please call pt and ask if taking antibiotic and what one. either is fine but to take only one not both. Course/Dx - Diagnoses Provider Diagnoses: Nausea & vomiting, Positive test Is Visit Related: Yes Discharge ED - Sign-Out/Discharge Documenting (check all that apply): Post-Discharge Follow Up All imaging exams completed and their final reports reviewed: No Studies - Discharge Plan Condition: Good Disposition: HOME Prescriptions: Nitrofurantoin Monohyd/M-Cryst [Macrobid 100 mg Capsule] 100 mg PO BID #14 cap Patient Education Materials: Nausea and Vomiting in (ED) Referrals: No Primary Care Phys,NOPCP [Primary Care Provider] - Additional Instructions: Your urine test was positive. Follow-up with your [facility] physician for further care. - Billing Disposition and Condition Condition: GOOD Disposition: Home
== END 2019-09-04 18:32 | disposition home or self-care (01) ==
LOC: UCEAST 17:20
DX: O21.9 Vomiting of pregnancy, unspecified (principal); O99.519 Diseases of the respiratory system complicating pregnancy, unspecified trimester; J45.909 Unspecified asthma, uncomplicated; B96.20 Unspecified Escherichia coli [E. coli] as the cause of diseases classified elsewhere; Z88.1 Allergy status to other antibiotic agents; Z91.013 Allergy to seafood; Z91.018 Allergy to other foods; Z88.8 Allergy status to other drugs, medicaments and biological substances
CPT/HCPCS: 81003; 84702; 87077; 87086; 87186; 99212; G0463

== ENCOUNTER 2019-09-06 11:30 | Emergency (ER) | payer MEDICAID ==
--- NOTE | 2019-09-06 11:56 | ED ---
Abdominal Pain/Female - HPI Summary HPI Summary: 29 year old F presenting to [facility] accompanied by parents complains of sharp suprapubic and mild LLQ pain that started yesterday which has now become cramping since today. No vaginal bleeding, vaginal discharge, fever. Never had these symptoms before. The patient rates the pain 6/10 in severity. Symptoms aggravated by nothing. Symptoms alleviated by nothing. Patient states she is . A0. States she recently found out she was , has not yet had US done. LNMP 07/06/19. Patient is 8 weeks 6 days by LNMP. PMHx: asthma. Denies surgical hx. - History of Current Complaint Chief Complaint: EDAbdPain Stated Complaint: PELVIC PAIN 3 MONTHS PREG Time Seen by Provider: 09/06/19 11:41 Hx Obtained From: Patient Hx Last Menstrual Period: 07/06/19 Onset/Duration: Lasting Days - 1, Still Present Timing: Constant Severity Currently: Moderate Pain Intensity: 6 Pain Scale Used: 0-10 Numeric Location: Discrete At: LLQ Character: Sharp Aggravating Factor(s): Other: - nothing Alleviating Factor(s): Nothing Associated Signs and Symptoms: Positive: Negative - vaginal bleeding, vaginal discharge, fever Allergies/Adverse Reactions: Allergies Allergy/AdvReac Type Severity Reaction Status Date / Time pantoprazole [From Protonix] Allergy Severe Anaphylatic Verified 09/06/19 11:36 Shock pyridoxine Allergy Severe Hives Verified 09/06/19 11:36 shellfish derived Allergy Severe Swelling Verified 09/06/19 11:36 Of Face,Lips,& Throat shrimp AdvReac Intermediate Itching Verified 09/06/19 11:36 SALT WATER SEAFOOD Allergy Severe Swelling Uncoded 09/06/19 11:36 Of Face,Lips,& Throat blueberries Allergy Intermediate sweilling Uncoded 09/06/19 11:36 ,itching salamidacetic acid Allergy Swelling Uncoded 09/06/19 11:36 PMH/Surg Hx/FS Hx/Imm Hx Endocrine/Hematology History: Denies: Hx Diabetes, Hx Thyroid Disease Cardiovascular History: Denies: Hx Hypertension, Hx Pacemaker/ICD Respiratory History: Reports: Hx Asthma Denies: Hx Chronic Obstructive Pulmonary Disease (COPD) GI History: Denies: Hx Ulcer Comment Only: Other GI Disorders - pt obese, 5 4" and 250 lbs. History: Denies: Hx Renal Disease Sensory History: Denies: Hx Hearing Aid Psychiatric History: Denies: Hx Panic Disorder - Surgical History Surgery Procedure, Year, and Place: None - Immunization History Date of Tetanus Vaccine: unk Date of Influenza Vaccine: utd Infectious Disease History: No Infectious Disease History: Denies: Hx Clostridium Difficile, Hx Hepatitis, Hx Human Immunodeficiency Virus (HIV), Hx of Known/Suspected MRSA, Hx Shingles, Hx Tuberculosis, Hx Known/ Suspected VRE, Hx Known/Suspected VRSA, History Other Infectious Disease, Traveled Outside the [place] in Last 30 Days - Family History Known Family History: Positive: Diabetes - Mother, Respiratory Disease - Asthma (mother) Negative: Cardiac Disease, Hypertension - Social History Alcohol Use: None Hx Substance Use: No Substance Use Type: Reports: None Hx Tobacco Use: No Smoking Status (MU): Never Smoked Tobacco Review of Systems Negative: Fever Positive: Abdominal Pain - LLQ Genitourinary: Negative - vaginal bleeding Negative: discharge All Other Systems Reviewed And Are Negative: Yes Physical Exam - Summary Physical Exam Summary: Constitutional: Well-developed, Well-nourished, Alert. (-) Distressed Skin: Warm, Dry HENT: Normocephalic; Atraumatic Eyes: Conjunctiva normal Neck: Musculoskeletal ROM normal neck. (-) JVD, (-) Stridor, (-) Nuchal rigidity Cardio: Rhythm regular, rate normal, Heart sounds normal; Intact distal pulses; Radial pulses are 2+ and symmetric. (-) Murmur Pulmonary/Chest wall: Effort normal. (-) Respiratory distress, (-) Wheezes, (-) Rales Abd: Suprapubic tenderness, no LLQ tenderness. No guarding or rebound. Musculoskeletal: (-) Edema Lymph: (-) Cervical adenopathy Neuro: Alert, Oriented x3 Psych: Mood and affect Normal Triage Information Reviewed: Yes Vital Signs On Initial Exam: Initial Vitals Temp Pulse Resp BP Pulse Ox 99.0 F 78 16 145/86 98 09/06/19 11:31 09/06/19 11:31 09/06/19 11:31 09/06/19 11:31 09/06/19 11:31 Vital Signs Reviewed: Yes Procedures - Sedation Patient Received Moderate/Deep Sedation with Procedure: No Diagnostics - Vital Signs Vital Signs Temp Pulse Resp BP Pulse Ox 09/06/19 11:31 99.0 F 78 16 145/86 98 - Laboratory Result Diagrams: 09/06/19 12:41 09/06/19 12:41 Lab Statement: Any lab studies that have been ordered have been reviewed, and results considered in the medical decision making process. - Ultrasound Transvaginal Ultrasound Interpretation Completed By: Radiologist Summary of Ultrasound Findings: Single intrauterine gestation with a crown-rump length of 0.8 cm corresponding to gestational age of 6 weeks 6 days. heart activity at 133 bpm. Left adnexal complex fluid collection versus left hydrosalpinx is noted. Small to moderate amount of free fluid is noted in the cul-de-sac. ED physician has reviewed this report. Re-Evaluation - Re-Evaluation First Eval Re-Evaluation Time: 01:15 Comment: UA w 3+ LE, given keflex here and dc w 7 days QID Second Eval Re-Evaluation Time: 14:33 Change: Improved Comment: feeling better. awaiting US results Third Eval Re-Evaluation Time: 15:15 Comment: informed of US results including free fluid and hydrosalpinx. understands discharge instructions, need for repeat US and return for worsening pain Abdominal Pain Fem Course/Dx - Course Course Of Treatment: 29 y/o F at 8w6d by LMP p/w lower abdominal cramping. - abd soft, no guarding. Will check labs, HCG, UA. - check US as she doesnt have one. No vaginal bleeding or discharge. 15:00 US w free fluid in cul de sac, L hydrosalpinx. Possible ruptured cyst causing free fluid. +IUP on US, low suspicion for ectopic/heterotopic . Will d/w OB - Diagnoses Provider Diagnoses: Intrauterine , UTI (urinary tract infection) - Provider Notifications Discussed Care Of Patient With: Gustavo Blanton JR Time Discussed With Above Provider: 15:03 Instructed by Provider To: Other - Dr. Blanton, OBGYN, reviewed the imaging, states it c/w hydrosalpinx, recommends repeat scan in several weeks to follow up free fluid. Patient can f/u w his office. Discharge ED - Sign-Out/Discharge Documenting (check all that apply): Patient Departure - Discharge - Discharge Plan Condition: Stable Disposition: HOME Prescriptions: Cephalexin CAP* [Keflex CAP*] 500 mg PO QID 7 Days #28 cap Patient Education Materials: (ED), Urinary Tract Infection in (ED) Referrals: Gustavo Blanton JR, DO [Doctor of Osteopathy] - Additional Instructions: You were seen in the emergency department for abdominal pain. Your ultrasound showed an intrauterine at 6 weeks and also swelling if your left ovary. You need a repeat ultrasound in several weeks. Your labs showed a UTI please take keflex for 7 days. If any studies were not completed at the time of discharge you will be called with the relevant results. Please follow up with your primary care doctor in next 2-3 days and return to emergency department for worsening pain, abdominal cavazos, bleeding, or concerning symptoms. It was a pleasure taking care of you today. - Billing Disposition and Condition Condition: STABLE Disposition: Home - Attestation Statements Document Initiated by Rafael: Yes Documenting Scribe: Maggie Silva Provider For Whom Rafael is Documenting (Include Credential): Omi Buck MD Scribe Attestation: IMaggie, scribed for Omi Bukc MD on 09/06/19 at 1545. Scribe Documentation Reviewed: Yes Provider Attestation: The documentation as recorded by the Maggie mccoy accurately reflects the service I personally performed and the decisions made by , Omi Buck MD Status of Scribricky Document: Viewed
[2019-09-06 12:48] LABS: ABS Eosinophils 0.1 10^3/ul (0-0.6); ABS Monocytes 0.5 10^3/ul (0-0.8); ABS Neutrophils 4.9 10^3/ul (1.5-7.7); Eosinophil % 1.6 %; Hematocrit 32 % (35-47); Hemoglobin 10.7 g/dL (12.0-16.0); Lymphocyte % 26.3 %; Mean Corpuscular HGB Conc 33 g/dL (31-36); Mean Corpuscular Hemoglobin 26 pg (27-31); Mean Corpuscular Volume 79 fL (80-97); Nucleated Red Blood Cells % 0.1; Platelet Count 241 10^3/uL (150-450); Red Blood Count 4.09 10^6 /uL (3.70-4.87); Red Cell Distribution Width 15 % (10-15); White Blood Count 7.5 10^3/uL (3.5-10.8)
[2019-09-06 13:00] LABS: Urine Appearance Cloudy; Urine Bacteria 1+ (Absent); Urine Bilirubin Negative (Negative); Urine Blood Negative (Negative); Urine Color Yellow; Urine Glucose Negative (Negative); Urine Ketones Negative (Negative); Urine Nitrite Negative (Negative); Urine Protein Negative (Negative); Urine Red Blood Cell Absent (Absent); Urine Specific Gravity 1.011 (1.010-1.030); Urine Squamous Epithelial Cell Present (Absent); Urine Urobilinogen Negative (Negative); Urine White Blood Cell 1+(6-10/hpf) (Absent)
[2019-09-06 13:14] LABS: Albumin 3.3 g/dL (3.2-5.2); Albumin/Globulin Ratio 1.1 (1-3); BUN/Creatinine Ratio 12.2 (8-20); Calcium 8.7 mg/dL (8.6-10.3); EGFR African American 90.2 (>60); EGFR Non-African American 74.6 (>60); Potassium 3.8 mmol/L (3.5-5.0); Total Bilirubin 0.2 mg/dL (0.2-1.0); Total Protein 6.3 g/dL (6.4-8.9)
[2019-09-06] MEDS ORDERED: Cephalexin CAP* 500 MG PO ONE (13:17)
[2019-09-06 15:29] VITALS: BP 122/57
--- NOTE | 2019-09-07 15:55 | UC ---
- Progress Note Progress Note: C & S indicates sensitivity to other cephalosporins so, presumed sensitivity to cephalexin. Please call to make sure pt is responding clinically. Course/Dx - Diagnoses Provider Diagnoses: Intrauterine , UTI (urinary tract infection) - Provider Notifications Time Discussed With Above Provider: 15:03 Instructed by Provider To: Other - NEFTALI Mayo, reviewed the imaging, states it c/w hydrosalpinx, recommends repeat scan in several weeks to follow up free fluid. Patient can f/u w his office. Discharge ED - Sign-Out/Discharge Documenting (check all that apply): Post-Discharge Follow Up - Discharge Plan Condition: Stable Disposition: HOME Prescriptions: Cephalexin CAP* [Keflex CAP*] 500 mg PO QID 7 Days #28 cap Patient Education Materials: (ED), Urinary Tract Infection in (ED) Referrals: Gustavo Blanton JR, DO [Doctor of Osteopathy] - Additional Instructions: You were seen in the emergency department for abdominal pain. Your ultrasound showed an intrauterine at 6 weeks and also swelling if your left ovary. You need a repeat ultrasound in several weeks. Your labs showed a UTI please take keflex for 7 days. If any studies were not completed at the time of discharge you will be called with the relevant results. Please follow up with your primary care doctor in next 2-3 days and return to emergency department for worsening pain, abdominal cavazos, bleeding, or concerning symptoms. It was a pleasure taking care of you today. - Billing Disposition and Condition Condition: STABLE Disposition: Home
--- NOTE | 2019-09-08 14:09 | ED ---
Imaging and Labs Follow Up Follow Up Type: Labs/Cultures Labs/Culture Result: +gardnerella Patient Communication/Plan: Vaginal culture positive for gardnerella. Pt. seen for pelvic pain and is currently . Attempted to call pt. today at [phone] with no answer or voicemail. Rx for flagyl 250 TID x 7 days sent to pharmacy. Will send letter. Provider Diagnoses: Intrauterine , UTI (urinary tract infection)
== END 2019-09-06 15:28 | disposition home or self-care (01) ==
LOC: ED 11:30
DX: O23.41 Unspecified infection of urinary tract in pregnancy, first trimester (principal); Z3A.08 8 weeks gestation of pregnancy; Z88.8 Allergy status to other drugs, medicaments and biological substances
CPT/HCPCS: 36415; 76817; 80053; 81003; 81015; 84702; 85025; 87077; 87086; 87186; 87480; 87510; 87660; 99283; A9270-GY

== ENCOUNTER 2019-10-02 11:12 | Emergency (ER) | payer MEDICAID ==
--- NOTE | 2019-10-02 11:40 | ED ---
Back Pain - HPI Summary HPI Summary: 29-year-old -[place] female who is approximately 3 months gestation presents to the emergency department today with a chief complaint of low back pain. Her pain began yesterday and is worse when she woke up this morning. She states the pain is 6 out of 10 with no radiculopathy and is made worse with laying down. She also endorses being more short of breath recently. She does not recall any specific event which led to her pain and denies recent trauma. Patient denies vaginal bleeding or abdominal pain. Patient denies history of past miscarriage. Patient does not have calf pain, denies recent surgery, denies recent travel. Patient also says she has burning with urination and is "always getting UTIs" patient is afebrile. She states she's been taking 2 Tylenol at today for her back pain. The patient denies chest pain , abdominal pain, fever. - History of Current Complaint Chief Complaint: EDBackInjuryPain Stated Complaint: BACK PAIN/ 3 1/2 MONTHS PREG PER PT Time Seen by Provider: 10/02/19 11:29 Hx Obtained From: Patient Hx Last Menstrual Period: 07/06/19 Onset/Duration: Sudden Onset, Lasting Days - Pain began last night Onset/Duration: Started Days Ago Timing: Constant Back Pain Location: Is Discrete @ - Low back muscles Severity Initially: Mild Severity Currently: Moderate Pain Intensity: 7 Pain Scale Used: 0-10 Numeric Character: Aching Aggravating Symptom(s): Other - "Going to sleep" Alleviating Symptom(s): Nothing Associated Signs And Symptoms: Positive: Negative - Allergies/Home Medications Allergies/Adverse Reactions: Allergies Allergy/AdvReac Type Severity Reaction Status Date / Time pantoprazole [From Protonix] Allergy Severe Anaphylatic Verified 10/02/19 11:18 Shock pyridoxine Allergy Severe Hives Verified 10/02/19 11:18 shellfish derived Allergy Severe Swelling Verified 10/02/19 11:18 Of Face,Lips,& Throat shrimp AdvReac Intermediate Itching Verified 10/02/19 11:18 SALT WATER SEAFOOD Allergy Severe Swelling Uncoded 09/06/19 11:36 Of Face,Lips,& Throat blueberries Allergy Intermediate sweilling Uncoded 09/06/19 11:36 ,itching salamidacetic acid Allergy Swelling Uncoded 09/06/19 11:36 PMH/Surg Hx/FS Hx/Imm Hx Endocrine/Hematology History: Denies: Hx Diabetes, Hx Thyroid Disease Cardiovascular History: Denies: Hx Hypertension, Hx Pacemaker/ICD Respiratory History: Reports: Hx Asthma Denies: Hx Chronic Obstructive Pulmonary Disease (COPD) GI History: Denies: Hx Ulcer Comment Only: Other GI Disorders - pt obese, 5 4" and 250 lbs. History: Denies: Hx Renal Disease Sensory History: Denies: Hx Hearing Aid Psychiatric History: Denies: Hx Panic Disorder - Surgical History Surgery Procedure, Year, and Place: None - Immunization History Date of Tetanus Vaccine: unk Date of Influenza Vaccine: utd Infectious Disease History: No Infectious Disease History: Denies: Hx Clostridium Difficile, Hx Hepatitis, Hx Human Immunodeficiency Virus (HIV), Hx of Known/Suspected MRSA, Hx Shingles, Hx Tuberculosis, Hx Known/ Suspected VRE, Hx Known/Suspected VRSA, History Other Infectious Disease, Traveled Outside the [place] in Last 30 Days - Family History Known Family History: Positive: Diabetes - Mother, Respiratory Disease - Asthma (mother) Negative: Cardiac Disease, Hypertension - Social History Alcohol Use: None Hx Substance Use: No Substance Use Type: Reports: None Hx Tobacco Use: No Smoking Status (MU): Never Smoked Tobacco Review of Systems Positive: Myalgia - low back pain Psychological: Normal All Other Systems Reviewed And Are Negative: Yes Physical Exam Triage Information Reviewed: Yes Vital Signs On Initial Exam: Initial Vitals Temp Pulse Resp BP Pulse Ox 97.8 F 75 16 137/78 99 10/02/19 11:15 10/02/19 11:15 10/02/19 11:15 10/02/19 11:15 10/02/19 11:15 Vital Signs Reviewed: Yes Appearance: Positive: Well-Appearing, No Pain Distress, Well-Nourished, Obese Skin: Positive: Warm, Skin Color Reflects Adequate Perfusion Eyes: Positive: Normal ENT: Positive: Hearing grossly normal Respiratory/Lung Sounds: Positive: Clear to Auscultation, Breath Sounds Present Cardiovascular: Positive: Normal, RRR, S2 Abdomen Description: Positive: Nontender Bowel Sounds: Positive: Present Musculoskeletal: Positive: Pain @ - Lumbar paraspinal muscles bilaterally, Other - No radiculopathy noted, No decreased range of motion or decreased strength. No signs of ecchymosis or erythema to the low back. No spinal tenderness with palpation. Psychiatric: Positive: Normal AVPU Assessment: Alert Procedures - Sedation Patient Received Moderate/Deep Sedation with Procedure: No Diagnostics - Vital Signs Vital Signs Temp Pulse Resp BP Pulse Ox 10/02/19 11:15 97.8 F 75 16 137/78 99 - Laboratory Lab Statement: Any lab studies that have been ordered have been reviewed, and results considered in the medical decision making process. Back Pain Course/Dx - Course Course Of Treatment: Patient was evaluated for low back pain in the emergency department. She was seen and evaluated. A urinalysis was ordered which revealed no signs of UTI. She is discharged with diagnosis of lumbar muscle strain and mechanical back pain. She was told to take Tylenol to control her pain and to follow-up with her OB for further evaluation. She was informed that the application of ice and heat may improve her symptoms. She was informed immobilization can increase pain from muscle strain. She was told that if she develops any new symptoms or worsening symptoms to return to the emergency Department immediately. She agrees this plan. - Diagnoses Differential Diagnosis/HQI/PQRI: Positive: Arthritis, Cauda Equina Syndrome, Epidural Abscess, Herniated Disc, Strain Provider Diagnoses: Low back pain Discharge ED - Sign-Out/Discharge Documenting (check all that apply): Patient Departure - Discharge Plan Condition: Stable Disposition: HOME Patient Education Materials: Low Back Strain (ED) Referrals: Rosaura Nguyen MD [Medical Doctor] - No Primary Care Phys,NOPCP [Primary Care Provider] - Additional Instructions: You were evaluated in the emergency department today for low back strain. Continue taking Tylenol as directed on the bottle for pain and decrease immobilization is much as possible. Please follow-up with your OB in the next 2 -3 days for further evaluation. you may apply ice or heat to the low back for alleviation of symptoms. If your symptoms worsen or you develop any new symptoms please return to the emergency department immediately - Billing Disposition and Condition Condition: STABLE Disposition: Home
[2019-10-02 12:20] LABS: Urine Appearance Cloudy; Urine Bacteria Absent (Absent); Urine Bilirubin Negative (Negative); Urine Blood Negative (Negative); Urine Color Yellow; Urine Glucose Negative (Negative); Urine Ketones Negative (Negative); Urine Nitrite Negative (Negative); Urine Protein Negative (Negative); Urine Red Blood Cell Absent (Absent); Urine Specific Gravity 1.017 (1.010-1.030); Urine Squamous Epithelial Cell Present (Absent); Urine Urobilinogen Negative (Negative); Urine White Blood Cell Trace(0-5/hpf) (Absent)
[2019-10-02 12:41] VITALS: BP 141/69
== END 2019-10-02 12:40 | disposition home or self-care (01) ==
LOC: ED 11:12
DX: M54.5 Low back pain (principal); J45.909 Unspecified asthma, uncomplicated; Z88.8 Allergy status to other drugs, medicaments and biological substances
CPT/HCPCS: 81003; 81015; 87086; 99282

== ENCOUNTER 2019-10-08 10:02 | Emergency (ER) | payer MEDICAID ==
[2019-10-08] MEDS ORDERED: Ondansetron ODT TAB* 4 MG SL ONE (10:31)
[2019-10-08 10:55] LABS: ABS Eosinophils 0.1 10^3/ul (0-0.6); ABS Lymphocytes 1.7 10^3/ul (1.0-4.8); ABS Monocytes 0.6 10^3/ul (0-0.8); ABS Neutrophils 4.7 10^3/ul (1.5-7.7); Eosinophil % 1.9 %; Hematocrit 35 % (35-47); Hemoglobin 11.7 g/dL (12.0-16.0); Lymphocyte % 23.1 %; Mean Corpuscular HGB Conc 34 g/dL (31-36); Mean Corpuscular Hemoglobin 27 pg (27-31); Mean Corpuscular Volume 79 fL (80-97); Mean Platelet Volume 6.7 fL (7.4-10.4); Platelet Count 263 10^3/uL (150-450); Red Blood Count 4.39 10^6 /uL (3.70-4.87); Red Cell Distribution Width 15 % (10-15); White Blood Count 7.2 10^3/uL (3.5-10.8)
[2019-10-08] MEDS ORDERED: Acetaminophen TAB* 325 MG PO ONE (11:07)
[2019-10-08 11:11] LABS: Albumin 3.7 g/dL (3.2-5.2); BUN/Creatinine Ratio 12.4 (8-20); Calcium 9.2 mg/dL (8.6-10.3); EGFR African American 91.4 (>60); EGFR Non-African American 75.5 (>60); Globulin 3.7 g/dL (2-4); Potassium 4.1 mmol/L (3.5-5.0); Total Bilirubin 0.3 mg/dL (0.2-1.0); Total Protein 7.4 g/dL (6.4-8.9)
[2019-10-08 12:03] VITALS: BP 158/72
--- NOTE | 2019-10-08 12:19 | ED ---
- HPI Summary HPI Summary: This patient is 29-year-old female who is 11 weeks presenting to the ED with left-sided lower quadrant pain. She states she had a ultrasound recently which showed a left ovarian cyst. Patient states she has had pain for the past few weeks, intermittent develop worsening pain this morning. She rates her pain a 5/10 with associated nausea. Denies any vomiting. She states Dr. Plunkett sent her for further evaluation. She took tylenol at home without relief. She also has been using heat. Last US: Single intrauterine gestation with a crown-rump length 0.8 cm corresponding to gestational age of 6 weeks and 6 days. heart activity 133 bpm. Left adnexal complex fluid collection versus left hydrosalpinx is noted. Small to moderate amount of free fluid is noted in the cul-de-sac. - History of Current Complaint Chief Complaint: EDOBProblems Stated Complaint: LEFT SIDE ABD PAIN, 11 WEEKS PREG Time Seen by Provider: 10/08/19 10:30 Hx Obtained From: Patient Chief Complaint: Other: - llq pain Onset/Duration: Started Days Ago Timing: Constant Pain Intensity: 0 Character: None Associated Signs and Symptoms: Positive: Negative - Assessment Hx Now: No - Allergies/Home Medications Allergies/Adverse Reactions: Allergies Allergy/AdvReac Type Severity Reaction Status Date / Time pantoprazole [From Protonix] Allergy Severe Anaphylatic Verified 10/02/19 11:18 Shock pyridoxine Allergy Severe Hives Verified 10/02/19 11:18 shellfish derived Allergy Severe Swelling Verified 10/02/19 11:18 Of Face,Lips,& Throat shrimp AdvReac Intermediate Itching Verified 10/02/19 11:18 SALT WATER SEAFOOD Allergy Severe Swelling Uncoded 09/06/19 11:36 Of Face,Lips,& Throat blueberries Allergy Intermediate sweilling Uncoded 09/06/19 11:36 ,itching salamidacetic acid Allergy Swelling Uncoded 09/06/19 11:36 PMH/Surg Hx/FS Hx/Imm Hx Previously Healthy: Yes Endocrine/Hematology History: Denies: Hx Diabetes, Hx Thyroid Disease Cardiovascular History: Denies: Hx Hypertension, Hx Pacemaker/ICD Respiratory History: Reports: Hx Asthma Denies: Hx Chronic Obstructive Pulmonary Disease (COPD) GI History: Denies: Hx Ulcer Comment Only: Other GI Disorders - pt obese, 5 4" and 250 lbs. History: Denies: Hx Renal Disease Sensory History: Denies: Hx Hearing Aid Psychiatric History: Denies: Hx Panic Disorder - Surgical History Surgery Procedure, Year, and Place: None - Immunization History Date of Tetanus Vaccine: unk Date of Influenza Vaccine: utd Hx Pertussis Vaccination: No Immunizations Up to Date: Yes Infectious Disease History: No Infectious Disease History: Denies: Hx Clostridium Difficile, Hx Hepatitis, Hx Human Immunodeficiency Virus (HIV), Hx of Known/Suspected MRSA, Hx Shingles, Hx Tuberculosis, Hx Known/ Suspected VRE, Hx Known/Suspected VRSA, History Other Infectious Disease, Traveled Outside the [place] in Last 30 Days - Family History Known Family History: Positive: Diabetes - Mother, Respiratory Disease - Asthma (mother) Negative: Cardiac Disease, Hypertension - Social History Occupation: Employed Part-time Lives: With Family Alcohol Use: None Hx Substance Use: No Substance Use Type: Reports: None Hx Tobacco Use: No Smoking Status (MU): Never Smoked Tobacco Review of Systems Negative: Fever, Chills, Fatigue, Skin Diaphoresis Negative: Palpitations, Chest Pain Negative: Shortness Of Breath, Cough Positive: Abdominal Pain - left lower quadrant, Nausea. Negative: Vomiting, Diarrhea Genitourinary: Negative Positive: no symptoms reported, see HPI Negative: Arthralgia, Myalgia Skin: Negative Neurological: Negative All Other Systems Reviewed And Are Negative: Yes Physical Exam - Physical Exam Triage Information Reviewed: Yes Vital Signs Reviewed: Yes Appearance: Positive: Well-Appearing, Well-Nourished Skin: Positive: Warm, Skin Color Reflects Adequate Perfusion Head/Face: Positive: Normal Head/Face Inspection Eyes: Positive: EOMI, MAEGAN, Conjunctiva Clear Neck: Positive: Supple, No Lymphadenopathy Respiratory/Lung Sounds: Positive: Clear to Auscultation, Breath Sounds Present Cardiovascular: Positive: RRR, Pulses are Symmetrical in both Upper and Lower Extremities Abdomen Description: Positive: Soft, Other: - tenderness to the LLQ. Negative: CVA Tenderness (R), CVA Tenderness (L), Distended, Guarding Musculoskeletal: Positive: Strength/ROM Intact Neurological: Positive: Sensory/Motor Intact, Alert, Oriented to Person Place, Time, Speech Normal Psychiatric: Positive: Normal, Affect/Mood Appropriate AVPU Assessment: Alert Procedures - Sedation Patient Received Moderate/Deep Sedation with Procedure: No Diagnostics - Vital Signs Vital Signs Temp Pulse Resp BP Pulse Ox 11/17/19 12:02 98.3 F 85 16 158/72 98 10/08/19 10:04 98.3 F 86 16 162/74 98 - Laboratory Lab Results: Lab Results 10/08/19 10/08/19 Range/Units 10:49 10:49 WBC 7.2 (3.5-10.8) 10^3/uL RBC 4.39 (3.70-4.87) 10^6 /uL Hgb 11.7 L (12.0-16.0) g/dL Hct 35 (35-47) % MCV 79 L (80-97) fL MCH 27 (27-31) pg MCHC 34 (31-36) g/dL RDW 15 (10-15) % Plt Count 263 (150-450) 10^3/uL MPV 6.7 L (7.4-10.4) fL Neut % (Auto) 66.2 % Lymph % (Auto) 23.1 % [place] % (Auto) 8.2 % Eos % (Auto) 1.9 % Baso % (Auto) 0.6 % Absolute Neuts (auto) 4.7 (1.5-7.7) 10^3/ul Absolute Lymphs (auto) 1.7 (1.0-4.8) 10^3/ul Absolute Monos (auto) 0.6 (0-0.8) 10^3/ul Absolute Eos (auto) 0.1 (0-0.6) 10^3/ul Absolute Basos (auto) 0.0 (0-0.2) 10^3/ul Absolute Nucleated RBC 0.0 10^3/ul Nucleated RBC % 0.0 Sodium 135 (135-145) mmol/L Potassium 4.1 (3.5-5.0) mmol/L Chloride 103 (101-111) mmol/L Carbon Dioxide 26 (22-32) mmol/L Anion Gap 6 (2-11) mmol/L BUN 11 (6-24) mg/dL Creatinine 0.89 (0.51-0.95) mg/dL Est GFR ( Amer) 91.4 (>60) Est GFR (Non-Af Amer) 75.5 (>60) BUN/Creatinine Ratio 12.4 (8-20) Glucose 78 (70-100) mg/dL Calcium 9.2 (8.6-10.3) mg/dL Total Bilirubin 0.30 (0.2-1.0) mg/dL AST 9 L (13-39) U/L ALT 8 (7-52) U/L Alkaline Phosphatase 63 (34-104) U/L Total Protein 7.4 (6.4-8.9) g/dL Albumin 3.7 (3.2-5.2) g/dL Globulin 3.7 (2-4) g/dL Albumin/Globulin Ratio 1.0 (1-3) Result Diagrams: 10/08/19 10:49 10/08/19 10:49 Lab Statement: Any lab studies that have been ordered have been reviewed, and results considered in the medical decision making process. Course/Dx - Course Course Of Treatment: Patient is 11 weeks presenting to the ED with left -sided lower quadrant pain as well as nausea. She states she does not have medications at home for pain or nausea. She has been taking Tylenol without relief. On physical examination, patient does not appear to be in distress. There is tenderness to the left lower quadrant with no tenderness to the right lower quadrant. Negative Hogan sign. Vital signs are stable. Lungs CTA, RRR. Labs obtained which are WNL. Discussed findings with the patient. This patient recently had an ultrasound completed which showed an intrauterine , ectopic is not on differential, however d/t worsening pain, tylenol and zofran given in the ED. on reexamination, patient states she is feeling better. She is currently rating her pain a 1/10, better with heat and Tylenol at this time. She is also denying any nausea at this time. As patient is feeling better, ovarian torsion less likely. Also, pt has been c/o this pain for at least 1 week. No vaginal bleeding or discharge. No urinary symptoms. Discussed with patient and I will send her home with Earnest as this is safe in and she will follow-up with Dr. Plunkett. She will call provider tomorrow. - Differential Diagnosis/HQI/PQRI: Other: - round ligament pain, abd pain, nausea , ovarian cyst pain, ovarian torsion - Diagnoses Provider Diagnoses: Ovarian cyst Discharge ED - Sign-Out/Discharge Documenting (check all that apply): Patient Departure - Discharge Plan Condition: Stable Disposition: HOME Prescriptions: Metoclopramide TAB* [Reglan TAB*] 10 mg PO Q6H PRN #20 tab PRN Reason: Nausea Referrals: Enrique Plunkett MD [Primary Care Provider] - Additional Instructions: Please call Dr. Plunkett tomorrow for follow up Tylenol 650mg three times daily Moist heat to the area Reglan up to four times daily as needed for nausea - Billing Disposition and Condition Condition: STABLE Disposition: Home
== END 2019-10-08 12:02 | disposition home or self-care (01) ==
LOC: ED 10:02
DX: O34.81 Maternal care for other abnormalities of pelvic organs, first trimester (principal); N83.202 Unspecified ovarian cyst, left side; R11.0 Nausea; Z3A.11 11 weeks gestation of pregnancy; Z91.013 Allergy to seafood; Z88.8 Allergy status to other drugs, medicaments and biological substances; Z91.018 Allergy to other foods
CPT/HCPCS: 36415; 80053; 85025; 99282; A9270-GY

== ENCOUNTER 2019-11-08 19:10 | Emergency (ER) | payer MEDICAID ==
[2019-11-08] MEDS ORDERED: Ondansetron TAB* 4 MG PO ONE (19:52)
--- NOTE | 2019-11-08 20:01 | ED ---
Abdominal Pain/Female - HPI Summary HPI Summary: 29-year-old 15 week gestation -[place] female presents to emergency department today complaining of lower abdominal pain which began yesterday which she describes as a 4 out of 10 episodic cramping feeling. Patient denies past miscarriages/abortions, vaginal bleeding, recent trauma, recent recreational drug use/alcohol use/smoking, fevers. Patient states she is not currently sexually active. Patient dorsal associated nausea and vomiting. Patient was last seen by her garage laborer one week ago and she said everything was normal. Patient denies fever, chest pain, shortness of breath, rash, headache, swelling, tremor. - History of Current Complaint Chief Complaint: EDAbdPain Stated Complaint: 15 WKS PREG/GROIN PAIN PER PT Time Seen by Provider: 11/08/19 19:45 Hx Obtained From: Patient Hx Last Menstrual Period: 07/06/19 ?: Yes Onset/Duration: Gradual Onset, Lasting Days Timing: Constant Severity Initially: Moderate Severity Currently: Moderate Pain Intensity: 7 Pain Scale Used: 0-10 Numeric Location: Suprapubic Radiates: No Character: Cramping Aggravating Factor(s): Movement Alleviating Factor(s): Position Associated Signs and Symptoms: Positive: Nausea, Vomiting. Negative: Diaphoresis, Fever, Cough, Chest Pain, Dizzy, Back Pain, Constipation, Blood in Stool, Urinary Symptoms, Vaginal Bleeding, Diarrhea Allergies/Adverse Reactions: Allergies Allergy/AdvReac Type Severity Reaction Status Date / Time pantoprazole [From Protonix] Allergy Severe Anaphylatic Verified 10/02/19 11:18 Shock pyridoxine Allergy Severe Hives Verified 10/02/19 11:18 shellfish derived Allergy Severe Swelling Verified 10/02/19 11:18 Of Face,Lips,& Throat shrimp AdvReac Intermediate Itching Verified 10/02/19 11:18 SALT WATER SEAFOOD Allergy Severe Swelling Uncoded 09/06/19 11:36 Of Face,Lips,& Throat blueberries Allergy Intermediate sweilling Uncoded 09/06/19 11:36 ,itching salamidacetic acid Allergy Swelling Uncoded 09/06/19 11:36 Home Medications: Home Medications Cholecalciferol (Vitamin D3) [Vitamin D3] 2,000 unit PO DAILY 11/08/19 [History Confirmed 11/08/19] Pnv No.95/Ferrous Fum/Folic AC [ and Iron] 1 tab PO DAILY 11/08/19 [ History Confirmed 11/08/19] PMH/Surg Hx/FS Hx/Imm Hx Endocrine/Hematology History: Denies: Hx Diabetes, Hx Thyroid Disease Cardiovascular History: Denies: Hx Hypertension, Hx Pacemaker/ICD Respiratory History: Reports: Hx Asthma Denies: Hx Chronic Obstructive Pulmonary Disease (COPD) GI History: Denies: Hx Ulcer Comment Only: Other GI Disorders - pt obese, 5 4" and 250 lbs. History: Denies: Hx Renal Disease Sensory History: Denies: Hx Hearing Aid Psychiatric History: Denies: Hx Panic Disorder - Surgical History Surgery Procedure, Year, and Place: None - Immunization History Date of Tetanus Vaccine: unk Date of Influenza Vaccine: utd Infectious Disease History: No Infectious Disease History: Denies: Hx Clostridium Difficile, Hx Hepatitis, Hx Human Immunodeficiency Virus (HIV), Hx of Known/Suspected MRSA, Hx Shingles, Hx Tuberculosis, Hx Known/ Suspected VRE, Hx Known/Suspected VRSA, History Other Infectious Disease, Traveled Outside the [place] in Last 30 Days - Family History Known Family History: Positive: Diabetes - Mother, Respiratory Disease - Asthma (mother) Negative: Cardiac Disease, Hypertension - Social History Alcohol Use: None Hx Substance Use: No Substance Use Type: Reports: None Hx Tobacco Use: No Smoking Status (MU): Never Smoked Tobacco Review of Systems Constitutional: Negative Eyes: Negative ENT: Negative Cardiovascular: Negative Respiratory: Negative Positive: Abdominal Pain, Vomiting, Nausea. Negative: Diarrhea Genitourinary: Negative Musculoskeletal: Negative Skin: Negative Neurological: Negative Psychological: Normal All Other Systems Reviewed And Are Negative: Yes Physical Exam Triage Information Reviewed: Yes Vital Signs On Initial Exam: Initial Vitals Temp Pulse Resp BP Pulse Ox 97.3 F 81 18 138/88 99 11/08/19 19:17 11/08/19 19:17 11/08/19 19:17 11/08/19 19:17 11/08/19 19:17 Vital Signs Reviewed: Yes Appearance: Positive: Well-Appearing, No Pain Distress, Well-Nourished Skin: Positive: Warm, Skin Color Reflects Adequate Perfusion Eyes: Positive: EOMI, MAEGAN ENT: Positive: Hearing grossly normal Respiratory/Lung Sounds: Positive: Clear to Auscultation, Breath Sounds Present Cardiovascular: Positive: RRR, S1, S2 Abdomen Description: Positive: Nontender, Soft. Negative: Distended, Guarding Bowel Sounds: Positive: Present Musculoskeletal: Positive: Strength/ROM Intact Neurological: Positive: Sensory/Motor Intact, Alert, Oriented to Person Place, Time, Normal Gait, Speech Normal Psychiatric: Positive: Normal AVPU Assessment: Alert Procedures - Sedation Patient Received Moderate/Deep Sedation with Procedure: No Diagnostics - Vital Signs Vital Signs Temp Pulse Resp BP Pulse Ox 11/08/19 19:17 97.3 F 81 18 138/88 99 - Laboratory Result Diagrams: 11/08/19 20:05 11/08/19 20:05 Lab Statement: Any lab studies that have been ordered have been reviewed, and results considered in the medical decision making process. Abdominal Pain Fem Course/Dx - Course Course Of Treatment: Patient was evaluated in the emergency department today for abdominal pain. Patient seen and examined her vitals are stable and she is afebrile. Labs returned showing no evidence of leukocytosis or electrolyte abnormalities. Beta hCG Quant shows 24,344 which correlates with gestational age and is not suggestive for molar . Urinalysis negative for UTI. Pelvic ultrasound shows viable intrauterine approximately 16 weeks 2 days gestational age. No evidence of cervical dilation or other signs of possible miscarriage. Patient is to follow-up with her garage laborer or primary care provider in 2-3 days for further evaluation and management of her symptoms. She was told to take Tylenol as needed for pain. - Diagnoses Differential Diagnosis: Positive: Appendicitis, Constipation, Ectopic , Ovarian Cyst, Other - Molar , miscarriage Provider Diagnoses: Abdominal pain Discharge ED - Sign-Out/Discharge Documenting (check all that apply): Patient Departure - Discharge Plan Condition: Stable Disposition: HOME Patient Education Materials: Abdominal Pain in (ED) Referrals: Enrique Plunkett MD [Primary Care Provider] - 3 Days Additional Instructions: You were seen in the emergency department today for abdominal pain. An ultrasound was done which showed that your baby is in good health and there is no evidence of miscarriage or any other pathology requiring intervention at this time. I am not certain what is causing your pain however it does not appear to be life-threatening to yourself or your child. Please take Tylenol as needed for pain. Please follow-up with your garage laborer in 2-3 days for further evaluation and management of your symptoms. Please return to the emergency department immediately if you develop any new or worsening symptoms. - Billing Disposition and Condition Condition: STABLE Disposition: Home - Attestation Statements Provider Attestation: I was available for consult. This patient was seen by the SENDY. The patient was not presented to, seen by, or examined by me. Brandon Serrato MD
[2019-11-08] MEDS ORDERED: Metoclopramide TAB* 10 MG PO ONE (20:02)
[2019-11-08 20:10] LABS: Urine Appearance Cloudy; Urine Bilirubin Negative (Negative); Urine Blood Negative (Negative); Urine Color Yellow; Urine Glucose Negative (Negative); Urine Ketones Negative (Negative); Urine Nitrite Negative (Negative); Urine Protein Negative (Negative); Urine Urobilinogen Negative (Negative)
[2019-11-08 20:14] LABS: ABS Eosinophils 0.1 10^3/ul (0-0.6); ABS Lymphocytes 2.2 10^3/ul (1.0-4.8); ABS Monocytes 0.6 10^3/ul (0-0.8); ABS Neutrophils 5.4 10^3/ul (1.5-7.7); Eosinophil % 1.5 %; Hematocrit 34 % (35-47); Hemoglobin 11.6 g/dL (12.0-16.0); Lymphocyte % 26.4 %; Mean Corpuscular HGB Conc 34 g/dL (31-36); Mean Corpuscular Hemoglobin 28 pg (27-31); Mean Corpuscular Volume 81 fL (80-97); Mean Platelet Volume 7.2 fL (7.4-10.4); Nucleated Red Blood Cells % 0.5; Platelet Count 261 10^3/uL (150-450); Red Blood Count 4.15 10^6 /uL (3.70-4.87); Red Cell Distribution Width 14 % (10-15); White Blood Count 8.3 10^3/uL (3.5-10.8)
[2019-11-08 20:15] LABS: Urine Bacteria Absent (Absent); Urine Red Blood Cell Trace(0-2/hpf) (Absent); Urine Squamous Epithelial Cell Present (Absent); Urine White Blood Cell Trace(0-5/hpf) (Absent)
[2019-11-08] MEDS ORDERED: Acetaminophen TAB* 325 MG PO ONE (20:17)
[2019-11-08 20:35] LABS: Albumin 3.6 g/dL (3.2-5.2); Albumin/Globulin Ratio 1.1 (1-3); BUN/Creatinine Ratio 11.3 (8-20); Calcium 9.2 mg/dL (8.6-10.3); EGFR African American 82.7 (>60); EGFR Non-African American 68.4 (>60); Globulin 3.4 g/dL (2-4); Potassium 3.7 mmol/L (3.5-5.0); Total Bilirubin 0.2 mg/dL (0.2-1.0)
[2019-11-09 00:12] VITALS: BP 140/86
== END 2019-11-09 00:07 | disposition home or self-care (01) ==
LOC: ED 19:10
DX: R10.9 Unspecified abdominal pain (principal); R11.2 Nausea with vomiting, unspecified; Z79.899 Other long term (current) drug therapy
CPT/HCPCS: 36415; 76815; 80053; 81003; 81015; 84702; 85025; 87086; 99282; A9270-GY